=== PATIENT | female | born 1930 | race Caucasian/White ===

== ENCOUNTER 2018-05-04 09:32 | Outpatient (CLI) | payer MEDICARE, OTHER ==
[2018-05-04] MEDS ORDERED: ISOVUE-370 76%-LOCM 1 ML ONE (11:23)
== END 2018-05-04 09:33 | disposition home or self-care (01) ==
LOC: BICCT 09:32
PROVIDERS: ATTEND Family Medicine
DX: R14.0 Abdominal distension (gaseous) (principal); R63.4 Abnormal weight loss; K86.2 Cyst of pancreas
CPT/HCPCS: 74022; 74177

== ENCOUNTER 2018-06-09 16:07 | Emergency (ER) | payer MEDICARE, OTHER ==
--- NOTE | 2018-06-09 17:08 | CT ---
CT CERVICAL SPINE WITHOUT CONTRAST 06/09/18 INDICATION: History of fall with neck pain. COMPARISON: None. FINDINGS: No acute fracture or subluxation is evident. There is mild multilevel spondylosis of the cervical spi ne most pronounced at C5-6. Craniocervical junction appears within normal limits. There is mild mucos al thickening within the sphenoid sinus. Prevertebral soft tissues are within normal limits. The lung apices are clear. IMPRESSION: 1. No acute fracture or subluxation is evident. 2. Mild spondylosis cervical spine. POS: [facility]
--- NOTE | 2018-06-09 17:11 | CT ---
CT OF THE BRAIN WITHOUT CONTRAST 06/09/18 INDICATION: History of fall. FINDINGS: There is a large frontal scalp contusion. There is moderate chronic small white matter ischemic keene e which appears mildly progressed from a comparison in 2008. No definite acute infarct, hemorrhage or hydrocephalus is present. The skull appears intact. Mastoid air cells are clear. IMPRESSION: 1. No acute intracranial abnormality. 2. Progression in the moderate chronic small vessel white matter ischemic change seen when tyree red to the prior exam. 3. Left frontal scalp contusion. POS: [facility]
[2018-06-09] MEDS ORDERED: Bacitracin Zinc 1 Packet ONE (17:35)
[2018-06-09] MEDS ORDERED: Adacel (T-DAP) 0.5 ML VIAL ONE (17:38)
== END 2018-06-09 18:11 | disposition home or self-care (01) ==
LOC: ERS 16:07
DX: S00.03XA Contusion of scalp, initial encounter (principal); E78.5 Hyperlipidemia, unspecified; I10 Essential (primary) hypertension; Z23 Encounter for immunization; W01.0XXA Fall on same level from slipping, tripping and stumbling without subsequent striking against object, initial encounter
CPT/HCPCS: 12011; 70450; 72125; 90471; 90715

== ENCOUNTER 2018-10-13 09:04 | Inpatient (IN) | payer MEDICARE, OTHER ==
[2018-10-13 09:28] LABS: Bilirubin Negative (Negative); Blood, Urine Small (Negative); Glucose, Urine (Dipstick) Negative (Negative); Leukocyte Negative (Negative); Nitrite Negative (Negative); Protein, Urine (Dipstick) 30 mg/dL (Neg-Trace); Urobilinogen 0.2 mg/dL (0.2-1.0)
[2018-10-13 09:30] LABS: Clarity Hazy (Clear); Specific Gravity, Urine 1.026 (1.002-1.036)
[2018-10-13 09:33] LABS: Bacteria/HPF None Seen HPF (None Seen); Hyaline Casts/LPF 0-3 HYALINE CAST LPF (0-3 Hyaline); Other Microscopic Description Less than 2 mL rec'd; RBC/HPF 0-3 HPF (0-3); Squamous Epithelial 0-3 HPF (0-3); WBC/HPF 0-3 HPF (0-3)
[2018-10-13] MEDS ORDERED: Acetaminophen 325 MG TAB ONE (09:48)
[2018-10-13 10:13] LABS: #Lymphocytes 1.2 thou/uL (1.20-3.40); #Monocytes 0.3 thou/uL (0.11-0.59); #Neutrophils 4.3 thou/uL (1.40-6.50); %Basophils 0.2 % (0.0-1.0); %Eosinophils 0.4 % (0.0-10.0); %Lymphocytes 20.7 % (21.0-51.0); %Monocytes 4.5 % (0.0-10.0); %Neutrophils 74.3 % (42.0-75.0); Hemoglobin 14.1 g/dL (12.0-16.0); Mean Corpuscular HGB CONC 34.6 g/dL (32.0-36.0); Mean Corpuscular Hemoglobin 32.3 pg (27.0-31.0); Mean Corpuscular Volume 93.3 fL (78.0-98.0); Mean Platelet Volume 7.5 fL (7.4-10.4); Platelet Count 206 thou/uL (130-400); Red Blood Cell (RBC) Count 4.38 mill/uL (4.20-5.40); White Blood Cell (WBC) Count 5.8 thou/uL (4.8-10.8)
[2018-10-13] MEDS ORDERED: ISOVUE-370 76%-LOCM 1 ML ONE (10:15)
[2018-10-13 10:37] LABS: ALT (SGPT) 46 U/L (8-55); AST (SGOT) 35 U/L (5-34); Albumin 4.3 g/dL (3.4-4.8); Alkaline Phosphatase 47 U/L (40-150); Anion Gap 17 mmol/L (10-20); BUN (Urea Nitrogen) 20 mg/dL (9.8-20.1); Bilirubin, Total 0.6 mg/dL (0.2-1.2); Calc. Creatinine Clearance 0 mL/min (70-130); Calcium 10.1 mg/dL (7.8-10.44); Carbon Dioxide 26 mmol/L (23-31); Chloride 101 mmol/L (98-107); Estimated GFR-MDRD 38; Globulin 2.6 g/dL (2.4-3.5); Glucose 145 mg/dL (83-110); Potassium 3.8 mmol/L (3.5-5.1); Protein, Total 6.9 g/dL (6.0-8.3); Sodium 140 mmol/L (136-145)
[2018-10-13 10:41] LABS: CKMB 4.7 ng/mL (0-6.6); Troponin I 0.037 ng/mL (< 0.028)
--- NOTE | 2018-10-13 10:58 | RAD ---
RIGHT KNEE 4 VIEWS: HISTORY: Fall with knee pain. FINDINGS: No signs of fracture, dislocation, or joint effusion. Fairly minimal arthritic changes of the knee a re present. The bones appear slightly demineralized. IMPRESSION: No acute findings. POS: [facility]
--- NOTE | 2018-10-13 10:59 | RAD ---
PORTABLE CHEST: HISTORY: Multiple falls. Slipped off bed today. FINDINGS: The heart size is enlarged. There are atherosclerotic changes of the aorta. The lungs are clear of any infiltrates. I do not appreciate ay rib fractures. No signs of pneumothorax or pleural effusion . IMPRESSION: Cardiomegaly. POS: [facility]
[2018-10-13] MEDS ORDERED: Aspirin 325 MG TAB ONE (11:10)
--- NOTE | 2018-10-13 12:37 | HP ---
PRIMARY CARE PHYSICIAN: Dr. Kiera Bacon. REASON FOR ADMISSION: Generalized weakness, elevated troponin, frequent falls. HISTORY OF PRESENT ILLNESS: An 88-year-old female who has underlying history of hypertension, diabet es type 2, dyslipidemia, and hypothyroidism who lives at home with family. For last several months, patient has increasing weakness. Patient had frequent falls as well. Per family member, patient had one fall in May. At that time, she had a contusion in scalp required emergency room visit. This m orning, the patient was trying to get out of bed and she fell down and subsequently she was not able to get up from the floor. Lately, patient is becoming more and more forgetful. The patient requires assistance with all daily activities of routine life. The patient is also forgetting to take medica tion. Patient never had any agitation or restlessness. Patient's family member also worried about her abdominal distention. Patient's primary care physicia n was trying to treat her with stool softener without any significant improvement. The patient's vinita etite is also reduced and she lost significant amount of weight. The patient's family member reports that for last few months, she is gradually going downhill in her overall health. REVIEW OF SYSTEMS: The following complete review of systems was negative, unless otherwise mentioned in the HPI or below: Constitutional: Weight loss or gain, ability to conduct usual activities. Skin: Rash, itching. Eyes: Double vision, pain. ENT/Mouth: Nose bleeding, neck stiffness, pain, tenderness. Cardiovascular: Palpitations, dyspnea on exertion, orthopnea. Respiratory: Shortness of breath, wheezing, cough, hemoptysis, fever or night sweats. Gastrointestinal: Poor appetite, abdominal pain, heartburn, nausea, vomiting, constipation, or diarr hea. Genitourinary: Urgency, frequency, dysuria, nocturia. Musculoskeletal: Pain, swelling. Neurologic/Psychiatric: Anxiety, depression. Allergy/Immunologic: Skin rash, bleeding tendency. Review of systems tried to review with the patient, but not reliable because of patient's cognitive i mpairment. PAST MEDICAL HISTORY: Hypertension, diabetes type 2, dyslipidemia, hypothyroidism, dementia, physica l deconditioning, chronic constipation. PAST SURGICAL HISTORY: Patient is not able to provide any detailed previous surgical history. PAST PSYCHIATRIC HISTORY: Reviewed and negative. ALLERGIES: No known drug allergy. CURRENT HOME MEDICATIONS: Aspirin 81 mg p.o. daily, hydrochlorothiazide 12.5 mg daily, Prinzide 20/1 2.5 one tablet daily, metformin 500 mg twice daily, Zocor 20 mg at bedtime, Synthroid 100 mcg p.o. da caren, vitamin D3 400 units daily, calcium with vitamin D 1 tablet p.o. daily. FAMILY HISTORY: No strong family history of premature coronary artery disease, stroke or cancer. SOCIAL HISTORY: Patient is . Her is accompanying him. Lives at home. No history of tobacco, alcohol or illicit drug abuse. She ambulates with a cane. She had unsteady gait. EMERGENCY ROOM COURSE: Patient was planned to discharge from ER to rehab, but as troponin came back positive and that is why patient decided to be admitted for observation, she is given aspirin 325 mg, IV fluid, and atenolol. PHYSICAL EXAMINATION: VITAL SIGNS: Currently, blood pressure 191/101, pulse 87, respiratory rate 18, temperature 97.4, sat uration 95% on room air and weight 65 kilograms. GENERAL: Patient is currently alert, awake. Follows simple commands, but cognitive function poor. HEAD: Normocephalic, atraumatic. EYES: Pupils round, reactive to light. Extraocular muscle intact. ENT: Oropharynx within normal limits. Moist mucous membranes, no oral lesion, no pharyngeal erythem a, no exudate. NECK: Supple, no JVD, no thyromegaly, no carotid bruit. LUNGS: Clear to auscultation without any rhonchi or rales. CARDIAC: S1 and S2 regular without any murmur. ABDOMEN: Protuberant, bowel sounds present. Hard mass noted on the right side, tender. No suprapub ic tenderness, no peritoneal sign, no guarding, no rigidity. GENITOURINARY: Within normal limit. BACK: Stage II decubitus ulcer at coccyx present on admission. Upper extremity passive movements of all joints are normal. Lower extremity passive movements of all joints are normal. Good distal pul sation. SKIN: No skin rash. HEMATOLOGIC: No lymphadenopathy. PSYCHIATRIC: Normal affect. NEUROLOGIC: She is moving all 4 limbs. Her speech is normal. Grossly nonfocal neurological examina tion. IMAGING DATA AND SIGNIFICANT LABORATORY DATA: EKG showing nonspecific ST-T changes, left axis deviat ion. CBC: WBC 5.8, hemoglobin 14.1, platelet 206. BMP: Sodium 140, potassium 3.8, chloride 101, c arbon dioxide 26, anion gap 17, BUN 20, creatinine 1.31, glucose 145, calcium 10.1. LFT: AST 35, AL T 46, alkaline phosphatase 47, albumin 4.3, CK-MB 4.7, troponin I 0.037, TSH 86.97. Urinalysis unrem arkable. Chest x-ray based on my review, cardiomegaly. Knee x-ray which was done for patient's knee pain negative for any fracture or dislocation. ASSESSMENT AND PLAN/IMPRESSION: 1. Generalized weakness, multifactorial. Patient has decreasing muscle mass from poor p.o. intake. She has chronic constipation and abdominal distention and that is preventing her to eat more. James cadet also has uncontrolled hypothyroidism. At this point, we will need to rule out cardiac etiology. We will treat underlying hypothyroidism. The patient will need PT, OT, and family member requesting rehabilitation evaluation if she qualifies. 2. Elevated troponin. Patient does not have any chest pain. Her EKG is nonspecific. We will do se rial cardiac enzymes. We will see trend of troponin and we will monitor on telemetry floor. I spoke with the family member as patient does not have any angina. We altogether agreed not to do any stre ss test on her because they are not interested in getting any further in treatment with a cardiac cat heterization or stent or any kind of surgery in case of abnormal stress test and that is why we will not perform any stress test at this point, but will do only echocardiography to assess ejection fract ion and other structural abnormality. 3. Hypothyroidism, uncontrolled due to her noncompliance with the treatment. The patient will be gi erik Synthroid 150 mcg p.o. daily and at that dose will be continued and repeat TSH will be checked af ter 3 months with a followup with primary care physician. 4. Mild acute kidney injury. The patient will be given gentle IV fluid at NS 50 mL per hour. 5. Hypertension. The patient's blood pressure is not well controlled. We will continue with lisino pril 20 mg p.o. daily. We will discontinue hydrochlorothiazide. We will add Coreg 12.5 mg twice fabienne ly and we will use hydralazine on p.r.n. basis. 6. Diabetes type 2. We will continue insulin as per sliding scale protocol. We will continue metfo rmin 500 mg twice daily. 7. Dyslipidemia. Check lipid profile tomorrow and continue Zocor 20 mg p.o. at bedtime. 8. Chronic constipation. We will do x-ray abdomen to see sodium. We will do CT of the abdomen and pelvis given patient has abdominal distention and patient's family member is interested in if any spa ce occupying lesion contributing to her quad or Chronic constipation. We will do CT and based on janeth t finding, we will decide next step will try to give her a Fleet enema. 9. Alzheimer's dementia. Patient needs supportive care. The patient will not get any benefit with current Alzheimer's medication. 10. Deep venous thrombosis prophylaxis. Sequential compression device boots. 11. Gastrointestinal prophylaxis, Pepcid 20 mg p.o. b.i.d. 12. Code status. I spoke with the family member, but they wanted to take time to decide about her c ode status and they will let us know later on today or maybe tomorrow morning. At that time, we will change accordingly, but currently we are keeping full code status. DISPOSITION AND PLAN: Based on clinical course.
[2018-10-13] MEDS ORDERED: Eucerin (Mineral Oil/Petrolatum,White) 30 gm Jar TOP PRN (14:22)
[2018-10-13] MEDS ORDERED: Acetaminophen 325 MG TAB PO PRN (14:22)
[2018-10-13] MEDS ORDERED: Diabetic Tussin 200 MG/10 ML UDCUP PO PRN (14:22)
[2018-10-13] MEDS ORDERED: hydrALAZINE 20 MG/ML VIAL SLOW IVP PRN (14:22)
[2018-10-13] MEDS ORDERED: Sodium Chloride 0.65% Nasal 44 ML BOT EA NARE PRN (14:22)
[2018-10-13] MEDS ORDERED: HumaLOG 300 UNITS/3 ML VIAL SC PRN (14:22)
[2018-10-13] MEDS ORDERED: Bisacodyl 10 MG SUPP PR PRN (14:22)
[2018-10-13] MEDS ORDERED: Senokot S 8.6-50 MG TAB PO PRN (14:22)
[2018-10-13] MEDS ORDERED: Dextrose 5% in Water 1,000 ML IV PRN (14:22)
[2018-10-13] MEDS ORDERED: Bisacodyl 5 MG TAB PO PRN (14:22)
[2018-10-13] MEDS ORDERED: Artificial Tear Sol 15 ML BOT EA EYE PRN (14:22)
[2018-10-13] MEDS ORDERED: Dextrose 50% Abboject 50 ML SYRINGE SLOW IVP PRN (14:22)
[2018-10-13] MEDS ORDERED: Nitroglycerin 0.4 MG TAB (25 Tab Bottle) SL PRN (14:22)
[2018-10-13] MEDS ORDERED: Ondansetron PF 4 MG/2 ML Vial IVP PRN (14:22)
[2018-10-13 14:28] LABS: Troponin I 0.054 ng/mL (< 0.028)
[2018-10-13] MEDS ORDERED: Fleet Enema 133 ML BOT PR SCH (15:00)
[2018-10-13] MEDS: Nitroglycerin 2% Ointment 1 INCH/1 GM Packet TOP SCH ×2 (15:37→22:16)
[2018-10-13 17:21] VITALS: BMI 19.0
--- NOTE | 2018-10-13 17:37 | CT ---
CT ABDOMEN AND PELVIS WITH IV CONTRAST: HISTORY: An 88-year-old female with a history of abdominal distention. Unable to have bowel movement. COMPARISON: 05/04/2018 FINDINGS: There is evidence for a moderate sized pericardial effusion, measuring up to 2.4 cm, overlying the le ft ventricle. Small bilateral pleural effusions. There is bilateral vascular congestion with some m inimal subsegmental atelectasis in the lung bases. Small, stable left lobe of liver cyst, evidence f or minimal ascites. Some nonspecific edematous changes throughout the mesentery, as well as extensiv e subcutaneous edema, evidence for anasarca. Small, stable cyst in the pancreatic head, at 1 cm, whe n comparison is made to 05/04/2018. There is no renal calculus or ureteral calculus. There is some very mild fullness of the left upper renal collecting system and slightly more moderate fullness of the right upper renal collecting syste m. There is very extensive solid fecal material throughout the entire colon, with a dilated sigmoid colon, transverse colon, left colon, and right colon, and a very markedly and severely dilated rectum , up to 11.7 cm transversely, although this is not significantly changed from the prior study. No ev idence for abscess. IMPRESSION: 1. Developing pericardial effusion. 2. Subcutaneous tissue fat stranding with some minimal fat stranding within the mesentery and small amount of ascites and small bilateral pleural effusions, evidence for anasarca. 3. Stable, small liver cyst and pancreatic head cyst, and cholelithiasis. 4. Mild to moderate dilatation of both right and left upper renal collecting systems, without renal calculus or genitourinary calculus. 5. Very severe solid fecal material throughout the entire colon with a markedly dilated colon and a very markedly dilated rectum, but this shows little change from the prior study. 6. No other significant acute process. POS: [facility]
[2018-10-13] MEDS: Sodium Chloride 0.9% 1,000 ML IV SCH (18:20)
[2018-10-13] MEDS: Atorvastatin Calcium 10 MG TAB PO SCH (22:15)
[2018-10-13] MEDS: Famotidine 20 MG TAB PO SCH (22:15)
[2018-10-13] MEDS: Carvedilol 6.25 MG TAB PO SCH (22:15)
[2018-10-14] MEDS: Levothyroxine 175 MCG TAB PO SCH (06:08)
[2018-10-14] MEDS: Nitroglycerin 2% Ointment 1 INCH/1 GM Packet TOP SCH ×3 (06:08→22:04)
[2018-10-14 06:10] LABS: #Lymphocytes 0.8 thou/uL (1.20-3.40); #Monocytes 0.4 thou/uL (0.11-0.59); #Neutrophils 7.4 thou/uL (1.40-6.50); %Basophils 0.1 % (0.0-1.0); %Lymphocytes 8.8 % (21.0-51.0); %Monocytes 4.8 % (0.0-10.0); %Neutrophils 86.3 % (42.0-75.0); Hemoglobin 13.1 g/dL (12.0-16.0); Mean Corpuscular HGB CONC 35.1 g/dL (32.0-36.0); Mean Corpuscular Hemoglobin 32.5 pg (27.0-31.0); Mean Corpuscular Volume 92.8 fL (78.0-98.0); Mean Platelet Volume 7.4 fL (7.4-10.4); Platelet Count 216 thou/uL (130-400); RBC Distribution Width 13.1 % (11.5-14.5); Red Blood Cell (RBC) Count 4.02 mill/uL (4.20-5.40); White Blood Cell (WBC) Count 8.6 thou/uL (4.8-10.8)
[2018-10-14 06:27] LABS: Anion Gap 16 mmol/L (10-20); BUN (Urea Nitrogen) 17 mg/dL (9.8-20.1); Calc. Creatinine Clearance 30 mL/min (70-130); Calcium 8.2 mg/dL (7.8-10.44); Carbon Dioxide 23 mmol/L (23-31); Cardiac Risk 3.8 (Less than 4.5); Chloride 102 mmol/L (98-107); Cholesterol 235 mg/dl (< 200 Desired); Estimated GFR-MDRD 46; Glucose 194 mg/dL (83-110); HDL Cholesterol 62 mg/dL (>60 Neg Risk); LDL Cholesterol, Calculated 151 mg/dL; Potassium 3.7 mmol/L (3.5-5.1); Sodium 137 mmol/L (136-145); Triglycerides 111 mg/dL (Less than 150)
[2018-10-14] MEDS ORDERED: Prevnar 13-Val Conj/PF 0.5 ML SYRINGE IM ONE (09:00)
[2018-10-14] MEDS ORDERED: Polyethylene Glycol 3350 17 GM Packet PO SCH (09:00)
[2018-10-14] MEDS: Carvedilol 6.25 MG TAB PO SCH ×2 (09:03→22:04)
[2018-10-14] MEDS: Polyethylene Glycol 3350 17 GM Packet PO SCH ×3 (09:03→22:05)
[2018-10-14] MEDS: Lisinopril 20 MG TAB PO SCH (09:03)
[2018-10-14] MEDS: Famotidine 20 MG TAB PO SCH ×2 (09:04→22:05)
--- NOTE | 2018-10-14 10:16 | PDOC.PN ---
- Subjective Encounter Start Date: 10/14/18 Encounter Start Time: 07:30 -: old records requested/rev pt's daughter bedside, she was given enema last night after that she had lot of BM - Objective Resuscitation Status: Resuscitation Status FULL:Full Resuscitation MAR Reviewed: Yes Vital Signs & Weight: Vital Signs (12 hours) Temp Pulse Resp BP Pulse Ox 10/14/18 04:00 98.7 F 69 12 124/69 98 10/14/18 00:00 98 F 85 16 145/79 H 95 Weight Weight 118 lb Result Diagrams: 10/14/18 05:38 10/14/18 05:38 Additional Labs: Accuchecks 10/14/18 10/13/18 10/13/18 05:33 21:15 20:53 POC Glucose 216 H 199 H 142 H 10/13/18 17:53 POC Glucose 123 H Radiology Reviewed by me: Yes (CT abdomen reviewed) EKG Reviewed by me: Yes (NSR) Phys Exam - Physical Examination Constitutional: NAD HEENT: PERRLA, moist MMs, sclera anicteric Neck: no JVD, supple Respiratory: no wheezing, no rales, no rhonchi Cardiovascular: RRR, no significant murmur, no rub Gastrointestinal: soft, no distention, positive bowel sounds discomfort noted Musculoskeletal: no edema, pulses present Neurological: non-focal, normal sensation Lymphatic: no nodes Psychiatric: normal affect Skin: no rash, normal turgor Dx/Plan (1) Acute kidney injury Code(s): N17.9 - ACUTE KIDNEY FAILURE, UNSPECIFIED Status: Acute Comment: improved (2) Constipation Code(s): K59.00 - CONSTIPATION, UNSPECIFIED Status: Acute Comment: improving (3) Elevated troponin Code(s): R74.8 - ABNORMAL LEVELS OF OTHER SERUM ENZYMES Status: Acute Comment: demand ischemia (4) Recurrent falls Code(s): R29.6 - REPEATED FALLS Status: Acute (5) Weakness generalized Code(s): R53.1 - WEAKNESS Status: Acute (6) Diabetes type 2, controlled Code(s): E11.9 - TYPE 2 DIABETES MELLITUS WITHOUT COMPLICATIONS Status: Chronic (7) Dyslipidemia Code(s): E78.5 - HYPERLIPIDEMIA, UNSPECIFIED Status: Chronic (8) Hypertension Code(s): I10 - ESSENTIAL (PRIMARY) HYPERTENSION Status: Chronic (9) Hypothyroidism Code(s): E03.9 - HYPOTHYROIDISM, UNSPECIFIED Status: Chronic (10) Protein-calorie malnutrition, moderate Code(s): E44.0 - MODERATE PROTEIN-CALORIE MALNUTRITION Status: Chronic (11) Dementia Code(s): F03.90 - UNSPECIFIED DEMENTIA WITHOUT BEHAVIORAL DISTURBANCE Status: Chronic - Plan cont current plan of care, plan discussed w/ family, PT/OT, social services assistant * will give one more fleet enema * will consult GI for evaluation * medication reviewed as below * symptomatic treatment * discussed with daughter bedside * will monitor today. * may need placement Review of Systems - Review of Systems Other: not reliable due to her dementia - Medications/Allergies Allergies/Adverse Reactions: Allergies Allergy/AdvReac Type Severity Reaction Status Date / Time No Known Allergies Allergy Unverified 10/13/18 14:14 Medications: Current Medications Acetaminophen (Tylenol) 650 mg PO Q4H PRN PRN Reason: Headache/Fever/Mild Pain (1-3) Artificial Tears (Tears Renewed 15ml Bottle) 2 drop EA EYE PRN PRN PRN Reason: Dry Eyes Aspirin (Aspirin Chewable) 81 mg PO DAILY [facility] Last Admin: 10/14/18 09:03 Dose: 81 mg Atorvastatin Calcium (Lipitor) 10 mg PO HS [facility] Last Admin: 10/13/18 22:15 Dose: 10 mg Bisacodyl (Dulcolax) 10 mg PO DAILYPRN PRN PRN Reason: Constipation Bisacodyl (Dulcolax) 10 mg MT DAILYPRN PRN PRN Reason: Constipation Carvedilol (Coreg) 12.5 mg PO BID [facility] Last Admin: 10/14/18 09:03 Dose: 12.5 mg Dextrose/Water (Dextrose 50%) 25 gm SLOW IVP PRN PRN PRN Reason: Hypoglycemia Famotidine (Pepcid) 20 mg PO BID [facility] Last Admin: 10/14/18 09:04 Dose: 20 mg Glucagon (Glucagon) 1 mg IM PRN PRN PRN Reason: Hypoglycemia Guaifenesin (Robitussin Sf) 200 mg PO Q4H PRN PRN Reason: Cough Hydralazine HCl (Apresoline) 10 mg SLOW IVP Q4H PRN PRN Reason: SBP > 180 and HR < 70 Last Admin: 10/13/18 15:37 Dose: 10 mg Sodium Chloride (Normal Saline 0.9%) 1,000 mls @ 50 mls/hr IV .Q20H [facility] Last Admin: 10/13/18 18:20 Dose: 1,000 mls Dextrose/Water (D5w) 1,000 mls @ 0 mls/hr IV .Q0M PRN PRN Reason: Hypoglycemia Insulin Human Lispro (Humalog) 0 units SC .MODERATE SLIDING SC PRN PRN Reason: Moderate Correctional Scale Insulin Human Lispro (Humalog) 0 units SC .BEDTIME SLIDING SC PRN PRN Reason: Bedtime Correctional Scale Levothyroxine Sodium (Synthroid) 175 mcg PO 0600 [facility] Last Admin: 10/14/18 06:08 Dose: 175 mcg Lisinopril (Zestril) 20 mg PO DAILY [facility] Last Admin: 10/14/18 09:03 Dose: 20 mg Mineral Oil/White Petrolatum (Eucerin Cream) 0 gm TOP BIDPRN PRN PRN Reason: Dry Skin Nitroglycerin (Nitro-Bid 2% Ointment) 0.5 inch TOP Q8HR [facility] Last Admin: 10/14/18 06:08 Dose: 0.5 inch Nitroglycerin (Nitrostat) 0.4 mg SL Q5MIN PRN PRN Reason: Chest Pain Ondansetron HCl (Zofran) 4 mg IVP Q6H PRN PRN Reason: Nausea/Vomiting Polyethylene Glycol (Miralax) 17 gm PO TID [facility] Last Admin: 10/14/18 09:03 Dose: 17 gm Senna/Docusate Sodium (Senokot S) 2 tab PO BID PRN PRN Reason: Constipation Sodium Chloride ([place] Nasal [place] 0.65%) 0 ml EA NARE QIDPRN PRN PRN Reason: Nasal Congestion
[2018-10-14] MEDS: Sodium Chloride 0.9% 1,000 ML IV SCH (11:49)
[2018-10-14] MEDS: Fleet Enema 133 ML BOT PR SCH ×2 (14:16→14:50)
[2018-10-14] MEDS: Atorvastatin Calcium 10 MG TAB PO SCH (22:04)
[2018-10-15] MEDS: Levothyroxine 175 MCG TAB PO SCH (06:02)
[2018-10-15] MEDS: Nitroglycerin 2% Ointment 1 INCH/1 GM Packet TOP SCH ×3 (06:03→20:41)
[2018-10-15] MEDS: Sodium Chloride 0.9% 1,000 ML IV SCH ×2 (06:37→11:32)
[2018-10-15] MEDS: Lisinopril 20 MG TAB PO SCH (09:21)
[2018-10-15] MEDS: Famotidine 20 MG TAB PO SCH ×2 (09:21→20:40)
[2018-10-15] MEDS: Carvedilol 6.25 MG TAB PO SCH ×2 (09:21→20:40)
[2018-10-15] MEDS: Polyethylene Glycol 3350 17 GM Packet PO SCH ×3 (09:22→20:41)
--- NOTE | 2018-10-15 10:06 | PDOC.PN ---
- Subjective Encounter Start Date: 10/15/18 Encounter Start Time: 07:40 -: old records requested/rev Patient seen and examined. No new complaints. No overnight events - Objective Resuscitation Status: Resuscitation Status FULL:Full Resuscitation MAR Reviewed: Yes Vital Signs & Weight: Vital Signs (12 hours) Temp Pulse Resp BP Pulse Ox 10/15/18 04:00 98.0 F 58 L 14 122/61 96 10/15/18 03:00 95 Weight Weight 118 lb I&O: 10/14/18 10/15/18 10/16/18 06:59 06:59 06:59 Intake Total 860 Balance 860 Result Diagrams: 10/14/18 05:38 10/14/18 05:38 Additional Labs: Accuchecks 10/15/18 10/14/18 10/14/18 05:57 21:07 10:56 POC Glucose 133 H 129 H 173 H EKG Reviewed by me: Yes (nsr) Phys Exam - Physical Examination Constitutional: NAD HEENT: PERRLA, moist MMs, sclera anicteric Neck: no JVD, supple Respiratory: no wheezing, no rales, no rhonchi Cardiovascular: RRR, no significant murmur, no rub Gastrointestinal: soft, non-tender, no distention, positive bowel sounds Musculoskeletal: no edema, pulses present Neurological: non-focal, normal sensation, moves all 4 limbs Lymphatic: no nodes Psychiatric: normal affect Skin: no rash, normal turgor Dx/Plan (1) Acute kidney injury Code(s): N17.9 - ACUTE KIDNEY FAILURE, UNSPECIFIED Status: Acute Comment: improved (2) Constipation Code(s): K59.00 - CONSTIPATION, UNSPECIFIED Status: Acute Comment: improving (3) Elevated troponin Code(s): R74.8 - ABNORMAL LEVELS OF OTHER SERUM ENZYMES Status: Acute Comment: demand ischemia (4) Recurrent falls Code(s): R29.6 - REPEATED FALLS Status: Acute (5) Weakness generalized Code(s): R53.1 - WEAKNESS Status: Acute (6) Diabetes type 2, controlled Code(s): E11.9 - TYPE 2 DIABETES MELLITUS WITHOUT COMPLICATIONS Status: Chronic (7) Dyslipidemia Code(s): E78.5 - HYPERLIPIDEMIA, UNSPECIFIED Status: Chronic (8) Hypertension Code(s): I10 - ESSENTIAL (PRIMARY) HYPERTENSION Status: Chronic (9) Hypothyroidism Code(s): E03.9 - HYPOTHYROIDISM, UNSPECIFIED Status: Chronic (10) Protein-calorie malnutrition, moderate Code(s): E44.0 - MODERATE PROTEIN-CALORIE MALNUTRITION Status: Chronic (11) Dementia Code(s): F03.90 - UNSPECIFIED DEMENTIA WITHOUT BEHAVIORAL DISTURBANCE Status: Chronic - Plan cont current plan of care, plan discussed w/ family, PT/OT, psych social worker * family wants to consider rehab * dc tele * transfer to medical * Gi will see her today per family request * medication reviewed as below * symptomatic treatment * will get xray kub today. Review of Systems - Review of Systems Other: not reliable due to dementia - Medications/Allergies Allergies/Adverse Reactions: Allergies Allergy/AdvReac Type Severity Reaction Status Date / Time No Known Allergies Allergy Unverified 10/13/18 14:14 Medications: Current Medications Acetaminophen (Tylenol) 650 mg PO Q4H PRN PRN Reason: Headache/Fever/Mild Pain (1-3) Artificial Tears (Tears Renewed 15ml Bottle) 2 drop EA EYE PRN PRN PRN Reason: Dry Eyes Aspirin (Aspirin Chewable) 81 mg PO DAILY [facility] Last Admin: 10/15/18 09:21 Dose: 81 mg Atorvastatin Calcium (Lipitor) 10 mg PO HS [facility] Last Admin: 10/14/18 22:04 Dose: 10 mg Bisacodyl (Dulcolax) 10 mg PO DAILYPRN PRN PRN Reason: Constipation Bisacodyl (Dulcolax) 10 mg MT DAILYPRN PRN PRN Reason: Constipation Carvedilol (Coreg) 12.5 mg PO BID [facility] Last Admin: 10/15/18 09:21 Dose: 12.5 mg Dextrose/Water (Dextrose 50%) 25 gm SLOW IVP PRN PRN PRN Reason: Hypoglycemia Famotidine (Pepcid) 20 mg PO BID [facility] Last Admin: 10/15/18 09:21 Dose: 20 mg Glucagon (Glucagon) 1 mg IM PRN PRN PRN Reason: Hypoglycemia Guaifenesin (Robitussin Sf) 200 mg PO Q4H PRN PRN Reason: Cough Hydralazine HCl (Apresoline) 10 mg SLOW IVP Q4H PRN PRN Reason: SBP > 180 and HR < 70 Last Admin: 10/13/18 15:37 Dose: 10 mg Sodium Chloride (Normal Saline 0.9%) 1,000 mls @ 50 mls/hr IV .Q20H [facility] Last Admin: 10/15/18 06:37 Dose: Not Given Dextrose/Water (D5w) 1,000 mls @ 0 mls/hr IV .Q0M PRN PRN Reason: Hypoglycemia Insulin Human Lispro (Humalog) 0 units SC .MODERATE SLIDING SC PRN PRN Reason: Moderate Correctional Scale Insulin Human Lispro (Humalog) 0 units SC .BEDTIME SLIDING SC PRN PRN Reason: Bedtime Correctional Scale Levothyroxine Sodium (Synthroid) 175 mcg PO 0600 [facility] Last Admin: 10/15/18 06:02 Dose: 175 mcg Lisinopril (Zestril) 20 mg PO DAILY [facility] Last Admin: 10/15/18 09:21 Dose: 20 mg Mineral Oil/White Petrolatum (Eucerin Cream) 0 gm TOP BIDPRN PRN PRN Reason: Dry Skin Nitroglycerin (Nitro-Bid 2% Ointment) 0.5 inch TOP Q8HR [facility] Last Admin: 10/15/18 06:03 Dose: Not Given Nitroglycerin (Nitrostat) 0.4 mg SL Q5MIN PRN PRN Reason: Chest Pain Ondansetron HCl (Zofran) 4 mg IVP Q6H PRN PRN Reason: Nausea/Vomiting Polyethylene Glycol (Miralax) 17 gm PO TID [facility] Last Admin: 10/15/18 09:22 Dose: 17 gm Senna/Docusate Sodium (Senokot S) 2 tab PO BID PRN PRN Reason: Constipation Sodium Chloride ([place] Nasal [place] 0.65%) 0 ml EA NARE QIDPRN PRN PRN Reason: Nasal Congestion
--- NOTE | 2018-10-15 16:41 | RAD ---
ONE VIEW ABDOMEN: History: Constipation. Comparison: None. FINDINGS: There is evidence of previous vertebroplasty change. Fecal material is noted, predominately in the ri ght hemicolon and to a lesser extent the descending colon. No definite evidence of constipation. No s uspicious densities in the abdomen or pelvis. No pneumoperitoneum on the supine projection. IMPRESSION: No radiographic evidence of constipation. POS: [facility]
--- NOTE | 2018-10-15 17:50 | CON ---
DATE OF CONSULTATION: 10/15/2018 REASON FOR CONSULTATION: Chronic constipation. CONSULTING PHYSICIAN: Dr. Ellie Paul. HISTORY OF PRESENT ILLNESS: The patient is an 88-year-old female with past medical history of hypert ension, diabetes, hyperlipidemia, hypothyroidism, progressing dementia and chronic constipation who i nitially presented to the hospital for the evaluation of frequent falls. Per chart review and with kari jordan with family at bedside, the patient recently had sustained a fall where she was trying to g et out of bed and experienced acute weakness and was fell to the floor and was not able to return to either a sitting or standing position. She was subsequently taken to the [facility] ER for evaluat ion. While in the ER, she was noted to have increased abdominal distention that was also echoed by mickey jimenez's comments stating that she had been having increased abdominal distention over the last month, but also been having constipation issues that have been present for the last 6 months. Upon conferr ing with the patient and family, they were unable to recount her stool frequency, stool consistency o r measures up until this point that had been taken to correct these issues. They were also unclear a s to medications that were being administered at home or whether the medications were actually being taken at home. During this admission to the hospital, she was placed on a fairly aggressive bowel re gimen including as needed use of bisacodyl, enemas and MiraLax 3 times daily in addition to senna/doc usate as needed in order to facilitate having a bowel movement. With this aggressive regimen, she wa s able to have multiple bowel movements yesterday with more semisolid to liquid consistency. Current ly, she denies any nausea, vomiting, fevers, chills, abdominal pain or constipation. REVIEW OF SYSTEMS: A 10-category review of systems was obtained with all responses negative except f or the pertinent positives as was in the HPI. PAST MEDICAL HISTORY: As per HPI. PAST SURGICAL HISTORY: Unknown as the patient and family could not provide any detailed previous jesús gical history. FAMILY HISTORY: Denies any GI malignancies. OUTPATIENT AND INPATIENT MEDICATIONS: Reviewed. ALLERGIES: No known drug allergies. PHYSICAL EXAMINATION: VITAL SIGNS: Temperature 97.8, pulse 61, blood pressure 130/63, respiratory rate 14, satting 96% on room air. GENERAL: The patient was lying in bed in no acute distress, although somewhat somnolent throughout t he entire examination. NECK: Supple. No JVD noted. No scleral icterus noted either. CARDIOVASCULAR: Regular rate and rhythm with no discernible murmurs, gallops or rubs. RESPIRATORY: Clear to auscultation bilaterally with no wheezes or rales. ABDOMEN: Hypoactive bowel sounds, soft, nontender with moderate abdominal distention that was tympan ic to percussion. EXTREMITIES: No cyanosis, clubbing or edema. LABORATORY DATA: CBC with a white blood cell count of 8.6, hemoglobin 13.1, hematocrit 37.3, platele ts 216. Chemistry with sodium of 137, potassium 3.7, chloride 102, CO2 of 23, BUN 17, creatinine 1.1 1, glucose 194, TSH 86.9. 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 ASSESSMENT AND PLAN: The patient is an 88-year-old female with past medical history of hypertension, diabetes, hyperlipidemia, progressing dementia, hypothyroidism, and chronic constipation presenting with continuation of chronic constipation. 1. Constipation: Per the patient's family, they state that the patient had been having complaints o f constipation that had been progressively worsening over the last 6 months. The patient and family were unable to quantify this constipation by either stooling frequency or consistency. However, upon evaluation of her thyroid stimulating hormone, she is significantly hypothyroid at this time raising concern for adequate dosing of the levothyroxine, or if the patient is actually taking at home (I fa vor the latter given the family's account of her medication administration at home) however with aggr essive bowel regimen during this hospitalization, she is now having frequent semi-solid to liquid bow el movements now creating more of a diarrhea type picture than constipation. Her most recent colonos copy was performed on 03/20/2014 which showed a 4 mm tubular adenoma within the cecum, a 1 cm tubular adenoma within the ascending colon, an inflammatory hyperplastic polyp within the rectum, but with t he current clinical situation her constipation is less likely to be due to obstruction or significant polyp formation, but rather slow or delayed colonic transit. RECOMMENDATIONS: 1. With the patient having more frequent watery bowel movements, I would discontinue the senna and d ocusate, in addition to the bisacodyl. 2. I would decrease the MiraLax to twice daily dosing. 3. Add Citrucel 500 mg daily for fiber supplementation. 4. We would avoid any additional enemas at this point. 5. Avoid any narcotics and/or constipating medications. 6. Highly recommend restarting the patient on levothyroxine as severe hypothyroidism could be contri buting to all the above. Given her the resolution of her constipation, we will sign off. I would recommend followup in the GI clinic within 2-3 weeks for further evaluation at that time. Please call with any additional questi ons.
[2018-10-15] MEDS: Atorvastatin Calcium 10 MG TAB PO SCH (20:40)
[2018-10-16] MEDS: Levothyroxine 175 MCG TAB PO SCH (05:11)
[2018-10-16] MEDS: Sodium Chloride 0.9% 1,000 ML IV SCH ×3 (05:12→22:24)
[2018-10-16] MEDS: Nitroglycerin 2% Ointment 1 INCH/1 GM Packet TOP SCH (05:20)
[2018-10-16] MEDS: Famotidine 20 MG TAB PO SCH ×2 (07:57→22:24)
[2018-10-16] MEDS: Polyethylene Glycol 3350 17 GM Packet PO SCH ×2 (07:57→16:22)
[2018-10-16] MEDS: Carvedilol 6.25 MG TAB PO SCH (10:29)
[2018-10-16] MEDS: Lisinopril 20 MG TAB PO SCH (10:30)
[2018-10-16] MEDS ORDERED: ISOVUE-370 76%-LOCM 1 ML ONE (11:53)
--- NOTE | 2018-10-16 12:24 | DIS ---
DATE OF ADMISSION: 10/13/2018 DATE OF DISCHARGE: 10/16/2018 PRIMARY CARE PHYSICIAN: Kiera Bacon MD DISCHARGE DISPOSITION: Pending. PRIMARY DISCHARGE DIAGNOSES: Acute kidney injury, improved; severe constipation, resolved; elevated troponin due to demand ischemia; recurrent fall due to physical deconditioning; moderate protein arlette stanislaw malnutrition; uncontrolled hypothyroidism. SECONDARY DISCHARGE DIAGNOSES: Alzheimer's type of dementia, diabetes type 2, hypertension, dyslipid emia, hypothyroidism. PRIMARY PROCEDURE/OPERATION: None. RADIOLOGICAL INVESTIGATION: Knee x-ray was negative for any fracture. Chest x-ray was normal. Abdo men and pelvis CT scan showed severe constipation. Echocardiography showed normal EF. Abdomen x-ray showed resolution of constipation. SIGNIFICANT LABORATORY DATA: WBC 8.6, hemoglobin 13.1, platelet 216. Sodium 137, creatinine 1.11, c alcium 8.2, LDL 151. TSH of 86. Urinalysis unremarkable. DISCHARGE MEDICATIONS: Aspirin 81 mg daily, calcium with mineral 1 tablet daily, vitamin D3 of 400 u nits p.o. daily, levothyroxine 175 mcg p.o. daily, lisinopril 20 mg p.o. daily, metformin 500 mg p.o. b.i.d., Zocor 20 mg p.o. daily, Lipitor 10 mg p.o. at bedtime, Coreg 12.5 mg p.o. b.i.d., Pepcid 20 mg p.o. daily, MiraLax 17 grams p.o. b.i.d. CONTRAINDICATIONS: None. CODE STATUS: FULL CODE. INPATIENT CONSULTANTS: Dr. Rolly Reardon was consulted while in hospital. TEST RESULTS PENDING ON DISCHARGE: None. ALLERGIES: No known drug allergy. DISCHARGE PLAN: Post hospital, the patient will follow up with primary care physician. HOSPITAL COURSE: An 88-year-old female who was admitted by me. Please see my HPI for further detail s. The patient was brought to the ER because she was falling frequently at home and she was very wea k. In the emergency room, routine evaluation showed elevated troponin and that is why patient was ob served on the telemetry floor. We did serial cardiac enzyme and ruled out acute coronary syndrome, m ostly she has uncontrolled hypothyroidism with TSH 86. She was found with dyslipidemia. She was not taking any medication because of dementia. She was dehydrated when she arrived to emergency room. She was complaining of abdominal pain and that is why we did CT of the abdomen and pelvis and found w ith severe constipation that was treated with Fleet enema and constipation resolved. We did echocard iography which showed normal EF. This patient and family member need not want to go for any aggressi ve intervention and diagnostic tests process. This patient was stabilized and subsequently transferred to medical floor. Family member were intere sted in going to rehab versus correction home. At this point, case filler is working on rehab if she qualifies for rehab. If patient is not qualif gris for rehab, then she may be able to go to correction home under Medicare rules if possible. Otherwise, family will decide later on today to go home with [facility] This patient needs only supportive care. GI saw this patient and she will continue above-m entioned medication. I have seen and examined this patient at bedside. Review of systems not possible because of dementia, but I spoke with the family member at bedside and updated about discharge plan. Paper work for discharge done.
--- NOTE | 2018-10-16 16:14 | CT ---
CT BRAIN WITHOUT CONTRAST: Date: 10/16/18 HISTORY: Left-sided weakness. FINDINGS: Comparison made with exam of 06/09/18. Changes of chronic small vessel ischemic disease are again seen. The ventricular size is stable and t he basilar cisterns are patent. No evidence of acute infarct, hemorrhage, midline shift, or abnormal extra-axial fluid collections are noted. The bony calvarium is intact. The visualized paranasal sinus es and mastoid air cells are well aerated. IMPRESSION: No CT evidence of acute intracranial process. POS: OFF
--- NOTE | 2018-10-16 16:18 | PRG ---
DATE OF SERVICE: 10/16/2018 Ater diagnosis of acute left-sided upper and lower extremity weakness which is predominantly due to r ight MCA, CVA secondary to atherosclerosis, I met with the family at bedside in her room 4435. The p nata's daughter, son, her was present at bedside and I had lengthy discussion about goal of care. I discussed with them about code status, previously family member were not sure about her cod e status and after all family were together and I discussed with them about code status and given bas ic understanding. After that, the patient's decided that the patient's did not want to be resuscitated in her life and that is why based on their request, I have changed to DNR status. Subsequently, I spoke with the family member about feeding tube option in case if patient was not abl e to swallow. In that case, patient's family member at this point okay with the continued feeding op tion. Family member also wanted to continue medical treatment and they do not want any kind of heroic measu res even aggressive intervention in her. Total time spent on advanced care planning is 20 minutes.
--- NOTE | 2018-10-16 17:02 | CT ---
CT ANGIOGRAM OF HEAD WITH CONTRAST CT ANGIOGRAM OF NECK WITH CONTRAST: Date: 10/16/18 HISTORY: Left-sided weakness. COMPARISON: CT brain same date. TECHNIQUE: CT angiogram of head/neck performed after the intravenous administration of contrast. 3D rendering pr ovided. FINDINGS: There is intraluminal filling defect in the distal left main pulmonary artery which appears to extend to the posterior segment of the left upper lobe, as well as within a lingular branch, although incom pletely evaluated. Layering left pleural effusion. Surgical clips along the expected location of the thyroid. No acute cervical spine fracture. No listhesis. No malalignment. The vertebral arteries are codominant. Origins of both vertebral arteries are patent. Origins of both common carotid arteries are patent. Using NASCET criteria, no hemodynamically signifi cant stenosis of the internal carotid arteries. Small volume plaque of the left intradural vertebral artery. The cheesh-na of Baron patent without aneu rysm formation nor thrombosis. Globes are normal. IMPRESSION: 1. Likely a distal left main pulmonary artery embolism, incompletely evaluated. The patient would be nefit from treatment for embolism and a follow-up CT angiogram would be beneficial. 2. Layering left effusion, moderate in size. 3. Using NASCET criteria, no hemodynamically significant stenosis of internal carotid arteries. 4. Intact cheesh-na of Baron without thrombosis, stenosis, nor aneurysm formation. Regina nurse, notified of findings via telephone at 1543 hours. CODE CR. POS: LAN
[2018-10-16] MEDS ORDERED: Enoxaparin Sodium 60 MG/0.6 ML SYRINGE SC SCH (17:30)
--- NOTE | 2018-10-16 17:43 | PRG ---
DATE OF SERVICE: 10/16/2018 SUBJECTIVE: This patient was evaluated by me in the morning in presence of her family. At that time , patient was sleepy and arousable. At that time, we did not notice any weakness even family member did not notice any weakness on the left side. The patient was planned for discharge to home with our [facility] versus rehabilitation versus detention home, but this afternoon when physical therapy evaluating her, at that time they noticed left upper and lower extremity weakness. Patient's speech was clear. She did not have any weakness on the right upper or lower extremity. Onset of this left- sided weakness was not clear. Family member present at bedside. They did not notice as well. OBJECTIVE: VITAL SIGNS: The patient seen and examined at bedside today. Her most recent vital signs, temperatu re 98.2, pulse 56, respiratory rate 18, saturation 92%, blood pressure 113/66, weight 118. GENERAL: The patient is alert, awake, follows command. HEAD: Normocephalic, atraumatic. EYES: Pupils round, reactive to light. ENT: Oropharynx within normal limits. Moist mucous membranes. NECK: Supple. No JVD. LUNGS: Clear to auscultation without any rhonchi or rales. CARDIAC: S1 and S2 regular. No murmur, no gallop. ABDOMEN: Soft and benign, nontender, no peritoneal sign. EXTREMITIES: No edema. NEUROLOGIC: The patient does have dense weakness in left upper and lower extremity. Plantar extenso r on the left side. Right-sided within normal limits. Sensation intact on the left side. Cerebella r sign on the left side unable to test. Reflexes reduced on the left side. Speech intact. SIGNIFICANT LABORATORY DATA: Reviewed. We do not have any more labs today. IMPRESSION AND PLAN: 1. Acute left upper and lower extremity weakness, suspecting right MCA stroke. Onset of time is not certain. At this point, patient is not a candidate for TPA. We will do CT brain without contrast a s well as CT angiography. Neurology will be consulted. Stroke team will be consulted. We will martinez sfer her to stroke floor. We will cancel her discharge. Patient will need PT, OT, speech evaluation . Patient is already on aspirin 81 mg daily, which we will change to 325 mg p.o. daily. We will kenya nge Lipitor to 40 mg p.o. at bedtime. As patient's blood pressure is running low and that is why we will hold on lisinopril and Coreg therapy, we will start IV fluid. We will try to keep her blood pre ssure above around 140 systolic. 2. Elevated troponin. Echocardiography was done and patient does not have any abnormality. The pat ient is on medical therapy. Family member opted not to do any more aggressive intervention. 3. Severe constipation, resolved with Fleet enema. 4. Acute kidney failure improved with hydration. 5. Hypothyroidism. We will continue Synthroid 175 mcg p.o. daily. 6. Deep venous thrombosis prophylaxis, Lovenox 30 mg subcutaneously daily. 7. Gastrointestinal prophylaxis, Pepcid 20 mg p.o. b.i.d. 8. Code status: The patient still remains to be a FULL CODE. Disposition plan based on clinical course. Plan of care discussed with the patient and family member at bedside.
[2018-10-16] MEDS ORDERED: Clopidogrel Bisulfate 75 MG TAB PO SCH (18:00)
[2018-10-16] MEDS: Atorvastatin Calcium 40 MG TAB PO SCH (22:24)
--- NOTE | 2018-10-16 23:50 | ULT ---
BILATERAL LOWER EXTREMITY VENOUS DOPPLER ULTRASOUND: 10/16/2018 HISTORY: Pulmonary embolism. Assess for DVT. COMPARISON: None. TECHNIQUE: Multiplanar dudley-scale sonographic imaging of the venous structures of the bilateral lower extremitie s obtained with color-flow and spectral analysis. FINDINGS: The bilateral common femoral veins, the greater saphenous veins, the profunda femoral veins, the femo ral veins, the popliteal veins, and the posterior tibial veins are patent. There is normal blood josie w, augmentation, and compression within the deep venous system bilaterally. No evidence for DVT is s een on either side. IMPRESSION: No evidence for deep venous thrombosis of either lower extremity. POS: [facility]
[2018-10-17 05:24] LABS: ALT (SGPT) 20 U/L (8-55); AST (SGOT) 16 U/L (5-34); Albumin 2.9 g/dL (3.4-4.8); Alkaline Phosphatase 43 U/L (40-150); Anion Gap 12 mmol/L (10-20); BUN (Urea Nitrogen) 32 mg/dL (9.8-20.1); Bilirubin, Total 0.8 mg/dL (0.2-1.2); Calc. Creatinine Clearance 30 mL/min (70-130); Calcium 7.6 mg/dL (7.8-10.44); Carbon Dioxide 20 mmol/L (23-31); Chloride 109 mmol/L (98-107); Estimated GFR-MDRD 48; Globulin 2.1 g/dL (2.4-3.5); Glucose 147 mg/dL (83-110); Sodium 138 mmol/L (136-145)
[2018-10-17 05:53] LABS: Band 39 % (5-11); Hemoglobin 13.1 g/dL (12.0-16.0); Lymphocytes 14 % (21-51); MDiff Complete? YES; Mean Corpuscular HGB CONC 34.6 g/dL (32.0-36.0); Mean Corpuscular Hemoglobin 32.8 pg (27.0-31.0); Mean Corpuscular Volume 94.6 fL (78.0-98.0); Monocytes 7 % (0-10); Neutrophil 40 % (42-75); Platelet Count 195 thou/uL (130-400); RBC Distribution Width 13.1 % (11.5-14.5); Red Blood Cell (RBC) Count 3.99 mill/uL (4.20-5.40); White Blood Cell (WBC) Count 6.5 thou/uL (4.8-10.8)
[2018-10-17] MEDS: Levothyroxine 175 MCG TAB PO SCH (06:25)
[2018-10-17] MEDS: HumaLOG 300 UNITS/3 ML VIAL SC PRN ×2 (06:26→17:57)
[2018-10-17] MEDS ORDERED: Aspirin 300 MG Suppository PR SCH (09:00)
[2018-10-17] MEDS ORDERED: Aspirin 325 MG TAB PO SCH (09:00)
[2018-10-17] MEDS: Clopidogrel Bisulfate 75 MG TAB PO SCH (09:06)
[2018-10-17] MEDS: Polyethylene Glycol 3350 17 GM Packet PO SCH (09:07)
[2018-10-17] MEDS: Famotidine 20 MG TAB PO SCH ×2 (09:07→22:20)
[2018-10-17] MEDS: Sodium Chloride 0.9% 1,000 ML IV SCH ×2 (09:13→22:19)
--- NOTE | 2018-10-17 12:14 | PDOC.PN ---
- Subjective Encounter Start Date: 10/17/18 Encounter Start Time: 08:50 -: old records requested/rev - Objective Resuscitation Status: 10/17/18 11:39 Resuscitation Status Routine Resuscitation Status: DNAR: NO Resuscitation Discussed with: confirmed with Vital Signs & Weight: Vital Signs (12 hours) Temp Pulse Resp BP Pulse Ox 10/17/18 11:59 98.0 F 59 L 14 136/64 92 L 10/17/18 08:44 93 L 10/17/18 08:00 97.8 F 64 14 138/66 93 L 10/17/18 04:00 98.7 F 65 16 173/81 H 95 Weight Admit Weight 4.169 oz Weight 118 lb I&O: 10/16/18 10/17/18 10/18/18 06:59 06:59 06:59 Intake Total 860 1150 Balance 860 1150 Result Diagrams: 10/17/18 04:36 10/17/18 04:36 Additional Labs: Accuchecks 10/17/18 10/17/18 10/16/18 10:36 05:53 16:11 POC Glucose 144 H 137 H 152 H Dx/Plan (1) Acute CVA (cerebrovascular accident) Code(s): I63.9 - CEREBRAL INFARCTION, UNSPECIFIED Status: Acute (2) Acute kidney injury Code(s): N17.9 - ACUTE KIDNEY FAILURE, UNSPECIFIED Status: Acute Comment: improved (3) Constipation Code(s): K59.00 - CONSTIPATION, UNSPECIFIED Status: Acute Comment: improving (4) Elevated troponin Code(s): R74.8 - ABNORMAL LEVELS OF OTHER SERUM ENZYMES Status: Acute Comment: demand ischemia (5) Pericardial effusion Code(s): I31.3 - PERICARDIAL EFFUSION (NONINFLAMMATORY) Status: Acute (6) Pulmonary embolism Code(s): I26.99 - OTHER PULMONARY EMBOLISM WITHOUT ACUTE COR PULMONALE Status : Acute (7) Recurrent falls Code(s): R29.6 - REPEATED FALLS Status: Acute (8) Weakness generalized Code(s): R53.1 - WEAKNESS Status: Acute (9) Dementia Code(s): F03.90 - UNSPECIFIED DEMENTIA WITHOUT BEHAVIORAL DISTURBANCE Status: Chronic (10) Diabetes type 2, controlled Code(s): E11.9 - TYPE 2 DIABETES MELLITUS WITHOUT COMPLICATIONS Status: Chronic (11) Dyslipidemia Code(s): E78.5 - HYPERLIPIDEMIA, UNSPECIFIED Status: Chronic (12) Hypertension Code(s): I10 - ESSENTIAL (PRIMARY) HYPERTENSION Status: Chronic (13) Hypothyroidism Code(s): E03.9 - HYPOTHYROIDISM, UNSPECIFIED Status: Chronic (14) Protein-calorie malnutrition, moderate Code(s): E44.0 - MODERATE PROTEIN-CALORIE MALNUTRITION Status: Chronic - Plan * .
[2018-10-17] MEDS ORDERED: Prevnar 13-Val Conj/PF 0.5 ML SYRINGE IM ONE (12:30)
--- NOTE | 2018-10-17 12:57 | MRI ---
MRI BRAIN NONCONTRAST: INDICATIONS: Left side weakness, CVA. COMPARISON: Reference made to an 10/16/[address] FINDINGS: Persistent patient motion degrades image quality. There is a recent small infarction about the later al aspect of the right thalamus and involving the posterior limb, right internal capsule. There is n o intracranial hemorrhage, mass effect, or midline shift. There is moderate chronic microvascular is chemic disease. Age related parenchymal volume loss with compensatory dilatation of the ventricular system is present. The degree of patient motion does partially obscure the skull base flow voids, th us limiting evaluation. IMPRESSION: Focal acute infarction centered about the lateral aspect of the right thalamus and the posterior limb of the right internal capsules. POS: LAN
--- NOTE | 2018-10-17 18:14 | CON ---
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 She was brought to the hospital for increasing weakness. She also has had falls in the past, one time having a contusion to the scalp requiring emergency room visit. On the day of admission - October 13, she fell down and was unable to get up. She also had problems with increasing abdominal discomfort. She denied any chest pain or shortness of breath. Since being in the hospital, she has also developed left hemiparesis, which is new from before. Brain MRI revealed a focal acute infarct centered about the lateral aspect of the right thalamus and the posterior limb of the right internal capsule. Also, yesterday, a CT angiogram of the chest revealed a distal left main pulmonary artery embolism. She had left pleural effusion and no significant stenosis of the internal carotid arteries. There was an intact osage of Baron without thrombus or aneurysm. Echocardiogram 2 days ago revealed ejection fraction of 60% to 65% with left ventricular hypertrophy, moderate left atrial enlargement, mild right atrial enlargement, mild mitral regurgitation, aortic valve leaflets were thickened, mild tricuspid regurgitation, and a moderate pericardial effusion without evidence of tamponade. PAST MEDICAL HISTORY: Hypertension, diabetes, hypercholesterolemia, hypothyroidism, dementia, chronic constipation, and physical deconditioning. PAST SURGICAL HISTORY: None. MEDICATIONS: Medications at home include; 1. Aspirin 81 daily. 2. Atorvastatin 10 q.h.s. 3. Carvedilol 12.5 b.i.d. 4. Pepcid 20 mg b.i.d. 5. Levothyroxine 175 mcg daily. 6. Lisinopril 10 mg daily. 7. Metformin 500 mg b.i.d. 8. Simvastatin 20 q.p.m. 9. MiraLAX. Since being admitted, she has been placed on Plavix 75 mg daily. ALLERGIES: NONE. SOCIAL HISTORY: She does not smoke or drink. PHYSICAL EXAMINATION: VITAL SIGNS: Blood pressure 136/64 and pulse 59. HEENT: PERRL. NECK: Supple. CHEST: Clear. CARDIAC: S1 and S2 normal without any S3, S4, or murmurs. ABDOMEN: Normal bowel sounds without tenderness. The abdomen is somewhat distended. No organomegaly. EXTREMITIES: Reveal no edema. NEUROLOGIC: The patient has left hemiparesis with left arm somewhat more affected than the left leg. She does not have any facial asymmetry. SKIN: Warm and dry. LABORATORY DATA: EKG revealed normal sinus rhythm with left axis deviation, low-voltage QRS, possible septal infarction, nonspecific T-wave changes. Hemoglobin 31.1, hematocrit 37.7, white count 6500, and platelets 195,000. D- dimer 2.72. Sodium 138, potassium 3.0, chloride 109, carbon dioxide 20, BUN 32, creatinine 1.09, and homocysteine 19.24. Cholesterol 335, triglycerides 111, HDL 62, and LDL 151. IMPRESSION: 1. 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 She has been placed on Plavix in addition to aspirin. 2. Moderate pericardial effusion. By my measurement, blood pressure was 119/70 with a paradox of 6. I doubt that she has tamponade. 3. Pulmonary embolism. 4. Hypertension. 5. Hypercholesterolemia, poorly controlled. 6. Diabetes. 7. Severe hypothyroidism, apparently noncompliant with her medication. PLAN: At the present time, I do not feel that Ms. Alonzo has cardiac tamponade. Consideration could be given to pericardial window and pericardial biopsy in the future by cardiovascular surgeons. The main concern is in regard to pulmonary embolism and recent stroke. If it is felt to be acceptable for full anticoagulation by Neurology, then that would be the appropriate treatment. However, if Neurology is concerned about her cerebral infarction and possibility of developing a hemorrhagic infarct, then the anticoagulation could not be given and consideration should be given to an inferior vena cava filter. I will consult Cardiovascular Surgery in regard to possibility of an IVC filter as well as possibility of pericardial window and pericardial biopsy. Job ID: [id number] MTDD
[2018-10-17] MEDS: Atorvastatin Calcium 40 MG TAB PO SCH (22:20)
--- NOTE | 2018-10-18 01:30 | CON ---
DATE OF CONSULTATION: 10/17/2018 NEUROLOGIC CONSULTATION CONSULTING PHYSICIAN: Hospitalist Services. IMPRESSION: 1. Right deep white matter infarct likely secondary to hypoperfusion from hypotension. 2. Frequent fall secondary to extensive microvascular disease resulting in secondary imbalance. PLAN: 1. Aspirin 81 mg daily. 2. Plavix 75 mg daily for the next 6 months. 3. Determine whether Vascular Surgery would go with vena cava filter or anticoagulation for a long-term management of the asymptomatic pulmonary embolus. HISTORY OF PRESENT ILLNESS: Ms. Alonzo is an 88-year-old woman, who came in with complaints of frequent falls. She was subsequently discovered to be severely constipated. In the midst of treatment of constipation, she had a bout of hypotension with her systolic pressures dropping into the 90s. She overnight developed left-sided weakness. Initial CT scan of the brain did not show any evidence of hemorrhage. Followup MRI of the brain showed an area of acute infarction as described above. Her degree of weakness is a bit better today compared to yesterday. PAST MEDICAL HISTORY: Hypertension. ALLERGIES: NONE. SOCIAL HISTORY: She is . She is living at home with her . No tobacco or alcohol use. FAMILY HISTORY: Noncontributory. REVIEW OF SYSTEMS: No complaint of headache, nausea, vomiting, vertigo, chest pain, or shortness of breath. PHYSICAL EXAMINATION: GENERAL: She is somewhat frail appearing elderly lady with protuberant abdomen. VITAL SIGNS: Pulse 62, respirations 16. HEENT: Pupils are equal and reactive. Conjunctivae are clear. Oropharynx is clear. NECK: No lymphadenopathy. EXTREMITIES: No cyanosis, clubbing, or edema. NEUROLOGIC: She was alert and cooperative. Her speech was fluent and clear. No facial asymmetry was appreciated. No sensory deficits were noted. Motor exam showed trace movement both proximally and distally in the upper and lower extremities. Her cerebellar testing did not reveal any evidence of dysmetria on the right side. Gait is not testable. DIAGNOSTIC STUDIES: EKG showed sinus rhythm. Imaging was reviewed. SUMMARY: An elderly lady with fairly dense left hemiparesis, which appears to be improving. I agree with current antiplatelet therapy unless anticoagulation is necessary. Job ID: [id number]
[2018-10-18] MEDS: Levothyroxine 175 MCG TAB PO SCH (06:50)
[2018-10-18] MEDS: Polyethylene Glycol 3350 17 GM Packet PO SCH (09:53)
[2018-10-18] MEDS: Famotidine 20 MG TAB PO SCH (09:53)
[2018-10-18] MEDS: Clopidogrel Bisulfate 75 MG TAB PO SCH (09:53)
[2018-10-18] MEDS: Sodium Chloride 0.9% 1,000 ML IV SCH (10:18)
[2018-10-18 11:37] VITALS: BP 162/83; TEMP 97.9
[2018-10-18] MEDS: HumaLOG 300 UNITS/3 ML VIAL SC PRN (12:01)
--- NOTE | 2018-10-18 14:29 | DIS ---
DATE OF ADMISSION: 10/16/2018 DATE OF DISCHARGE: 10/18/2018 ADDENDUM: This is an addendum to initial discharge summary of 10/16/2018, by Dr. Paul. DISCHARGE DIAGNOSES: 1. Constipation. 2. Failure to thrive. 3. Moderate protein-calorie malnutrition, chronic. 4. Left main pulmonary artery pulmonary embolism. 5. Acute ischemic cerebrovascular accident. 6. Physical deconditioning. 7. Essential hypertension. 8. Hypothyroidism. 9. Hyperlipidemia. CONSULTATION: Dr. Everett with Neurology. PROCEDURES: None. HISTORY OF PRESENT ILLNESS: Ms. Alonzo is an 88-year-old female, admitted initially on 10/13, for constipation symptoms. She improved and was ready for discharge on 10/16. She was subsequently discharged, but that afternoon before discharge, developed left-sided weakness. Her discharge was held, and she was converted to inpatient. Imaging revealed acute right MCA distribution stroke. There was some question with pericardial effusion whether she needed a pericardial window, and Cardiology saw her on 10/17. She was subsequently seen by Dr. Dunne, who recommended anticoagulation and no filter nor pericardial window at this time, and the patient's left-sided weakness continued to improve. She was accepted to inpatient rehab and was stable for discharge on 10/18/2018. DISCHARGE MEDICATIONS: Per previous discharge summary. New medications to add: Eliquis 10 mg p.o. b.i.d. for 7 days and 5 mg p.o. b.i.d. after that. DISCHARGE CONDITION: Stable. DISPOSITION: She will be discharged to [facility] for PT, OT, and ST. DISCHARGE ACTIVITY: As tolerated. DISCHARGE DIET: Heart-healthy diet recommended. FOLLOWUP APPOINTMENTS: 1. Primary care physician within a week. 2. Dr. Pack in 2 to [address] Carter as needed. Job ID: [id number]
[2018-10-18] MEDS ORDERED: Apixaban 5 MG TAB PO SCH (21:00)
--- NOTE | 2018-10-21 18:00 | EKG ---
Test Reason : WEAKNESS Blood Pressure : / mmHG Vent. Rate : 073 BPM Atrial Rate : 073 BPM P-R Int : 188 ms QRS Dur : 078 ms QT Int : 434 ms P-R-T Axes : 055 -42 081 degrees QTc Int : 478 ms Normal sinus rhythm Left axis deviation RSR' or QR pattern in V1 suggests right ventricular conduction delay Nonspecific T wave abnormality Prolonged QT Abnormal ECG Confirmed by LISA PEREZ, MASTER ([id number]), newspaper or periodical editor MARISEL NIXON ([id number]) on 10/21/2018 6:00:11 PM Referred By: Confirmed By:MASTER GONZALEZ MD
--- NOTE | 2018-10-21 18:02 | EKG ---
Test Reason : Blood Pressure : / mmHG Vent. Rate : 073 BPM Atrial Rate : 073 BPM P-R Int : 174 ms QRS Dur : 072 ms QT Int : 394 ms P-R-T Axes : 092 -35 117 degrees QTc Int : 434 ms Normal sinus rhythm Left axis deviation RSR' or QR pattern in V1 suggests right ventricular conduction delay Septal infarct , age undetermined T wave abnormality, consider anterolateral ischemia Abnormal ECG No significant change was found Confirmed by LISA PEREZ, MASTER ([id number]), photographic editor MARISEL NIXON ([id number]) on 10/21/2018 6:02:47 PM Referred By: Confirmed By:MASTER GONZALEZ MD
== END 2018-10-18 15:19 | DRG 64 ==
LOC: ERS 09:04 → INTOOBSV 14:08 → 2NO 14:08 → T4-B 10-15 11:45 → OBSVTOIN 10-16 15:20 → 2SE 10-16 16:56
PROVIDERS: ADMIT Internal Medicine; ATTEND Internal Medicine
PROC: 3E0234Z Introduction of Serum, Toxoid and Vaccine into Muscle, Percutaneous Approach (ICD-10-PCS; principal; 2018-10-17)
DX: I63.511 Cerebral infarction due to unspecified occlusion or stenosis of right middle cerebral artery (principal); I26.99 Other pulmonary embolism without acute cor pulmonale; N17.9 Acute kidney failure, unspecified; G81.94 Hemiplegia, unspecified affecting left nondominant side; I31.3 Pericardial effusion (noninflammatory); E44.0 Moderate protein-calorie malnutrition; Z68.1 Body mass index [BMI] 19.9 or less, adult; K59.01 Slow transit constipation; I10 Essential (primary) hypertension; E11.9 Type 2 diabetes mellitus without complications; Z79.84 Long term (current) use of oral hypoglycemic drugs; E78.5 Hyperlipidemia, unspecified; E03.9 Hypothyroidism, unspecified; Z91.81 History of falling; Z79.82 Long term (current) use of aspirin; G30.9 Alzheimer's disease, unspecified; F02.80 Dementia in other diseases classified elsewhere, unspecified severity, without behavioral disturbance, psychotic disturbance, mood disturbance, and anxiety; Z79.02 Long term (current) use of antithrombotics/antiplatelets; I34.0 Nonrheumatic mitral (valve) insufficiency; I36.1 Nonrheumatic tricuspid (valve) insufficiency; E78.00 Pure hypercholesterolemia, unspecified; Z91.14 Patient's other noncompliance with medication regimen; E86.0 Dehydration; Z66 Do not resuscitate; Z23 Encounter for immunization
CPT/HCPCS: 36415; 36416; 51701; 70450; 70496; 70498; 70551; 71045; 74018; 74177; 80048; 80053; 80061; 81003; 81015; 82553; 83090; 83630; 84443; 84484; 85025; 85379; 87045; 87046; 87077; 87324; 87449; 87899; 90471; 90662; 90670; 93005; 93306; 93970; 94760; G0008; G0009; G8978-GP-CK; G8978-GP-CN; G8979-GP-CI; G8979-GP-CM; G8987-GO-CJ; G8987-GO-CM; G8988-GO-CI; G8988-GO-CK; G8996-GN-CI; G8997-GN-CI; J0360; J1650

== ENCOUNTER 2018-10-23 14:41 | Outpatient (CLI) | payer MEDICARE, OTHER ==
--- NOTE | 2018-10-23 16:59 | CT ---
CT BRAIN NONCONTRAST: HISTORY: An 88-year-old female with generalized weakness and frequent falls. FINDINGS: There is no midline shift or any other mass effect. There is no evidence of acute intracranial hemor rhage, large cortical infarct, obstructive hydrocephalus, or extraaxial fluid collection. The calvar ium is intact. There is diffuse parenchymal volume loss. There are low attenuation areas in the whi te matter. These are nonspecific, but in a patient of this age, they are probably chronic ischemic w collin matter changes due to microvascular atherosclerosis. There is an approximately 1 cm lacunar inf arction at the junction between the right thalamus and the posterior limb of the right internal capsu le. IMPRESSION: 1) No acute intracranial findings. 2) Involutional changes and severe chronic ischemic white matter changes. 3) Late subacute lacunar infarction at the junction between the posterior limb of the right internal capsule and the right thalamus. nina [] POS: [facility]
--- NOTE | 2018-10-23 17:09 | RAD ---
TWO VIEW CHEST: INDICATIONS: Weakness. Frequent falls. FINDINGS: There is enlargement of the cardiac silhouette with adjacent left basilar density. Mild right effusi on is seen. There is thoracic kyphosis. Degenerative changes of the osseous structures and osseous demineralization noted. IMPRESSION: 1. Bibasilar densities, left greater than right, indicating pleural fluid with adjacent atelectasis and/or pneumonia. 2. Congestive heart failure. Recommended continued imaging followup. POS: [facility]
== END 2018-10-23 14:42 | disposition home or self-care (01) ==
LOC: CT 14:41
PROVIDERS: ATTEND Physical Medicine & Rehabilitation
DX: R53.1 Weakness (principal); I63.81 Other cerebral infarction due to occlusion or stenosis of small artery; I50.9 Heart failure, unspecified; J98.4 Other disorders of lung
CPT/HCPCS: 70450; 71046

== ENCOUNTER 2018-11-14 12:54 | Inpatient (IN) | payer MEDICARE, OTHER ==
[2018-11-14 13:34] LABS: #Lymphocytes 2.7 thou/uL (1.20-3.40); #Monocytes 0.4 thou/uL (0.11-0.59); #Neutrophils 2.6 thou/uL (1.40-6.50); %Basophils 0.2 % (0.0-1.0); %Eosinophils 0.6 % (0.0-10.0); %Lymphocytes 46.9 % (21.0-51.0); %Monocytes 7.4 % (0.0-10.0); %Neutrophils 44.9 % (42.0-75.0); Hemoglobin 6.4 g/dL (12.0-16.0); Mean Corpuscular Hemoglobin 31.8 pg (27.0-31.0); Mean Corpuscular Volume 96.4 fL (78.0-98.0); Mean Platelet Volume 6.4 fL (7.4-10.4); Platelet Count 242 thou/uL (130-400); RBC Distribution Width 14.6 % (11.5-14.5); Red Blood Cell (RBC) Count 2.02 mill/uL (4.20-5.40); White Blood Cell (WBC) Count 5.7 thou/uL (4.8-10.8)
[2018-11-14 13:58] LABS: ALT (SGPT) 11 U/L (8-55); AST (SGOT) 12 U/L (5-34); Albumin 2.2 g/dL (3.4-4.8); Alkaline Phosphatase 53 U/L (40-150); Anion Gap 9 mmol/L (10-20); BUN (Urea Nitrogen) 19 mg/dL (9.8-20.1); Bilirubin, Total 0.5 mg/dL (0.2-1.2); Calc. Creatinine Clearance 0 mL/min (70-130); Calcium 7.1 mg/dL (7.8-10.44); Carbon Dioxide 25 mmol/L (23-31); Chloride 109 mmol/L (98-107); Estimated GFR-MDRD 80; Globulin 2.1 g/dL (2.4-3.5); Glucose 180 mg/dL (83-110); Potassium 3.3 mmol/L (3.5-5.1); Protein, Total 4.3 g/dL (6.0-8.3); Sodium 140 mmol/L (136-145)
--- NOTE | 2018-11-14 14:27 | RAD ---
PORTABLE CHEST 1 VIEW: Date: 11/14/18 Time: 1337 hours HISTORY: Lethargy, anemia, low hematocrit. FINDINGS/IMPRESSION: Comparison made with exam of 10/23/18. The heart is enlarged. There are bilateral pleural effusions with adjacent opacities. There is mild p ulmonary vascular congestion. No pneumothoraces seen. POS: [facility]
[2018-11-14 16:03] LABS: Bilirubin Negative (Negative); Blood, Urine Negative (Negative); Glucose, Urine (Dipstick) Negative (Negative); Leukocyte Moderate (Negative); Nitrite Positive (Negative); Protein, Urine (Dipstick) Negative (Neg-Trace)
[2018-11-14 16:05] LABS: Clarity CLEAR (Clear)
[2018-11-14 16:09] LABS: Bacteria/HPF 3+ HPF (None Seen); Hyaline Casts/LPF NONE SEEN LPF (0-3 Hyaline); RBC/HPF None Seen HPF (0-3); Squamous Epithelial 0-3 HPF (0-3)
[2018-11-14] MEDS ORDERED: cefTRIAXone\\ROCEPHIN 1 GM VIAL ONE (17:27)
[2018-11-14] MEDS ORDERED: Zolpidem Tartrate 5 MG TAB PO PRN (19:59)
[2018-11-14] MEDS ORDERED: Guaifenesin DM 100-10/5 ML UDCUP PO PRN (19:59)
[2018-11-14] MEDS ORDERED: Dextrose 5% in Water 1,000 ML IV PRN (19:59)
[2018-11-14] MEDS ORDERED: Acetaminophen 650 MG Suppository PR PRN (19:59)
[2018-11-14] MEDS ORDERED: HumaLOG 300 UNITS/3 ML VIAL SC PRN (19:59)
[2018-11-14] MEDS ORDERED: Senokot S 8.6-50 MG TAB PO PRN (19:59)
[2018-11-14] MEDS ORDERED: Ondansetron ODT 4 MG TAB PO PRN (19:59)
[2018-11-14] MEDS ORDERED: Dextrose 50% Abboject 50 ML SYRINGE SLOW IVP PRN (19:59)
[2018-11-14] MEDS ORDERED: Ondansetron PF 4 MG/2 ML Vial IVP PRN (19:59)
[2018-11-14] MEDS ORDERED: Acetaminophen 325 MG TAB PO PRN (19:59)
[2018-11-14] MEDS ORDERED: Bisacodyl 5 MG TAB PO PRN (19:59)
[2018-11-14] MEDS ORDERED: Pantoprazole 40 MG VIAL ONE (20:30)
[2018-11-14 21:00] VITALS: BMI 21.6
[2018-11-14] MEDS ORDERED: Polyethylene Glycol 3350 17 GM Packet PO SCH (21:00)
[2018-11-14] MEDS: Carvedilol 25 MG TAB PO SCH (21:22)
[2018-11-14] MEDS: Famotidine 20 MG TAB PO SCH (21:22)
[2018-11-14] MEDS: Atorvastatin Calcium 10 MG TAB PO SCH (21:22)
[2018-11-14 21:39] LABS: #Eosinphils 0.1 thou/uL (0.0-0.7); #Lymphocytes 2.6 thou/uL (1.20-3.40); #Monocytes 0.4 thou/uL (0.11-0.59); #Neutrophils 2.6 thou/uL (1.40-6.50); %Basophils 0.1 % (0.0-1.0); %Lymphocytes 45.4 % (21.0-51.0); %Monocytes 6.9 % (0.0-10.0); %Neutrophils 46.6 % (42.0-75.0); Hemoglobin 8.5 g/dL (12.0-16.0); Mean Corpuscular HGB CONC 33.8 g/dL (32.0-36.0); Mean Corpuscular Hemoglobin 31.9 pg (27.0-31.0); Mean Corpuscular Volume 94.6 fL (78.0-98.0); Mean Platelet Volume 6.6 fL (7.4-10.4); Platelet Count 250 thou/uL (130-400); RBC Distribution Width 14.3 % (11.5-14.5); Red Blood Cell (RBC) Count 2.66 mill/uL (4.20-5.40); White Blood Cell (WBC) Count 5.6 thou/uL (4.8-10.8)
[2018-11-14 21:57] LABS: Iron Binding Capacity, Total 124 mcg/dL (265-497)
[2018-11-14 21:58] LABS: Iron 32 ug/dL (50-170)
[2018-11-15 04:54] LABS: Folate (Folic Acid) 5.1 ng/mL (7.0-31.4)
--- NOTE | 2018-11-15 05:25 | HP ---
CHIEF COMPLAINT: Lethargy. HISTORY OF PRESENT ILLNESS: This is an 88-year-old female with past medical history of hypertension, diabetes mellitus type 2, dyslipidemia, and hypothyroidism, presenting with lethargy. Per report, the [facility] because the patient was very lethargic and lab work was done and lab work showed the patient was anemic with hemoglobin of 7.2. Per records, the patient was recently in the hospital and was admitted for generalized weakness, elevated troponins, and frequent falls. During the hospital stay, PT/OT was ordered for the patient and the patient was treated supportively. At this time, the patient did endorses some weakness but denies any fever, chills, chest pain, abdominal pain, palpitations, dysuria, hematuria, constipation, or diarrhea. REVIEW OF SYSTEMS: Endorses generalized weakness, otherwise, all systems were reviewed and are negative. PAST MEDICAL HISTORY: Hypertension, diabetes mellitus type 2, hyperlipidemia, hypothyroidism, dementia, physical deconditioning, and chronic constipation. FAMILY HISTORY: Reviewed and noncontributory to this visit. PAST SURGICAL HISTORY: The patient is not able to provide past surgical history. PAST PSYCHIATRIC HISTORY: Reviewed and negative. ALLERGIES: NO KNOWN DRUG ALLERGIES. CURRENT MEDICATIONS: The patient takes; 1. Aspirin 81 mg. 2. Hydrochlorothiazide 12.5 mg. 3. Prinzide 20/12.5. 4. Metformin 500 mg b.i.d. 5. Zocor 20 mg. 6. Synthroid 100 mcg. 7. Vitamin D3 of 400 units daily. 8. Calcium with vitamin D one tablet p.o. daily. SOCIAL HISTORY: The patient is . [facility] from [facility]. Denies tobacco use. Denies alcohol or illicit drug use. PHYSICAL EXAMINATION: VITAL SIGNS: Temperature is 97.5, pulse of 80, blood pressure of 169/74, respiratory rate of 16, and oxygen saturation of 99. GENERAL: The patient is alert, awake, and oriented x2. The patient follows simple commands, have poor cognitive function. The patient have temporal wasting. The patient is cachectic and frail. HEENT: Normocephalic, atraumatic. Pupils are equally round and reactive to light. Extraocular movements are intact. No scleral icterus. Mouth, mucous membranes are dry. NECK: Supple. No JVD. Trachea is midline. Full range of motion. LUNGS: Clear to auscultation bilaterally. No wheezing, no rales, no rhonchi appreciated. CARDIAC: Positive S1 and S2. Regular rate and rhythm. No murmurs, no gallops, no rubs appreciated. ABDOMEN: Positive bowel sounds. No tenderness. No peritoneal signs. No guarding. No rigidity. BACK: The patient to have a stage II decubitus ulcer at the coccyx. EXTREMITIES: The patient has good strength at the right upper extremity. Left upper extremity, the patient is not able to move all rays. The upper extremities, the patient has good pulses bilaterally. At the lower extremities, the patient has bilateral weakness and there is trace edema at the lower extremities. SKIN: Dry and warm. No skin rash. NEURO: The patient is alert and oriented x2. The patient has flat affect. Cranial nerves II through XII grossly intact. No focal neurologic deficits noted. LABORATORY DATA: WBC 5.7, hemoglobin is 6.4, hematocrit is 19.4, RDW is 14.6, and platelet count is 242. Sodium is 140, potassium is 3.3, chloride is 109, anion gap of 9, creatinine is 0.69, glucose is 180, calcium is 7.1. UA positive for nitrite and moderate leukocyte esterases. DIAGNOSTIC STUDIES: Chest x-ray showed enlarged heart. There is bilateral pleural effusion with adjacent opacities. There is mild pulmonary vascular congestion. No pneumothorax is seen. ASSESSMENT AND PLAN: This is an 88-year-old female is being admitted for; 1. Symptomatic anemia likely due to anemia of chronic inflammation versus iron-deficiency anemia versus anemia of acute blood loss. At this point, the root cause of patient's anemia is unknown, however, we have ordered anemia panel, we will follow up on the results. We have ordered for stool occult blood. We will follow up on the results. We will transfuse the patient with 2 PRBCs. 2. Encephalopathy, acute, most likely due to urinary tract infection. The patient has been started on antibiotics. We will continue the patient on this antibiotics. 3. Bilateral pleural effusions with some opacities. The patient is on IV antibiotics. The patient does not have any signs of overt pneumonia at this time. 4. Generalized weakness, multifactorial. The patient has decreased muscle medications, decreased appetite, and decreased p.o. intake. At this point, we will encourage the patient to eat and the patient will benefit from physical therapy after the patient is stable and the patient has been medically optimized. 5. Hypothyroidism. We will continue the patient on her home medications. 6. Essential hypertension. We will monitor the patient's blood pressure closely and we will treat the patient's hypertension accordingly. 7. Hyperlipidemia. We will continue the patient on current management. 8. Diabetes mellitus type 2. We will continue the patient on insulin sliding scale per protocol. 9. Deep venous thrombosis and gastrointestinal prophylaxis. Job ID: [id number]
[2018-11-15] MEDS ORDERED: Levothyroxine 175 MCG TAB PO SCH (06:00)
[2018-11-15] MEDS ORDERED: Milk Of Magnesia 30 ML UDCUP PO PRN (07:28)
[2018-11-15] MEDS ORDERED: Senokot 8.6 MG TAB PO PRN ×2 (07:28→07:53)
[2018-11-15] MEDS ORDERED: Non-Formulary Item 1 EACH (Diphenhydramine Hcl [Diphenhydramine Hcl] 25 MG) PO PRN (07:28)
[2018-11-15] MEDS ORDERED: guaiFENesin 100 MG/5 ML UDCUP PO PRN (07:28)
[2018-11-15] MEDS ORDERED: Ondansetron ODT 4 MG TAB PO PRN (07:28)
[2018-11-15] MEDS ORDERED: Bisacodyl 10 MG SUPP PR PRN (07:28)
[2018-11-15] MEDS ORDERED: cloNIDine 0.1 MG TAB PO PRN (07:28)
[2018-11-15] MEDS ORDERED: diphenhydrAMINE 25 MG CAP PO PRN (07:54)
[2018-11-15] MEDS: Apixaban 5 MG TAB PO SCH ×2 (08:25→19:58)
[2018-11-15] MEDS: Multivitamin W/ Minerals 1 TAB PO SCH (08:25)
[2018-11-15] MEDS: Ferrous Sulfate 325 MG TAB PO SCH (08:25)
[2018-11-15] MEDS: Calcium Carbonate 500 MG ChewTAB PO SCH ×2 (08:25→16:51)
[2018-11-15] MEDS: metFORMIN 500 MG TAB PO SCH ×2 (08:25→16:51)
[2018-11-15] MEDS: Carvedilol 25 MG TAB PO SCH ×2 (08:26→19:58)
[2018-11-15] MEDS: Calcium Carbonate + Vit D 1 TAB PO SCH (08:26)
[2018-11-15] MEDS: Cholecalciferol (Vitamin D3) 400 UNITS TAB PO SCH (08:26)
[2018-11-15] MEDS: Famotidine 20 MG TAB PO SCH ×2 (08:27→19:58)
[2018-11-15] MEDS: Lisinopril 20 MG TAB PO SCH (08:27)
[2018-11-15] MEDS ORDERED: Folic Acid 1 MG TAB PO SCH (09:00)
[2018-11-15] MEDS ORDERED: Non-Formulary Item 1 EACH (Levothyroxine Sodium [Levothyroxine Sodium] 200 MCG) PO SCH (09:00)
[2018-11-15] MEDS ORDERED: Non-Formulary Item 1 EACH (Multivitamin With Minerals [Multiple Vitamin] 1 TABLET) PO SCH (09:00)
[2018-11-15 09:09] LABS: #Lymphocytes 2.4 thou/uL (1.20-3.40); #Monocytes 0.3 thou/uL (0.11-0.59); #Neutrophils 2.5 thou/uL (1.40-6.50); %Basophils 0.3 % (0.0-1.0); %Eosinophils 0.9 % (0.0-10.0); %Lymphocytes 44.9 % (21.0-51.0); %Monocytes 6.1 % (0.0-10.0); %Neutrophils 47.8 % (42.0-75.0); Hemoglobin 9.8 g/dL (12.0-16.0); Mean Corpuscular HGB CONC 32.5 g/dL (32.0-36.0); Mean Corpuscular Hemoglobin 29.4 pg (27.0-31.0); Mean Corpuscular Volume 90.5 fL (78.0-98.0); Mean Platelet Volume 6.6 fL (7.4-10.4); Platelet Count 271 thou/uL (130-400); RBC Distribution Width 16.1 % (11.5-14.5); Red Blood Cell (RBC) Count 3.31 mill/uL (4.20-5.40); White Blood Cell (WBC) Count 5.2 thou/uL (4.8-10.8)
[2018-11-15 09:29] LABS: Anion Gap 9 mmol/L (10-20); BUN (Urea Nitrogen) 17 mg/dL (9.8-20.1); Calc. Creatinine Clearance 66 mL/min (70-130); Calcium 7.3 mg/dL (7.8-10.44); Carbon Dioxide 27 mmol/L (23-31); Chloride 109 mmol/L (98-107); Estimated GFR-MDRD Greater than 90; Glucose 125 mg/dL (83-110); Potassium 3.1 mmol/L (3.5-5.1); Sodium 142 mmol/L (136-145)
--- NOTE | 2018-11-15 10:01 | PDOC.PN ---
- Subjective Encounter Start Date: 11/15/18 Encounter Start Time: 08:20 -: old records requested/rev Patient seen and examined. No overnight events pt is not talking, awake, very cachectic - Objective Resuscitation Status - Order Detail: 11/14/18 20:41 Resuscitation Status Routine Resuscitation Status: FULL: Full Resuscitation MAR Reviewed: Yes Vital Signs & Weight: Vital Signs (12 hours) Temp Pulse Pulse Resp BP BP BP 11/15/18 08:22 98.2 F 64 16 150/70 H 11/15/18 08:00 11/15/18 03:49 98.1 F 68 16 151/76 H 11/15/18 00:44 97.5 F L 70 26 H 153/77 H 11/14/18 23:40 98.1 F 72 16 151/75 H 11/14/18 22:10 97.6 F 72 16 158/75 H Pulse Ox 11/15/18 08:22 99 11/15/18 08:00 99 11/15/18 03:49 98 11/15/18 00:44 98 11/14/18 23:40 98 11/14/18 22:10 94 L Weight Weight 142 lb 1 oz I&O: 11/14/18 11/15/18 11/16/18 06:59 06:59 06:59 Intake Total 350 Balance 350 Result Diagrams: 11/15/18 08:23 11/15/18 08:23 Additional Labs: Accuchecks 11/15/18 11/14/18 05:07 21:13 POC Glucose 140 H 151 H Phys Exam - Physical Examination Constitutional: NAD HEENT: PERRLA, sclera anicteric dry MM Neck: no JVD, supple Respiratory: no wheezing, no rales, no rhonchi Cardiovascular: RRR, no significant murmur, no rub Gastrointestinal: soft, non-tender, no distention, positive bowel sounds Musculoskeletal: no edema, pulses present Neurological: moves all 4 limbs Lymphatic: no nodes Psychiatric: normal affect Skin: no rash, normal turgor Dx/Plan (1) Symptomatic anemia Code(s): D64.9 - ANEMIA, UNSPECIFIED Status: Acute (2) Folate deficiency Code(s): E53.8 - DEFICIENCY OF OTHER SPECIFIED B GROUP VITAMINS Status: Acute (3) Hypokalemia Code(s): E87.6 - HYPOKALEMIA Status: Acute (4) UTI (urinary tract infection) Status: Acute (5) Weakness generalized Code(s): R53.1 - WEAKNESS Status: Acute (6) Chronic anticoagulation Code(s): Z79.01 - [facility] (CURRENT) USE OF ANTICOAGULANTS Status: Chronic (7) Dementia Code(s): F03.90 - UNSPECIFIED DEMENTIA WITHOUT BEHAVIORAL DISTURBANCE Status: Chronic (8) Diabetes type 2, controlled Code(s): E11.9 - TYPE 2 DIABETES MELLITUS WITHOUT COMPLICATIONS Status: Chronic (9) Dyslipidemia Code(s): E78.5 - HYPERLIPIDEMIA, UNSPECIFIED Status: Chronic (10) History of pulmonary embolism Code(s): Z86.711 - PERSONAL HISTORY OF PULMONARY EMBOLISM Status: Chronic (11) Hypertension Code(s): I10 - ESSENTIAL (PRIMARY) HYPERTENSION Status: Chronic (12) Hypothyroidism Code(s): E03.9 - HYPOTHYROIDISM, UNSPECIFIED Status: Chronic (13) Protein-calorie malnutrition, moderate Code(s): E44.0 - MODERATE PROTEIN-CALORIE MALNUTRITION Status: Chronic (14) Recurrent falls Code(s): R29.6 - REPEATED FALLS Status: Chronic - Plan cont current plan of care, continue antibiotics * replace potassium * check mag and phos level * continue rocephin * follow culture * nutritional support * add folic acid and vitamin B12, ferrous sulfate, MVI * medication reviewed as below * symptomatic treatment. * home medication reconciled * prognosis is poor * speech evaluation * palliative care consult Review of Systems - Review of Systems Other: unable to review due to baseline cognitive deficit - Medications/Allergies Allergies/Adverse Reactions: Allergies Allergy/AdvReac Type Severity Reaction Status Date / Time No Known Allergies Allergy Verified 11/14/18 21:01 Medications: Current Medications Acetaminophen (Tylenol) 650 mg PO Q4H PRN PRN Reason: Headache/Fever/Mild Pain (1-3) Apixaban (Eliquis) 5 mg PO BID [facility] Last Admin: 11/15/18 08:25 Dose: 5 mg Atorvastatin Calcium (Lipitor) 10 mg PO HS [facility] Last Admin: 11/14/18 21:22 Dose: Not Given Bisacodyl (Dulcolax) 10 mg PO DAILYPRN PRN PRN Reason: Constipation Bisacodyl (Dulcolax) 10 mg [place] DAILY PRN PRN Reason: Constipation Calcium Carbonate (Tums) 1,000 mg PO BID[facility] Last Admin: 11/15/18 08:25 Dose: 1,000 mg Calcium/Vitamin D (Caltrate 600 + Vit D) 1 tab PO DAILY [facility] Last Admin: 11/15/18 08:26 Dose: 1 tab Carvedilol (Coreg) 12.5 mg PO BID [facility] Last Admin: 11/15/18 08:26 Dose: 12.5 mg Cholecalciferol (Vitamin D) 400 units PO DAILY [facility] Last Admin: 11/15/18 08:26 Dose: 400 units Clonidine (Catapres) 0.1 mg PO Q6H PRN PRN Reason: Hypertension Dextrose/Water (Dextrose 50%) 25 gm SLOW IVP PRN PRN PRN Reason: Hypoglycemia Diphenhydramine HCl (Benadryl) 25 mg PO Q6H PRN PRN Reason: Itching & Insomnia Famotidine (Pepcid) 20 mg PO BID [facility] Last Admin: 11/15/18 08:27 Dose: 20 mg Ferrous Sulfate (Feosol) 325 mg PO QAM-[facility] Last Admin: 11/15/18 08:25 Dose: 325 mg Folic Acid (Folvite) 1 mg PO DAILY [facility] Last Admin: 11/15/18 08:25 Dose: 1 mg Glucagon (Glucagon) 1 mg IM PRN PRN PRN Reason: Hypoglycemia Guaifenesin (Robitussin) 2,000 mg PO Q4H PRN PRN Reason: Cough Guaifenesin/Dextromethorphan (Robitussin Dm) 15 ml PO Q4H PRN PRN Reason: Cough Dextrose/Water (D5w) 1,000 mls @ 0 mls/hr IV .Q0M PRN PRN Reason: Hypoglycemia Ceftriaxone Sodium 1 gm/ (Sodium Chloride) 100 mls @ 200 mls/hr IVPB Q24HR [facility] Insulin Human Lispro (Humalog) 0 units SC .MILD SLIDING SCALE PRN PRN Reason: Mild Correctional Scale Insulin Human Lispro (Humalog) 0 units SC .BEDTIME SLIDING SC PRN PRN Reason: Bedtime Correctional Scale Iron/Minerals/Multivitamins (Theragran M) 1 tab PO DAILY [facility] Last Admin: 11/15/18 08:25 Dose: 1 tab Lactulose (Lactulose) 30 gm PO TID PRN PRN Reason: Constipation Levothyroxine Sodium (Synthroid) 200 mcg PO 0600 [facility] Lisinopril (Zestril) 20 mg PO DAILY [facility] Last Admin: 11/15/18 08:27 Dose: 20 mg Magnesium Hydroxide (Milk Of Magnesium) 30 ml PO DAILY PRN PRN Reason: Constipation Metformin HCl (Glucophage) 500 mg PO BID-[facility] Last Admin: 11/15/18 08:25 Dose: 500 mg Miscellaneous Medication (Pharmacy To Dose) 1 each IVPB PRN PRN PRN Reason: Pharmacy to dose Ondansetron HCl (Zofran) 4 mg IVP Q6H PRN PRN Reason: Nausea/Vomiting Ondansetron HCl (Zofran Odt) 4 mg PO Q6H PRN PRN Reason: Nausea/Vomiting Polyethylene Glycol (Miralax) 17 gm PO HS [facility] Potassium Chloride (Klor-Con) 20 meq PO DAILY [facility] Last Admin: 11/15/18 08:25 Dose: 20 meq Senna (Senokot) 1 tab PO QAM PRN PRN Reason: Constipation Senna/Docusate Sodium (Senokot S) 2 tab PO BIDPRN PRN PRN Reason: Constipation Sodium Chloride (Flush - Normal Saline) 10 ml IVF Q12HR PRN PRN Reason: Saline Flush Sodium Chloride (Flush - Normal Saline) 10 ml IVF PRN PRN PRN Reason: Saline Flush Zolpidem Tartrate (Ambien) 5 mg PO HSPRN PRN PRN Reason: Insomnia
[2018-11-15 10:22] LABS: Magnesium 1.7 mg/dL (1.6-2.6); Phosphorus 2.3 mg/dL (2.3-4.7)
[2018-11-15] MEDS: cefTRIAXone\\ROCEPHIN 1 GM in Sodium Chloride 0.9% 100 ML IVPB SCH (17:37)
[2018-11-15] MEDS: Folic Acid 1 MG TAB PO SCH (19:58)
[2018-11-15] MEDS: Atorvastatin Calcium 10 MG TAB PO SCH (19:58)
[2018-11-15] MEDS: Polyethylene Glycol 3350 17 GM Packet PO SCH (19:59)
[2018-11-15] MEDS ORDERED: Polyethylene Glycol 3350 17 GM Packet PO SCH (21:00)
--- NOTE | 2018-11-15 23:12 | CON ---
DATE OF CONSULTATION: 11/15/2018 REASON FOR CONSULTATION: Anemia. CONSULTING PHYSICIAN: Ellie Paul MD HISTORY OF PRESENT ILLNESS: The patient is an 88-year-old female with past medical history of hypertension, diabetes, hyperlipidemia, hypothyroidism, progressive dementia, chronic constipation, and more recently cerebrovascular accident, and sacral decubitus ulceration, presenting with anemia. Upon review of the patient's chart, she was admitted to the hospital in September 2018 due to increased weakness and fall sustained at home which prompted further workup while she was here in the hospital. When she was discharged, she was ultimately discharged to rehab facility for physical rehabilitation and strengthening given her debilitated status. Per family, they state that while in the rehab facility, she did not make the expected recovery given her debilitated status and recent stroke, and while her appetite seemed to improve, her weakness, somnolence, and lethargy seem to worsen or were stable when compared to discharge. While she was staying in the rehab facility, she also complained of increased back pain centered around the sacral decubitus ulceration that had formed as well as bilateral lower extremity pain. However, the patient's family also noticed that she had been having increased abdominal distention over the last 2 to 3 weeks without any associated abdominal pain with this. While in the rehab facility, she was having frequent bowel movements that were semi-solid to liquid in consistency, despite her history of chronic constipation and hospitalization in September for that as one of the problems during that hospitalization. However, with this increased weakness, somnolence, and lethargy, she was noted to have a decreased H and H when compared to discharge albeit minimally so and had a downtrending H and H during the wider course of the last hospitalization. At the current time, per patient's family and per chart review, the patient has not been exhibiting any episodes of GI bleeding including hematemesis, melena, or hematochezia. She also does not endorse any abdominal pain throughout this time as well. Per family and chart review, they deny any episodes of nausea, vomiting, fevers, chills, abdominal pain, GI bleeding, dysphagia, or constipation. REVIEW OF SYSTEMS: A 10-category review of systems was obtained with all responses negative except for the pertinent positives as listed in the HPI. PAST MEDICAL HISTORY: As per HPI. PAST SURGICAL HISTORY: Unknown. FAMILY HISTORY: The family denies any GI malignancies. SOCIAL HISTORY: Denies any tobacco, alcohol, or illicit drug use. OUTPATIENT MEDICATIONS: Reviewed. ALLERGIES: NO KNOWN DRUG ALLERGIES. PHYSICAL EXAMINATION: VITAL SIGNS: Temperature 98.2, pulse 64, blood pressure 150/70, respiratory rate 16, saturating 99% on 2 L nasal cannula. GENERAL: The patient was lying in bed, in no acute distress. Alert, but not oriented. She was able to respond with very simple one-word answers, but could not contribute any meaningful data to the interview. HEENT: Normocephalic, atraumatic. NECK: Supple. No JVD or scleral icterus noted. CARDIOVASCULAR: Regular rate and rhythm with no discernible murmurs, gallops, or rubs. RESPIRATORY: Clear to auscultation bilaterally with no discernible wheezes or rales. ABDOMEN: Normoactive bowel sounds. Soft. Mild abdominal distention that was tympanic to percussion, but possible dullness to percussion along the abdominal flanks concerning for shifting dullness (could not maneuver the patient adequately to further evaluate this), mild tenderness to palpation in the midepigastric region. EXTREMITIES: No cyanosis, clubbing, or edema. LABORATORY DATA: CBC with a white blood cell count of 5.2, hemoglobin 9.8, hematocrit 30, platelets 271. Chemistry with a sodium of 142, potassium 3.1, chloride 109, CO2 of 27, BUN 17, creatinine 0.6, glucose 125, AST 12, ALT 11, alkaline phosphatase 53, total bilirubin 0.5, albumin 2.2. Serum iron 32, TIBC 124, MCV 94.6, RDW 14.3, B12 of 309, folate 5.1. Urinalysis was consistent with urinary tract infection. IMAGING DATA: Chest x-ray obtained on November 14, 2018, showed mild cardiomegaly with bilateral pleural effusions with adjacent opacities consistent with mild pulmonary vascular congestion. No pneumothoraces seen. ASSESSMENT AND PLAN: The patient is an 88-year-old female with past medical history of hypertension, diabetes, hyperlipidemia, hypothyroidism, progressive dementia, recent stroke with mild left-sided hemiparesis, chronic constipation, now presenting with continued lethargy, somnolence, and decreased H and H consistent with symptomatic anemia. Symptomatic anemia. 1. The patient is presenting with multiple hospitalizations within the last 1 to 2 months. The first one initially being because of increased weakness and sustained falls. She did also sustain a stroke during the last hospitalization and was ultimately discharged to rehab facility for physical rehabilitation for left hemiparesis. However, while in the rehab facility, it seems that while her appetite may have improved, her lethargy and somnolence did not as well as decreased physical activity despite physical therapy. Upon readmission to [facility] for this hospitalization, she was noted to have a decreased H and H when compared to previous. She responded well to the infusion of 2 units of PRBCs, but upon further characterization of her anemia, it appears more consistent with anemia of chronic disease given her normal MCV, normal RDW, mildly low iron, and significantly low TIBC. She does also have a low folate, which could contribute to her anemia at the current point in time; however, a nutritional origin of her anemia could also be present as well, especially with increased abdominal distention concerning for ascites with hypoalbuminemia. Recommendations: 1. We will continue to trend H and H and transfuse as necessary to maintain H and H of 7/. 2. We will continue to monitor for signs of GI bleeding. 3. We will hold off on endoscopic evaluation for now given lack of evidence for iron deficiency anemia/GI blood loss. 4. The family is to confer with each other about any additional invasive therapies/diagnostic procedures. Moderate severe protein calorie malnutrition. 1. The patient was recently discharged to rehab facility, and while the patient's family endorses that her appetite did improve while at the facility, she does exhibit increased abdominal distention and possible shifting dullness on physical examination today. Upon looking at her labs, she does have a significant hypoalbuminemia of 2.2, which when coupled with her abdominal distention is concerning for ascites formation due to malnutrition. At this point, she does not exhibit any symptoms of dysphagia per family, but with decreased p.o. intake, it would definitely affect her nutritional status. However, if the patient does indeed have ascites, then placing a PEG tube through this ascites would only place her at increased risk of infection and the patient's family is conferring about the necessity of any further invasive procedures at this time. Recommendations: 1. Would consult Nutrition Services and try to optimize her nutritional status as much as humanly possible. 2. I will order an abdominal ultrasound to evaluate for possible ascites formation in light of hypoalbuminemia. We will continue to follow. Please call with any questions. Job ID: [id number]
[2018-11-16] MEDS: Levothyroxine Sodium 100 MCG TAB PO SCH (04:17)
[2018-11-16] MEDS: Calcium Carbonate 500 MG ChewTAB PO SCH ×2 (07:34→16:24)
[2018-11-16] MEDS: Apixaban 5 MG TAB PO SCH ×2 (07:34→19:33)
[2018-11-16] MEDS: Lisinopril 20 MG TAB PO SCH (07:35)
[2018-11-16] MEDS: Folic Acid 1 MG TAB PO SCH ×2 (07:35→19:32)
[2018-11-16] MEDS: metFORMIN 500 MG TAB PO SCH ×2 (07:35→16:24)
[2018-11-16] MEDS: Carvedilol 25 MG TAB PO SCH ×2 (07:35→19:33)
[2018-11-16] MEDS: Multivitamin W/ Minerals 1 TAB PO SCH (07:36)
[2018-11-16] MEDS: Cyanocobalamin (Vitamin B-12) 1,000 MCG TAB PO SCH (07:36)
[2018-11-16] MEDS: Ferrous Sulfate 325 MG TAB PO SCH (07:36)
[2018-11-16] MEDS: Calcium Carbonate + Vit D 1 TAB PO SCH (07:36)
[2018-11-16] MEDS: Famotidine 20 MG TAB PO SCH ×2 (07:36→19:32)
--- NOTE | 2018-11-16 08:30 | ULT ---
SONOGRAM ABDOMEN COMPLETE: HISTORY: Abdominal pain. Abnormal liver function tests. Hypoalbuminemia. FINDINGS: Shadowing echogenic stone is present within the gallbladder lumen. No gallbladder wall thickening or pericholecystic fluid. Common duct is 0.6 cm. Liver heterogeneous without focal mass or intrahepat ic biliary dilatation. A small amount of free fluid throughout the abdomen. A small amount of right pleural fluid. The spleen, kidneys, and visualized portions of the abdominal aorta, IVC, and pancre as have a normal sonographic appearance. IMPRESSION: 1. Cholelithiasis. No evidence of acute biliary obstruction. 2. A small amount of ascites and right pleural fluid. POS: [facility]
[2018-11-16 10:40] LABS: #Lymphocytes 2.7 thou/uL (1.20-3.40); #Monocytes 0.3 thou/uL (0.11-0.59); #Neutrophils 2.4 thou/uL (1.40-6.50); %Basophils 0.3 % (0.0-1.0); %Eosinophils 0.7 % (0.0-10.0); %Lymphocytes 49.3 % (21.0-51.0); %Monocytes 5.9 % (0.0-10.0); %Neutrophils 43.7 % (42.0-75.0); Hemoglobin 9.9 g/dL (12.0-16.0); Mean Corpuscular HGB CONC 33.4 g/dL (32.0-36.0); Mean Corpuscular Hemoglobin 30.2 pg (27.0-31.0); Mean Corpuscular Volume 90.4 fL (78.0-98.0); Mean Platelet Volume 6.5 fL (7.4-10.4); Platelet Count 296 thou/uL (130-400); RBC Distribution Width 16.1 % (11.5-14.5); Red Blood Cell (RBC) Count 3.27 mill/uL (4.20-5.40); White Blood Cell (WBC) Count 5.5 thou/uL (4.8-10.8)
[2018-11-16 10:59] LABS: Anion Gap 10 mmol/L (10-20); BUN (Urea Nitrogen) 19 mg/dL (9.8-20.1); Calc. Creatinine Clearance 62 mL/min (70-130); Calcium 7.4 mg/dL (7.8-10.44); Carbon Dioxide 25 mmol/L (23-31); Chloride 109 mmol/L (98-107); Estimated GFR-MDRD 88; Glucose 224 mg/dL (83-110); Potassium 3.3 mmol/L (3.5-5.1); Sodium 141 mmol/L (136-145)
--- NOTE | 2018-11-16 12:58 | PQF ---
FRAN BULLOCK DR. [id number]- [id number] CLINICAL DOCUMENTATION IMPROVEMENT CLARIFICATION FORM: ICD-10 Updated PLEASE DO AN ADDENDUM TO THE PROGRESS NOTE WITH ANY DOCUMENTATION UPDATES OR ADDITIONS AND CARRY THROUGH TO DC SUMMARY. THANK YOU. DATE: 11-16-18 ATTN: DR. CASTELLANO Please exercise your independent, professional judgment in responding to the clarification form. Clinical indicators are provided on the bottom of this form for your review Please check appropriate box(s): [ x ] Acute Metabolic Encephalopathy: [ ] Acute Toxic Encephalopathy [ ] Other diagnosis [ ] Unable to determine In addition, please specify: Present on Admission (POA): [x ] Yes [ ] No [ ] Unable to determine For continuity of documentation, please document condition throughout progress notes and discharge summary. Thank You. CLINICAL INDICATORS - SIGNS / SYMPTOMS / LABS H&P(CONOR): ENCEPHALOPATHY, ACUTE, MOST LIKE DUE TO URINARY TRACT INFECTION. LABS: Hgb Hct 11-14 @ 1326 6.4 19.4 11-14 @ 2128 8.5 25.2 11-14 UA - POSITIVE URINE NITRITE; MODERATE LEUKOCYTES; 11-20 WBC; 3+ BACTERIA RISK FACTORS H&P(CONOR): SYMPTOMATIC ANEMIA ; UTI; 11-15 (NONA) CACHECTIC; MODERATE PROTEIN CALORIE MALNUTRITION; HX CVA W/ LEFT HEMIPARESIS TREATMENTS: MAR: ROCEPHIN IV 11-14 / 11-15 2 UNITS PRBC 11-14 DIETARY CONSULT THANK YOU, JENIFER (This form is maintained as a part of the permanent medical record) 2014 [employer]. All Rights Reserved Jenifer Marinelli, RN, BS [email or web address]
--- NOTE | 2018-11-16 12:59 | PDOC.PN ---
- Subjective Encounter Start Date: 11/16/18 Encounter Start Time: 09:15 Patient seen and examined. No new complaints. No overnight events - Objective Resuscitation Status - Order Detail: 11/14/18 20:41 Resuscitation Status Routine Resuscitation Status: FULL: Full Resuscitation MAR Reviewed: Yes Vital Signs & Weight: Vital Signs (12 hours) Temp Pulse Resp BP BP Pulse Ox 11/16/18 08:00 95 11/16/18 07:56 98.0 F 73 16 153/90 H 95 11/16/18 06:54 91 L 11/16/18 04:00 98.2 F 69 20 163/84 H 95 Weight Admit Weight 142 lb 1 oz Weight 142 lb 1 oz I&O: 11/15/18 11/16/18 11/17/18 06:59 06:59 06:59 Intake Total 350 360 240 Balance 350 360 240 Result Diagrams: 11/16/18 10:21 11/16/18 10:21 Additional Labs: Accuchecks 11/16/18 11/16/18 11/15/18 11:21 06:10 20:28 POC Glucose 252 H 175 H 163 H Phys Exam - Physical Examination Constitutional: NAD HEENT: PERRLA, moist MMs, sclera anicteric Neck: no JVD, supple Respiratory: no wheezing, no rales, no rhonchi Cardiovascular: RRR, no significant murmur, no rub Gastrointestinal: soft, non-tender, no distention, positive bowel sounds Musculoskeletal: no edema, pulses present Neurological: non-focal Lymphatic: no nodes Psychiatric: normal affect Skin: no rash, normal turgor Dx/Plan (1) Symptomatic anemia Code(s): D64.9 - ANEMIA, UNSPECIFIED Status: Acute (2) Folate deficiency Code(s): E53.8 - DEFICIENCY OF OTHER SPECIFIED B GROUP VITAMINS Status: Acute (3) Hypokalemia Code(s): E87.6 - HYPOKALEMIA Status: Acute (4) UTI (urinary tract infection) Status: Acute (5) Weakness generalized Code(s): R53.1 - WEAKNESS Status: Acute (6) Chronic anticoagulation Code(s): Z79.01 - THERAPY TECHNICIAN (CURRENT) USE OF ANTICOAGULANTS Status: Chronic (7) Dementia Code(s): F03.90 - UNSPECIFIED DEMENTIA WITHOUT BEHAVIORAL DISTURBANCE Status: Chronic (8) Diabetes type 2, controlled Code(s): E11.9 - TYPE 2 DIABETES MELLITUS WITHOUT COMPLICATIONS Status: Chronic (9) Dyslipidemia Code(s): E78.5 - HYPERLIPIDEMIA, UNSPECIFIED Status: Chronic (10) History of pulmonary embolism Code(s): Z86.711 - PERSONAL HISTORY OF PULMONARY EMBOLISM Status: Chronic (11) Hypertension Code(s): I10 - ESSENTIAL (PRIMARY) HYPERTENSION Status: Chronic (12) Hypothyroidism Code(s): E03.9 - HYPOTHYROIDISM, UNSPECIFIED Status: Chronic (13) Protein-calorie malnutrition, moderate Code(s): E44.0 - MODERATE PROTEIN-CALORIE MALNUTRITION Status: Chronic (14) Recurrent falls Code(s): R29.6 - REPEATED FALLS Status: Chronic - Plan cont current plan of care, continue antibiotics * continue rocephin * on discharge cipro * H & H stable * as per GI, no need of procedure * medication reviewed as below * symptomatic treatment * expecting discharge tomorrow. * I have update plan of care to family yesterday Review of Systems - Review of Systems Other: not reliable due to her baseline cognitive deficit - Medications/Allergies Allergies/Adverse Reactions: Allergies Allergy/AdvReac Type Severity Reaction Status Date / Time No Known Allergies Allergy Verified 11/14/18 21:01 Medications: Current Medications Acetaminophen (Tylenol) 650 mg PO Q4H PRN PRN Reason: Headache/Fever/Mild Pain (1-3) Apixaban (Eliquis) 5 mg PO BID [facility] Last Admin: 11/16/18 07:34 Dose: 5 mg Atorvastatin Calcium (Lipitor) 10 mg PO HS [facility] Last Admin: 11/15/18 19:58 Dose: 10 mg Bisacodyl (Dulcolax) 10 mg PO DAILYPRN PRN PRN Reason: Constipation Bisacodyl (Dulcolax) 10 mg MA DAILY PRN PRN Reason: Constipation Calcium Carbonate (Tums) 1,000 mg PO BID-[facility] Last Admin: 11/16/18 07:34 Dose: 1,000 mg Calcium/Vitamin D (Caltrate 600 + Vit D) 1 tab PO DAILY [facility] Last Admin: 11/16/18 07:36 Dose: 1 tab Carvedilol (Coreg) 12.5 mg PO BID [facility] Last Admin: 11/16/18 07:35 Dose: 12.5 mg Cholecalciferol (Vitamin D) 400 units PO DAILY [facility] Last Admin: 11/15/18 08:26 Dose: 400 units Clonidine (Catapres) 0.1 mg PO Q6H PRN PRN Reason: Hypertension Cyanocobalamin (Vitamin B-12) 1,000 mcg PO DAILY [facility] Last Admin: 11/16/18 07:36 Dose: 1,000 mcg Dextrose/Water (Dextrose 50%) 25 gm SLOW IVP PRN PRN PRN Reason: Hypoglycemia Diphenhydramine HCl (Benadryl) 25 mg PO Q6H PRN PRN Reason: Itching & Insomnia Famotidine (Pepcid) 20 mg PO BID [facility] Last Admin: 11/16/18 07:36 Dose: 20 mg Ferrous Sulfate (Feosol) 325 mg PO QA-[facility] Last Admin: 11/16/18 07:36 Dose: 325 mg Folic Acid (Folvite) 1 mg PO BID [facility] Last Admin: 11/16/18 07:35 Dose: 1 mg Glucagon (Glucagon) 1 mg IM PRN PRN PRN Reason: Hypoglycemia Guaifenesin/Dextromethorphan (Robitussin Dm) 15 ml PO Q4H PRN PRN Reason: Cough Dextrose/Water (D5w) 1,000 mls @ 0 mls/hr IV .Q0M PRN PRN Reason: Hypoglycemia Ceftriaxone Sodium 1 gm/ (Sodium Chloride) 100 mls @ 200 mls/hr IVPB Q24HR [facility] Last Admin: 11/15/18 17:37 Dose: 100 mls Insulin Human Lispro (Humalog) 0 units SC .MILD SLIDING SCALE PRN PRN Reason: Mild Correctional Scale Insulin Human Lispro (Humalog) 0 units SC .BEDTIME SLIDING SC PRN PRN Reason: Bedtime Correctional Scale Iron/Minerals/Multivitamins (Theragran M) 1 tab PO DAILY [facility] Last Admin: 11/16/18 07:36 Dose: 1 tab Lactulose (Lactulose) 30 gm PO TID PRN PRN Reason: Constipation Levothyroxine Sodium (Synthroid) 200 mcg PO 0600 [facility] Last Admin: 11/16/18 04:17 Dose: Not Given Lisinopril (Zestril) 20 mg PO DAILY [facility] Last Admin: 11/16/18 07:35 Dose: 20 mg Magnesium Hydroxide (Milk Of Magnesium) 30 ml PO DAILY PRN PRN Reason: Constipation Metformin HCl (Glucophage) 500 mg PO BID-[facility] Last Admin: 11/16/18 07:35 Dose: 500 mg Miscellaneous Medication (Pharmacy To Dose) 1 each IVPB PRN PRN PRN Reason: Pharmacy to dose Ondansetron HCl (Zofran) 4 mg IVP Q6H PRN PRN Reason: Nausea/Vomiting Ondansetron HCl (Zofran Odt) 4 mg PO Q6H PRN PRN Reason: Nausea/Vomiting Polyethylene Glycol (Miralax) 8.5 gm PO [facility] Last Admin: 11/15/18 19:59 Dose: 8.5 gm Potassium Chloride (Klor-Con) 20 meq PO DAILY [facility] Last Admin: 11/16/18 07:37 Dose: 20 meq Senna (Senokot) 1 tab PO QAM PRN PRN Reason: Constipation Senna/Docusate Sodium (Senokot S) 2 tab PO BIDPRN PRN PRN Reason: Constipation Sodium Chloride (Flush - Normal Saline) 10 ml IVF Q12HR PRN PRN Reason: Saline Flush Last Admin: 11/16/18 07:37 Dose: 10 ml Sodium Chloride (Flush - Normal Saline) 10 ml IVF PRN PRN PRN Reason: Saline Flush Zolpidem Tartrate (Ambien) 5 mg PO HSPRN PRN PRN Reason: Insomnia
--- NOTE | 2018-11-16 13:12 | PQF ---
FRAN BULLOCK DR. [id number] T4-A- [id number] CLINICAL DOCUMENTATION IMPROVEMENT CLARIFICATION FORM: ICD-10 Updated PLEASE DO AN ADDENDUM TO THE PROGRESS NOTE WITH ANY DOCUMENTATION UPDATES OR ADDITIONS AND CARRY THROUGH TO DC SUMMARY. THANK YOU. DATE: 11-16-18 ATTN: DR. CASTELLANO Please exercise your independent, professional judgment in responding to the clarification form. Clinical indicators are provided on the bottom of this form for your review Please check appropriate box(s): [x ] Pressure Ulcer Sacrum Stage 3 [ ] Decubitus Coccyx Stage 2 [ ] Other diagnosis [ ] Unable to determine In addition, please specify: Present on Admission (POA): [ x] Yes [ ] No [ ] Unable to determine For continuity of documentation, please document condition throughout progress notes and discharge summary. Thank You. CLINICAL INDICATORS - SIGNS / SYMPTOMS / LABS ED: PU SACRUM STAGE 3 H&P ( CONOR): STAGE 2 DECUBITUS COCCYX 11-15 WOUND CARE: PU STAGE 3 SACRUM RISK FACTORS: H&P: DM TYPE 2; ALF RESIDENT; GENERALIZED WEAKNESS AND LETHARGY; FREQUENT FALLS; DEMENTIA; PHYSICAL DECONDITIONING 11-15 (SID) RECENT CVA AND SACRAL DECUBITUS ULCERATION - W/ LEFT HEMIPARESIS TREATMENTS: 11-15 (NONA) MODERATE PROTEIN CALORIE MALNUTRITION 11-15 WOUND CARE CONSULT: PU STAGE 3 SACRUM / IMMOBILITY COVER W/ TEGADERM + PAD / REINFORCE W/ ABSORBENT PAD AND GAUZE ROLL AND PERORATED TAPE FOLLOWING NURSING WOUND CARE PROTOCOL REYES HOLDER THANK YOU, JENIFER (This form is maintained as a part of the permanent medical record) 2014 [employer]. All Rights Reserved Jenifer Marinelli RN, BS [email or web address]
[2018-11-16] MEDS: Cholecalciferol (Vitamin D3) 400 UNITS TAB PO SCH (15:31)
[2018-11-16] MEDS: HumaLOG 300 UNITS/3 ML VIAL SC PRN (16:30)
[2018-11-16] MEDS: cefTRIAXone\\ROCEPHIN 1 GM in Sodium Chloride 0.9% 100 ML IVPB SCH (17:23)
[2018-11-16] MEDS: Polyethylene Glycol 3350 17 GM Packet PO SCH (19:31)
[2018-11-16] MEDS: Atorvastatin Calcium 10 MG TAB PO SCH (19:33)
[2018-11-17] MEDS: Levothyroxine Sodium 100 MCG TAB PO SCH (05:33)
[2018-11-17 07:44] VITALS: BP 175/73; TEMP 98.1
[2018-11-17] MEDS: Apixaban 5 MG TAB PO SCH (07:46)
[2018-11-17] MEDS: Calcium Carbonate 500 MG ChewTAB PO SCH ×2 (07:46→16:53)
[2018-11-17] MEDS: Lisinopril 20 MG TAB PO SCH (07:46)
[2018-11-17] MEDS: Cholecalciferol (Vitamin D3) 400 UNITS TAB PO SCH (07:46)
[2018-11-17] MEDS: Multivitamin W/ Minerals 1 TAB PO SCH (07:46)
[2018-11-17] MEDS: Ferrous Sulfate 325 MG TAB PO SCH (07:47)
[2018-11-17] MEDS: Famotidine 20 MG TAB PO SCH (07:47)
[2018-11-17] MEDS: Calcium Carbonate + Vit D 1 TAB PO SCH (07:47)
[2018-11-17] MEDS: Carvedilol 25 MG TAB PO SCH (07:47)
[2018-11-17] MEDS: metFORMIN 500 MG TAB PO SCH ×2 (07:47→16:53)
[2018-11-17] MEDS: Folic Acid 1 MG TAB PO SCH (07:47)
[2018-11-17] MEDS: Cyanocobalamin (Vitamin B-12) 1,000 MCG TAB PO SCH (07:48)
--- NOTE | 2018-11-17 09:05 | PDOC.PN ---
- Subjective Encounter Start Date: 11/17/18 Encounter Start Time: 07:40 Patient seen and examined. No new complaints. No overnight events - Objective Resuscitation Status - Order Detail: 11/17/18 08:27 Resuscitation Status Routine Resuscitation Status: DNAR: NO Resuscitation Discussed with: discussed with MPOA and confirmed MAR Reviewed: Yes Vital Signs & Weight: Vital Signs (12 hours) Temp Pulse Resp BP BP Pulse Ox 11/17/18 07:43 98.1 F 68 18 175/73 H 95 11/17/18 04:27 97.7 F 73 16 168/78 H 97 11/17/18 00:35 98.4 F 66 16 156/77 H 97 Weight Admit Weight 142 lb 1 oz Weight 142 lb 1 oz I&O: 11/16/18 11/17/18 11/18/18 06:59 06:59 06:59 Intake Total 360 720 Balance 360 720 Result Diagrams: 11/16/18 10:21 11/16/18 10:21 Additional Labs: Accuchecks 11/17/18 11/16/18 11/16/18 04:33 22:44 16:25 POC Glucose 179 H 202 H 209 H 11/16/18 11/16/18 11:21 06:10 POC Glucose 252 H 175 H Phys Exam - Physical Examination Constitutional: NAD HEENT: PERRLA, moist MMs, sclera anicteric Neck: no JVD, supple Respiratory: no wheezing, no rales, no rhonchi, clear to auscultation bilateral Cardiovascular: RRR, no significant murmur, no rub Gastrointestinal: soft, non-tender, no distention Musculoskeletal: no edema, pulses present Neurological: moves all 4 limbs Lymphatic: no nodes Psychiatric: normal affect Skin: no rash, normal turgor Dx/Plan (1) Symptomatic anemia Code(s): D64.9 - ANEMIA, UNSPECIFIED Status: Acute (2) Folate deficiency Code(s): E53.8 - DEFICIENCY OF OTHER SPECIFIED B GROUP VITAMINS Status: Acute (3) Hypokalemia Code(s): E87.6 - HYPOKALEMIA Status: Acute (4) UTI (urinary tract infection) Status: Acute (5) Weakness generalized Code(s): R53.1 - WEAKNESS Status: Acute (6) Chronic anticoagulation Code(s): Z79.01 - BANKRUPTCY ATTORNEY (CURRENT) USE OF ANTICOAGULANTS Status: Chronic (7) Dementia Code(s): F03.90 - UNSPECIFIED DEMENTIA WITHOUT BEHAVIORAL DISTURBANCE Status: Chronic (8) Diabetes type 2, controlled Code(s): E11.9 - TYPE 2 DIABETES MELLITUS WITHOUT COMPLICATIONS Status: Chronic (9) Dyslipidemia Code(s): E78.5 - HYPERLIPIDEMIA, UNSPECIFIED Status: Chronic (10) History of pulmonary embolism Code(s): Z86.711 - PERSONAL HISTORY OF PULMONARY EMBOLISM Status: Chronic (11) Hypertension Code(s): I10 - ESSENTIAL (PRIMARY) HYPERTENSION Status: Chronic (12) Hypothyroidism Code(s): E03.9 - HYPOTHYROIDISM, UNSPECIFIED Status: Chronic (13) Protein-calorie malnutrition, moderate Code(s): E44.0 - MODERATE PROTEIN-CALORIE MALNUTRITION Status: Chronic (14) Recurrent falls Code(s): R29.6 - REPEATED FALLS Status: Chronic - Plan cont current plan of care, continue antibiotics, PT/OT, family welfare social work professor * medication reviewed as below * symptomatic treatment * see my discharge amaris. Review of Systems - Review of Systems ENT: negative: Ear Pain, Ear Discharge, Nose Pain, Nose Discharge, Nose Congestion, Mouth Pain, Mouth Swelling, Throat Pain, Throat Swelling, Other Respiratory: negative: Cough, Dry, Shortness of Breath, Hemoptysis, SOB with Excertion, Pleuritic Pain, Sputum, Wheezing Cardiovascular: negative: chest pain, palpitations, orthopnea, paroxysmal nocturnal dyspnea, edema, light headedness, other Gastrointestinal: negative: Nausea, Vomiting, Abdominal Pain, Diarrhea, Constipation, Melena, Hematochezia, Other Genitourinary: negative: Dysuria, Frequency, Incontinence, Hematuria, Retention , Other - Medications/Allergies Allergies/Adverse Reactions: Allergies Allergy/AdvReac Type Severity Reaction Status Date / Time No Known Allergies Allergy Verified 11/14/18 21:01 Medications: Current Medications Acetaminophen (Tylenol) 650 mg PO Q4H PRN PRN Reason: Headache/Fever/Mild Pain (1-3) Apixaban (Eliquis) 5 mg PO BID [facility] Last Admin: 11/17/18 07:46 Dose: 5 mg Atorvastatin Calcium (Lipitor) 10 mg PO HS [facility] Last Admin: 11/16/18 19:33 Dose: 10 mg Bisacodyl (Dulcolax) 10 mg PO DAILYPRN PRN PRN Reason: Constipation Bisacodyl (Dulcolax) 10 mg ME DAILY PRN PRN Reason: Constipation Calcium Carbonate (Tums) 1,000 mg PO BID[facility] Last Admin: 11/17/18 07:46 Dose: 1,000 mg Calcium/Vitamin D (Caltrate 600 + Vit D) 1 tab PO DAILY [facility] Last Admin: 11/17/18 07:47 Dose: 1 tab Carvedilol (Coreg) 12.5 mg PO BID [facility] Last Admin: 11/17/18 07:47 Dose: 12.5 mg Cholecalciferol (Vitamin D) 400 units PO DAILY [facility] Last Admin: 11/17/18 07:46 Dose: 400 units Clonidine (Catapres) 0.1 mg PO Q6H PRN PRN Reason: Hypertension Cyanocobalamin (Vitamin B-12) 1,000 mcg PO DAILY [facility] Last Admin: 11/17/18 07:48 Dose: 1,000 mcg Dextrose/Water (Dextrose 50%) 25 gm SLOW IVP PRN PRN PRN Reason: Hypoglycemia Diphenhydramine HCl (Benadryl) 25 mg PO Q6H PRN PRN Reason: Itching & Insomnia Famotidine (Pepcid) 20 mg PO BID [facility] Last Admin: 11/17/18 07:47 Dose: 20 mg Ferrous Sulfate (Feosol) 325 mg PO QAM[facility] Last Admin: 11/17/18 07:47 Dose: 325 mg Folic Acid (Folvite) 1 mg PO BID [facility] Last Admin: 11/17/18 07:47 Dose: 1 mg Glucagon (Glucagon) 1 mg IM PRN PRN PRN Reason: Hypoglycemia Guaifenesin/Dextromethorphan (Robitussin Dm) 15 ml PO Q4H PRN PRN Reason: Cough Dextrose/Water (D5w) 1,000 mls @ 0 mls/hr IV .Q0M PRN PRN Reason: Hypoglycemia Ceftriaxone Sodium 1 gm/ (Sodium Chloride) 100 mls @ 200 mls/hr IVPB Q24HR [facility] Last Admin: 11/16/18 17:23 Dose: 100 mls Insulin Human Lispro (Humalog) 0 units SC .MILD SLIDING SCALE PRN PRN Reason: Mild Correctional Scale Last Admin: 11/16/18 16:30 Dose: 3 unit Insulin Human Lispro (Humalog) 0 units SC .BEDTIME SLIDING SC PRN PRN Reason: Bedtime Correctional Scale Iron/Minerals/Multivitamins (Theragran M) 1 tab PO DAILY [facility] Last Admin: 11/17/18 07:46 Dose: 1 tab Lactulose (Lactulose) 30 gm PO TID PRN PRN Reason: Constipation Levothyroxine Sodium (Synthroid) 200 mcg PO 0600 [facility] Last Admin: 11/17/18 05:33 Dose: 200 mcg Lisinopril (Zestril) 20 mg PO DAILY [facility] Last Admin: 11/17/18 07:46 Dose: 20 mg Magnesium Hydroxide (Milk Of Magnesium) 30 ml PO DAILY PRN PRN Reason: Constipation Metformin HCl (Glucophage) 500 mg PO BID-[facility] Last Admin: 11/17/18 07:47 Dose: 500 mg Miscellaneous Medication (Pharmacy To Dose) 1 each IVPB PRN PRN PRN Reason: Pharmacy to dose Ondansetron HCl (Zofran) 4 mg IVP Q6H PRN PRN Reason: Nausea/Vomiting Ondansetron HCl (Zofran Odt) 4 mg PO Q6H PRN PRN Reason: Nausea/Vomiting Polyethylene Glycol (Miralax) 8.5 gm PO HS [facility] Last Admin: 11/16/18 19:31 Dose: 8.5 gm Potassium Chloride (Klor-Con) 20 meq PO DAILY [facility] Last Admin: 11/17/18 07:46 Dose: 20 meq Senna (Senokot) 1 tab PO QAM PRN PRN Reason: Constipation Senna/Docusate Sodium (Senokot S) 2 tab PO BIDPRN PRN PRN Reason: Constipation Sodium Chloride (Flush - Normal Saline) 10 ml IVF Q12HR PRN PRN Reason: Saline Flush Last Admin: 11/16/18 07:37 Dose: 10 ml Sodium Chloride (Flush - Normal Saline) 10 ml IVF PRN PRN PRN Reason: Saline Flush Zolpidem Tartrate (Ambien) 5 mg PO HSPRN PRN PRN Reason: Insomnia
--- NOTE | 2018-11-17 10:18 | DIS ---
DATE OF ADMISSION: 11/14/2018 DATE OF DISCHARGE: 11/17/2018 PRIMARY CARE PHYSICIAN: DISCHARGE DISPOSITION: [facility] home. PRIMARY DISCHARGE DIAGNOSES: 1. Symptomatic anemia, status post 2 units transfusion. 2. Folate deficiency. 3. Hypokalemia. 4. Urinary tract infection. 5. Acute metabolic encephalopathy on admission, resolved. 6. Stage III sacral decubitus ulcer present on admission. SECONDARY DISCHARGE DIAGNOSES: 1. Moderate protein-calorie malnutrition. 2. Recurrent fall. 3. Hypothyroidism. 4. Hypertension. 5. History of pulmonary embolism. 6. Dyslipidemia. 7. Diabetes, type 2. 8. Dementia. 9. Chronic anticoagulation. 10. Chronic physical deconditioning. PRIMARY PROCEDURES/OPERATION: None. RADIOLOGICAL INVESTIGATION: Chest x-ray was unremarkable. Abdominal ultrasound showed cholelithiasis. LABORATORY DATA: Significant labs; WBC 5.5, hemoglobin 9.9, and platelets 296. Sodium 141, potassium 3.3, BUN 19, creatinine 0.64, calcium 7.4, folate 5.10, and B12 of 309. LFT normal. BNP 359. Urinalysis suggestive of UTI. Urine culture grew E coli. Stool for guaiac negative. DISCHARGE MEDICATIONS: Following are scheduled medications: 1. Vitamin D3 400 units p.o. daily. 2. Synthroid 200 mcg p.o. daily. 3. Lisinopril 20 mg daily. 4. Metformin 500 mg p.o. b.i.d. 5. Multivitamin one tablet p.o. daily. 6. MiraLAX 17 g p.o. at bedtime. 7. Potassium chloride 20 mEq p.o. daily. 8. Cipro 250 mg p.o. b.i.d. for 5 more days. 9. Eliquis 5 mg p.o. b.i.d. 10. Lipitor 10 mg p.o. at bedtime. 11. Coreg 12.5 mg p.o. b.i.d. 12. Vitamin B12 of 1000 mcg p.o. daily. 13. Pepcid 20 mg p.o. b.i.d. 14. Ferrous sulfate 325 mg p.o. daily. 15. Folic acid 1 mg p.o. b.i.d. CONTRAINDICATION: None. CODE STATUS: DNR, this was discussed during this admission. INPATIENT EXPANDING MACHINE OPERATOR: Dr. Alexys Lofton was consulted for symptomatic anemia. TEST RESULT PENDING ON DISCHARGE: None. ALLERGIES: NO KNOWN DRUG ALLERGIES. DISCHARGE PLAN: Posthospital, the patient is planned for discharge back to senior living. HOSPITAL COURSE: An 88-year-old female with above-mentioned medical problem, who was admitted by Dr. Ontiveros on November 15, 2018. Please see his H and P for further details. On admission, the patient was lethargic, somnolent, and very weak. She was having encephalopathy, which was related with metabolic etiologies. She had significant low hemoglobin without any acute blood loss. During this admission, she was given 2 units of blood transfusion. Subsequently, her H and H remained stable without any further drop. Gastroenterology was consulted for further evaluation and they decided not to do any more procedure on her. Her stool for guaiac was also negative, and her H and H also remained stable. We are suspecting her anemia, which is nutritional. She has folate deficiency and that is why we started folic acid, vitamin B12, and ferrous sulfate therapy. While in the hospital, we provided nutrition. This patient did have pressure ulcer on admission and that is why Wound Care Team was following. This patient had UTI and that is why we treated her with Rocephin. On discharge, we changed to Cipro. The patient's code status was changed to DNR during this admission after discussion with the family member. Palliative Care was consulted while in the hospital. The patient was seen and examined at bedside today. Please see my progress note from today for further details. Paperwork for discharge done. Discharge medication reconciliation done. Total time spent on discharge day, 31 minutes. Job ID: [id number]
[2018-11-17] MEDS: HumaLOG 300 UNITS/3 ML VIAL SC PRN (11:39)
[2018-11-17] MEDS: cefTRIAXone\\ROCEPHIN 1 GM in Sodium Chloride 0.9% 100 ML IVPB SCH (16:54)
--- NOTE | 2018-11-18 18:29 | EKG ---
Test Reason : WEAKNESS Blood Pressure : / mmHG Vent. Rate : 075 BPM Atrial Rate : 075 BPM P-R Int : 146 ms QRS Dur : 094 ms QT Int : 404 ms P-R-T Axes : 020 -06 017 degrees QTc Int : 451 ms Normal sinus rhythm Incomplete right bundle branch block T wave abnormality, consider anterior ischemia Abnormal ECG Confirmed by KAYLA EDEN DO ([id number]), editorial director MARISEL NIXON ([id number]) on 11/18/2018 6:29:16 PM Referred By: Confirmed By:KAYLA EDEN DO
== END 2018-11-17 17:13 | DRG 811 ==
LOC: ERS 12:54 → T4-A 17:30
PROVIDERS: ADMIT Internal Medicine Infectious Disease; ATTEND Internal Medicine Infectious Disease
PROC: 30233N1 Transfusion of Nonautologous Red Blood Cells into Peripheral Vein, Percutaneous Approach (ICD-10-PCS; principal; 2018-11-14)
DX: D64.9 Anemia, unspecified (principal); L89.153 Pressure ulcer of sacral region, stage 3; G93.41 Metabolic encephalopathy; N39.0 Urinary tract infection, site not specified; E44.0 Moderate protein-calorie malnutrition; E53.8 Deficiency of other specified B group vitamins; E87.6 Hypokalemia; Z79.01 Long term (current) use of anticoagulants; F03.90 Unspecified dementia, unspecified severity, without behavioral disturbance, psychotic disturbance, mood disturbance, and anxiety; E78.5 Hyperlipidemia, unspecified; Z86.711 Personal history of pulmonary embolism; I10 Essential (primary) hypertension; E03.9 Hypothyroidism, unspecified; R29.6 Repeated falls; D52.9 Folate deficiency anemia, unspecified
CPT/HCPCS: 36415; 36416; 36430; 51701; 71045; 76700; 80048; 80053; 81003; 81015; 82274; 82607; 82746; 83540; 83550; 83735; 83880; 84100; 84484; 85025; 86850; 86900; 86901; 87077; 87086; 87186; 93005; 96365; 96375; A4353; C9113; G8996-GN-CK; G8997-GN-CJ; J0696; J7050; P9016

== ENCOUNTER 2019-02-27 11:18 | Inpatient (IN) | payer MEDICARE, OTHER ==
--- NOTE | 2019-02-27 11:58 | RAD ---
Exam: Chest one view: HISTORY: Altered mental status, desaturation, difficulty breathing COMPARISON: 11/14/2018 FINDINGS: Abnormal opacity in the left lower lobe with some patchy perihilar alveolar and interstitial parenchy mal changes evidence for bilateral pneumonia. Previous noted pleural effusions have improved. IMPRESSION: Abnormal opacity in the left lower lobe worrisome for pneumonia with possible associated left pleural effusion. Patchy bilateral perihilar parenchymal changes somewhat more prominent than on prior study . Improving bilateral pleural effusions.
--- NOTE | 2019-02-27 12:07 | CT ---
CT Brain WO Con: 02/27/2019 11:30 AM CLINICAL HISTORY: Altered mental status. COMPARISON: 10/23/2018 FINDINGS: Hemorrhage: None. Ventricular system: Mild compensatory dilatation. Cerebral parenchyma: Moderate chronic ischemic disease. 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 Mass: No mass effect. Calvarium: Normal. Visualized Paranasal sinuses: Clear. IMPRESSION: No acute intracranial abnormalities. Chronic ischemic disease.
[2019-02-27 12:44] LABS: #Basophils 0.1 thou/uL (0.0-0.2); #Monocytes 0.2 thou/uL (0.11-0.59); #Neutrophils 3.7 thou/uL (1.40-6.50); %Basophils 1.1 % (0.0-1.0); %Eosinophils 0.2 % (0.0-10.0); %Lymphocytes 19.4 % (21.0-51.0); %Monocytes 4.6 % (0.0-10.0); %Neutrophils 74.7 % (42.0-75.0); Hemoglobin 11.8 g/dL (12.0-16.0); Mean Corpuscular HGB CONC 31.3 g/dL (32.0-36.0); Mean Corpuscular Hemoglobin 28.5 pg (27.0-31.0); Mean Platelet Volume 6.9 fL (7.4-10.4); Platelet Count 318 thou/uL (130-400); RBC Distribution Width 13.9 % (11.5-14.5); Red Blood Cell (RBC) Count 4.14 mill/uL (4.20-5.40); White Blood Cell (WBC) Count 4.9 thou/uL (4.8-10.8)
[2019-02-27 12:53] LABS: Bilirubin Negative (Negative); Blood, Urine Negative (Negative); Clarity CLEAR (Clear); Glucose, Urine (Dipstick) Negative (Negative); Leukocyte Small (Negative); Nitrite Negative (Negative); Protein, Urine (Dipstick) Trace mg/dL (Neg-Trace); Specific Gravity, Urine 1.027 (1.002-1.036); pH, Urine 5.5 (5.0-9.0)
[2019-02-27 12:55] LABS: Bacteria/HPF Rare-Few HPF (None Seen); Hyaline Casts/LPF 4-6 HYALINE CAST LPF (0-3 Hyaline); Pathc Cast-AUWi Flag 0.68 (0-2.49); RBC/HPF 0-3 HPF (0-3); Squamous Epithelial 0-3 HPF (0-3)
[2019-02-27 13:05] LABS: ALT (SGPT) 13 U/L (8-55); AST (SGOT) 10 U/L (5-34); Albumin 2.7 g/dL (3.4-4.8); Alkaline Phosphatase 52 U/L (40-150); Anion Gap 11 mmol/L (10-20); BUN (Urea Nitrogen) 30 mg/dL (9.8-20.1); Bilirubin, Total 0.7 mg/dL (0.2-1.2); Calc. Creatinine Clearance 0 mL/min (70-130); Calcium 8.5 mg/dL (7.8-10.44); Carbon Dioxide 28 mmol/L (23-31); Chloride 106 mmol/L (98-107); Estimated GFR-MDRD 79; Globulin 2.5 g/dL (2.4-3.5); Glucose 233 mg/dL (83-110); Potassium 3.9 mmol/L (3.5-5.1); Protein, Total 5.2 g/dL (6.0-8.3); Sodium 141 mmol/L (136-145)
[2019-02-27] MEDS ORDERED: Piperacillin/Tazobactam 4.5 GM VIAL ONE (13:48)
[2019-02-27] MEDS ORDERED: Sodium Chloride 0.9% 100 ML ONE (13:48)
--- NOTE | 2019-02-27 15:36 | CT ---
CT ABDOMEN AND PELVIS WITH CONTRAST: Date: 02/27/19 Multiple axial tomograms obtained through abdomen and pelvis with IV enhancement. INDICATION: Abdominal distention and pain. Altered mental status. Comparison made to CT abdomen and pelvis dated 10/13/18. FINDINGS: Images through the lung bases reveal dense consolidation or atelectasis of the left lower lobe. There is again evidence of pericardial effusion, which was noted previously. There is intra and extrahepatic biliary duct dilatation. There is a calculus in the region of the nec k of the gallbladder measuring approximately 8-10 mm, which was present previously. There is a cyst i n the left lobe of the liver, which is stable. Spleen unremarkable. Images of the pancreas now show a cystic lesion in the body of the pancreas measuring 1.2 cm, which i s new when compared to the prior study. Adrenal glands and kidneys are unremarkable. Urinary bladder is compressed with Nelson catheter. Large amount of stool throughout the colon is again noted. There is a stool-filled dilated rectum fernando suring up to 15.0 cm. Bowel wall thickening is seen indicating stercoral colitis associated with this fecal impaction. This displaces the bladder. Aorta is normal caliber. IMPRESSION: 1. Severe fecal impaction involving the rectosigmoid region with diameter measuring up to 15.0 cm. W all thickening indicates associated stercoral colitis. Similar findings were noted previously. 2. Gallstone in neck of gallbladder. Intra and extrahepatic biliary ductal dilatation is again noted , slightly more prominent today. 3. Dense consolidation or atelectasis or left lower lobe. 4. Evidence of small pericardial effusion. POS: [facility]
[2019-02-27] MEDS ORDERED: Ondansetron PF 4 MG/2 ML Vial IVP PRN (15:42)
[2019-02-27] MEDS ORDERED: Ondansetron ODT 4 MG TAB SL PRN (15:42)
[2019-02-27] MEDS ORDERED: Dextrose 50% Abboject 50 ML SYRINGE SLOW IVP PRN (15:48)
[2019-02-27] MEDS ORDERED: Dextrose 5% in Water 1,000 ML IV PRN (15:48)
[2019-02-27] MEDS ORDERED: Morphine 2 MG/ML SYRINGE SLOW IVP PRN (15:48)
[2019-02-27 15:59] VITALS: BMI 16.0
[2019-02-27] MEDS: Vancomycin HCl 750 MG in Sodium Chloride 0.9% 250 ML 250 ML IVPB SCH ×4 (16:20→16:22)
[2019-02-27 16:45] LABS: Lactic Acid 3.9 mmol/L (0.5-2.2)
[2019-02-27] MEDS ORDERED: ISOVUE-370 76%-LOCM 1 ML ONE (16:53)
--- NOTE | 2019-02-27 18:02 | HP ---
PRIMARY CARE PHYSICIAN: Praful Francis MD CHIEF COMPLAINT: Poor appetite and coughing. HISTORY OF PRESENT ILLNESS: Ms. Alonzo is an 88-year-old female who has advanced dementia, and she currently resides at the [facility] in [place]. Her daughter is the historian as the patient is unable to give me any history due to the dementia and lethargy. She has had an extensive recent hospital course and where she was recently admitted to the hospital back in September where she had generalized weakness and was found to have acute on chronic kidney failure and severe constipation secondary to hypothyroidism. Apparently while she was in the hospital, she developed an acute stroke and then was sent to the inpatient rehab. From there, she went to [facility] and stayed there for a week. Apparently during this time, she had a decubitus ulcer, and this was being treated at the [facility]. She then got transitioned to the [facility], and her daughter says that she had been doing fairly well, and the decubitus ulcer had almost completely healed. When she noticed that her mother seemed to be sleeping a lot on Tuesday and then noticed a decrease in her appetite and on Tuesday, she came around lunch time and noticed that her mother had not been eating much again either. She also noted that her mom had what she described as a raspy cough, but was not really coughing up anything. She asked the nursing education consultant to check on her mom, and then she left for the evening. The following day, she came to visit her mom and noticed that the nursing staff there had already summoned the ambulance and was in the process of taking her mom to the hospital. She noticed that her mom was a bit lethargic and seemed a little bit confused. When she did come to the emergency room, she was evaluated. A CT scan of the brain was done, which was negative, and a chest x-ray done, showed findings consistent with a left lower lobe pneumonia, and she is being admitted for this. Her daughter says that she also noted a very hard area in her mother's abdomen, which she says the nursing facility said it was "mass." She says that something similar to this happened to her mom before, but it was diagnosed as constipation, and she says that it actually got better. When I asked the patient if she is having any abdominal pain, she denies this; however, I am unable to say whether or not this is reliable as she basically says no to every question that you ask her and she is completely disoriented. She believes that it is 1920, and she does not know where she is currently. REVIEW OF SYSTEMS: Again, this is unreliable due to the patient's dementia. PAST MEDICAL HISTORY: Significant for hypertension, dementia, diabetes mellitus type 2, hyperlipidemia, hypothyroidism, cerebrovascular accident, and decubitus ulcer. PAST SURGICAL HISTORY: She has had some type of thyroid procedure sounds like radioactive iodine. ALLERGIES: NO KNOWN DRUG ALLERGIES. SOCIAL HISTORY: She is a nonsmoker and nondrinker. She is a DNAR. FAMILY HISTORY: Significant for Parkinson disease as well as cancer. MEDICATIONS: Taken from the ER records and include: 1. Metformin 500 mg twice a day. 2. Lisinopril 20 mg daily. 3. Levothyroxine 200 mcg daily. 4. Lactulose 10 g q.8. 5. Folic acid 1 mg daily. 6. Feosol 325 mg daily. 7. Dulcolax 10 mg rectally. 8. Vitamin B12, 1000 mcg daily. 9. Catapres 0.1 q.6 as needed. 10. Carvedilol 12.5 mg twice a day. 11. Calcium plus vitamin D 1 tablet daily. 12. Atorvastatin 10 mg daily. 13. Tums one tablet twice a day. 14. Senna one tablet daily. 15. Potassium chloride 20 mEq daily. 16. Pepcid AC 20 mg daily. 17. Zofran 4 mg q.6 as needed. 18. MiraLAX 17 g daily. 19. Milk of magnesia p.r.n. PHYSICAL EXAMINATION: GENERAL: She is awake, but very lethargic. She opens her eyes to command. She is very ill appearing. She is cachectic with severe muscle wasting. VITAL SIGNS: Her blood pressure was 130/62, heart rate 81, respiratory rate of 26, and temperature is 98.4. HEENT: Her pupils are equal, round, and reactive. Extraocular muscles are intact. Her sclerae anicteric. Throat, there is no erythema no exudates. NECK: No adenopathy. No bruits. LUNGS: She did have some bilateral wheezing as well as some rhonchi. CARDIOVASCULAR: She had a normal S1, S2. I did not appreciate an S3 or S4. No murmurs, clicks, or rubs ABDOMEN: Her abdomen is distended. It is very tense and tympanic to percussion, and she did have an area of hard either induration or a subcutaneous mass along the right abdominal wall. There is no bruising or erythema however, and her bowel sounds were hypoactive to absent. EXTREMITIES: There is no edema. She did have some mottling on the knees, but no joint effusions. NEUROLOGIC: Her cranial nerves are essentially intact. Muscle strength was intact. SKIN AND INTEGUMENT: There is again some mottling around the knees, and she did have a stage III decubitus on the sacrum about 1 x 1 cm. LABORATORY RESULTS: Her white blood cell count 4.9, hemoglobin 11.8, hematocrit is 37.6, and platelet count was 318. Sodium 141, potassium 3.9, chloride is 106, CO2 is 28, BUN of 30, creatinine 0.7, and glucose is 233. ProBNP was 231. Troponin is less than 0.010. Urinalysis was essentially negative. As stated before, she had chest x-ray evidence for a left lower lobe pneumonia. ASSESSMENT: This is an 88-year-old female who presents to the emergency room with lethargy and generalized weakness, and she has been found to have a left lower lobe pneumonia. She has recently been hospitalized and lives in a nursing facility at this time and therefore, is at risk for healthcare-associated pneumonia and will be admitted and treated for this. So therefore, 1. Healthcare-associated pneumonia. We will place her on broad-spectrum IV antibiotics including vancomycin and Zosyn. Cultures have been drawn from the ER. We will follow these up. 2. Abdominal distention. This is unclear from the physical exam, although it is quite concerning, we will get a CT scan of the abdomen and pelvis to help get further elucidation on this. 3. Diabetes mellitus. We will place her on a sliding scale insulin until she is able to tolerate anything by mouth. 4. Hypothyroidism. She appears to be either over-replaced as her TSH is suppressed. We will get a free T4 to get further information on this. Otherwise, further treatment will be based on the patient's clinical course. Due to her advanced age, generalized poor medical condition and what appears to be at least a moderate protein-calorie malnutrition, her overall prognosis is guarded. Job ID: [id number]
[2019-02-27] MEDS ORDERED: Fleet Enema 133 ML BOT PR SCH (19:00)
[2019-02-27] MEDS ORDERED: Piperacillin/Tazobactam 4.5 GM in Sodium Chloride 0.9% 100 ML IVPB SCH (20:00)
[2019-02-27] MEDS: Sodium Chloride 0.9% 1,000 ML IV SCH (20:37)
[2019-02-27] MEDS: Piperacillin/Tazobactam 3.375 GM in Sodium Chloride 0.9% 100 ML IVPB SCH (20:38)
[2019-02-27] MEDS ORDERED: Vancomycin HCl 1 GM in Premix Bag 1 BAG IVPB SCH (21:00)
[2019-02-28] MEDS: Piperacillin/Tazobactam 3.375 GM in Sodium Chloride 0.9% 100 ML IVPB SCH ×4 (01:46→20:42)
[2019-02-28 04:50] LABS: #Lymphocytes 1.1 thou/uL (1.20-3.40); #Monocytes 0.4 thou/uL (0.11-0.59); #Neutrophils 8.2 thou/uL (1.40-6.50); %Basophils 0.2 % (0.0-1.0); %Eosinophils 0.1 % (0.0-10.0); %Lymphocytes 11.1 % (21.0-51.0); %Monocytes 4.2 % (0.0-10.0); %Neutrophils 84.4 % (42.0-75.0); Hemoglobin 10.4 g/dL (12.0-16.0); Mean Corpuscular HGB CONC 32.2 g/dL (32.0-36.0); Mean Corpuscular Hemoglobin 29.7 pg (27.0-31.0); Mean Corpuscular Volume 92.3 fL (78.0-98.0); Mean Platelet Volume 6.9 fL (7.4-10.4); Platelet Count 238 thou/uL (130-400); RBC Distribution Width 13.9 % (11.5-14.5); White Blood Cell (WBC) Count 9.7 thou/uL (4.8-10.8)
[2019-02-28 05:02] LABS: Anion Gap 11 mmol/L (10-20); BUN (Urea Nitrogen) 31 mg/dL (9.8-20.1); Calc. Creatinine Clearance 43 mL/min (70-130); Calcium 8.2 mg/dL (7.8-10.44); Carbon Dioxide 25 mmol/L (23-31); Chloride 110 mmol/L (98-107); Estimated GFR-MDRD 85; Glucose 183 mg/dL (83-110); Potassium 3.2 mmol/L (3.5-5.1); Sodium 143 mmol/L (136-145)
[2019-02-28] MEDS: Sodium Chloride 0.9% 1,000 ML IV SCH (05:08)
[2019-02-28] MEDS: Famotidine 20 MG TAB PO SCH (08:54)
[2019-02-28] MEDS: HumaLOG 300 UNITS/3 ML VIAL SC PRN (14:29)
[2019-02-28] MEDS ORDERED: Magnesium 2 GM/50 ML 2 GM in Premix Bag 1 BAG IVPB SCH (14:30)
[2019-02-28] MEDS ORDERED: Senokot S 8.6-50 MG TAB PO SCH (14:30)
[2019-02-28] MEDS ORDERED: Polyethylene Glycol 3350 17 GM Packet PO SCH (14:30)
--- NOTE | 2019-02-28 14:44 | CON ---
DATE OF CONSULTATION: 02/28/2019 SERVICE: Pulmonary Medicine. REASON FOR CONSULT: CU patient. HISTORY OF PRESENT ILLNESS: The patient is an 88-year-old white female with past medical history significant for advanced dementia. It is my understanding that at baseline, she is only oriented x1. She is occasionally alert. She presented to the hospital because of decreased p.o. intake. She had increasing mentation issues and there was reports of some degree of desaturation. Either way, she was subsequently brought to the emergency department. Workup at this moment is essentially unremarkable. She cannot provide any additional elements of the historical presentation. As such, everything is based on chart review. Imaging is only noteworthy for the horrendous constipation that she is suffering through. PAST MEDICAL HISTORY: 1. Dementia, advanced. 2. Hypertension. 3. Dyslipidemia. 4. Type 2 diabetes mellitus. 5. Hypothyroidism. 6. Cerebrovascular accident. 7. Decubitus ulcer, present on admission. PAST SURGICAL HISTORY: Thyroid procedure, possible radioactive iodine ablation. SOCIAL HISTORY: Negative for alcohol, tobacco, or illicit drug use. She has no exposure to chemicals, dust, asbestos, or tuberculosis currently. I do not know about her work history. FAMILY HISTORY: Noncontributory. ALLERGIES: NO KNOWN DRUG ALLERGIES. MEDICATIONS: List of her inpatient medications were reviewed. A couple small updates were made. REVIEW OF SYSTEMS: Cannot be obtained as the patient has extremely advanced dementia and is essentially nonverbal at this moment. PHYSICAL EXAMINATION: VITAL SIGNS: Afebrile. Pulse 99, blood pressure 158/90, respirations 20, and saturation 96% on 4 L nasal cannula. GENERAL: The patient is somnolent. She is in no apparent distress. She is breathing very slowly. There is no accessory muscle use. HEENT: Normocephalic and atraumatic. Sclerae white. Conjunctivae pink. Oral mucosa is quite dry. LUNGS: Excellent air entry. I do not hear a prolonged expiratory phase or wheezing. No rhonchi appreciated. HEART: Normal rate, regular. ABDOMEN: Soft. There is diffuse tenderness to palpation. There is a right- sided mass in her scaphoid abdomen. Bowel sounds are present. GENITOURINARY: Nelson catheter in place. NEUROLOGIC: Grossly nonfocal. She has diffusely depressed mental status. LABORATORY DATA: WBC 9.7, hemoglobin 10.4, platelets 238,000. Creatinine 0.66, basic metabolic profile is otherwise unremarkable except for potassium of 3.2. T4 is within the normal limits, TSH 0.19, troponin is negative x1. Lactate was originally 2.2 and is gently trended upward to 3.9, though the anion gap is normal. Bicarb 31. Liver function studies were unremarkable. BNP 231, which is below the only other BNP in our system. Urinalysis is unremarkable. Blood culture is growing gram-positive cocci in 1/2. C. diff antigen and toxin are negative. Urine Nelson is growing presumptive Pseudomonas. IMAGING: CT of the abdomen and pelvis demonstrates pronounced retained stool/ fecal impaction in the rectosigmoid region. She has a gallstone in the neck of the gallbladder without evidence of cholecystitis. There is a dense collection in the left lower lobe. I do not appreciate any significant air bronchograms. Underlying pneumonia cannot be excluded. CT brain demonstrates no acute intracranial abnormality. Chest x-ray demonstrates opacity in left lower lobe consistent with possible pneumonia versus severe atelectasis. As previously detailed in the CT of the belly, there was no effusion over there. ASSESSMENT: 1. Acute hypoxic respiratory failure. 2. Healthcare-associated pneumonia in the left lower lobe. 3. Fecal impaction, pronounced. 4. Severe sepsis. DISCUSSION AND PLAN: I will replace the potassium and magnesium today. I will recheck all those levels as well as a phosphorus tomorrow morning. We will give her frequent enemas. If this does not clear her stool content, GI consultation will need to be considered. I will place a Palliative Care consultation in. This patient has extremely advanced dementia, severe protein-calorie malnutrition, horrendous deconditioning and debility. She has underlying cognitive impairment that prevents her from rehabilitating to any meaningful effect. As such, she is at the end of her life, even under best of circumstances. Hospice would be an appropriate disposition for Ms. Alonzo. From my perspective; however, I do not see anything that keeps her in the ICU and she can be considered for transition to the medical unit. 70 minutes have been devoted to this patient in various activities. I personally reviewed all imaging studies and laboratory data noted within this document. For fifty percent of this time, I was interacting with the patient at the bedside or coordinating care with the care team. For the remainder of the time I was immediately available to the patient in the hospital unit. Job ID: [id number] MTDD
[2019-02-28] MEDS: Senokot S 8.6-50 MG TAB PO SCH (14:50)
--- NOTE | 2019-02-28 16:14 | PDOC.PN ---
- Subjective Encounter Start Date: 02/28/19 Encounter Start Time: 16:12 Subjective: pt remians somnolent and snoring.easy to wake up but yadav snot answer Q -: daughter at bedside and care discussed.she reports that Pt much better -: 2 BM since Fleet given today.no vomiting. - Objective Resuscitation Status - Order Detail: 02/27/19 14:36 Resuscitation Status Routine Resuscitation Status: DNAR: NO Resuscitation Discussed with: Discussed with patient's daughter NATALIO Reviewed: Yes Vital Signs & Weight: Vital Signs (12 hours) Temp Pulse Resp Pulse Ox 02/28/19 15:00 97.7 F 02/28/19 12:17 92 23 H 02/28/19 11:00 97.9 F 02/28/19 07:19 95 02/28/19 07:09 91 17 02/28/19 07:00 99.1 F Weight Admit Weight 102 lb 9.6 oz Weight 102 lb 9.6 oz Most Recent Monitor Data Heart Rate from ECG 86 NIBP 118/58 NIBP BP-Mean 78 Respiration from ECG 23 SpO2 89 I&O: 02/27/19 02/28/19 03/01/19 06:59 06:59 06:59 Intake Total 775 Output Total 500 Balance 275 Result Diagrams: 02/28/19 04:21 02/28/19 04:20 Additional Labs: Accuchecks 02/28/19 02/28/19 02/28/19 14:06 06:00 00:47 POC Glucose 199 H 200 H 195 H Microbiology 02/27/19 15:35 Stool C. difficile GDH Antigen & Toxins - Final 02/27/19 11:35 Stool - Pending Stool Occult Blood (KEV) - Final 02/27/19 13:51 Venous blood - Right Hand Blood Culture - Preliminary Specimen has been received and culture in progress. No Growth to date. 02/27/19 12:22 Venous blood - Right Arm Blood Culture - Preliminary Gram Positive Cocci 02/27/19 11:53 Urine vasquez catheter Urine Culture - Preliminary Presumptive Pseudomonas Phys Exam - Physical Examination Constitutional: NAD dry mucosa Neck: no nodes, no JVD, supple, full ROM Respiratory: no wheezing, no rales, no rhonchi, clear to auscultation bilateral Cardiovascular: RRR, no significant murmur Gastrointestinal: soft, non-tender, no distention, positive bowel sounds Musculoskeletal: no edema, pulses present Neurological: non-focal, normal sensation, moves all 4 limbs Psychiatric: normal affect, A&O x 3 Skin: no rash Dx/Plan (1) HCAP (healthcare-associated pneumonia) Code(s): J18.9 - PNEUMONIA, UNSPECIFIED ORGANISM Status: Acute (2) Fecal impaction in rectum Code(s): K56.41 - FECAL IMPACTION Status: Acute (3) Stercoral colitis Status: Acute (4) Dementia Code(s): F03.90 - UNSPECIFIED DEMENTIA WITHOUT BEHAVIORAL DISTURBANCE Status: Chronic (5) Diabetes type 2, controlled Code(s): E11.9 - TYPE 2 DIABETES MELLITUS WITHOUT COMPLICATIONS Status: Chronic (6) Dyslipidemia Code(s): E78.5 - HYPERLIPIDEMIA, UNSPECIFIED Status: Chronic (7) Hypertension Code(s): I10 - ESSENTIAL (PRIMARY) HYPERTENSION Status: Chronic (8) Hypothyroidism Code(s): E03.9 - HYPOTHYROIDISM, UNSPECIFIED Status: Chronic (9) Protein-calorie malnutrition, moderate Code(s): E44.0 - MODERATE PROTEIN-CALORIE MALNUTRITION Status: Chronic - Plan continue antibiotics, PT/OT, respiratory therapy, incentive spirometry, out of bed/ambulate, DVT proph w/SCDs Cont IV ABx. urine Cx shows Pseudomonas.<100,00.may be a contaminant -: C Diff negative. -: cont strict bowel regimen. -: discussed w SOUND RECORDIST. Pt will continue diet w aspiration risk-discussed w family -: restart home meds. * .Multiple admits in last months.pt w advanced demetia .Quality of life very poor.Prognosis guarded.family aware * am labs * Ok to move to medical * DNR Review of Systems - Review of Systems Other: can not be obtained due to advanced dementia - Medications/Allergies Allergies/Adverse Reactions: Allergies Allergy/AdvReac Type Severity Reaction Status Date / Time No Known Allergies Allergy Verified 02/27/19 15:57 Medications: Current Medications Acetaminophen (Tylenol) 650 mg PO Q4H PRN PRN Reason: Headache/Fever/Mild Pain (1-3) Albuterol/Ipratropium (Duoneb) 3 ml NEB [id number] PRN PRN Reason: SOB &/or Wheezing Albuterol/Ipratropium (Duoneb) 3 ml NEB [id number] [facility] Last Admin: 02/28/19 12:17 Dose: 3 ml Dextrose/Water (Dextrose 50%) 25 gm SLOW IVP PRN PRN PRN Reason: Hypoglycemia Famotidine (Pepcid) 20 mg PO DAILY [facility] Last Admin: 02/28/19 08:54 Dose: 20 mg Glucagon (Glucagon) 1 mg IM PRN PRN PRN Reason: Hypoglycemia Dextrose/Water (D5w) 1,000 mls @ 0 mls/hr IV .Q0M PRN PRN Reason: Hypoglycemia Piperacillin Sod/Tazobactam (Sod 3.375 gm/ Sodium Chloride) 100 mls @ 200 mls/ hr IVPB 0200,0800,1400,2000 [facility] Last Admin: 02/28/19 14:29 Dose: 100 mls Vancomycin HCl 750 mg/ Sodium (Chloride) 250 mls @ 250 mls/hr IVPB 1700 [facility] Last Admin: 02/27/19 16:22 Dose: Not Given Potassium Chloride/Sodium Chloride (1/2 Ns W/Kcl 20 Meq) 1,000 mls @ 100 mls/ hr IV .Q10H [facility] Magnesium Sulfate 2 gm/ Device 50 mls @ 50 mls/hr IVPB NOW [facility] Stop: 02/28/19 16:30 Last Admin: 02/28/19 14:49 Dose: 50 mls Insulin Human Lispro (Humalog) 0 units SC .MILD SLIDING SCALE PRN PRN Reason: Mild Correctional Scale Last Admin: 02/28/19 14:29 Dose: 2 unit Insulin Human Lispro (Humalog) 0 units SC .BEDTIME SLIDING SC PRN PRN Reason: Bedtime Correctional Scale Miscellaneous Medication (Pharmacy To Dose) 1 each IVPB PRN PRN PRN Reason: Pharmacy to dose Polyethylene Glycol (Miralax) 17 gm PO BID [facility] Polyethylene Glycol (Miralax) 17 gm PO NOW [facility] Stop: 02/28/19 16:30 Last Admin: 02/28/19 14:50 Dose: 17 gm Senna/Docusate Sodium (Senokot S) 2 tab PO BID [facility] Stop: 03/01/19 09:01 Last Admin: 02/28/19 14:50 Dose: 2 tab Senna/Docusate Sodium (Senokot S) 2 tab PO NOW [facility] Stop: 02/28/19 16:30 Last Admin: 02/28/19 14:53 Dose: 2 tab
[2019-02-28] MEDS ORDERED: cloNIDine 0.1 MG TAB PO PRN (16:16)
[2019-02-28] MEDS: Vancomycin HCl 750 MG in Sodium Chloride 0.9% 250 ML 250 ML IVPB SCH (18:36)
[2019-02-28] MEDS: Carvedilol 6.25 MG TAB PO SCH (20:41)
[2019-02-28] MEDS: 1/2 NS w/KCL 20 mEq 1,000 ML IV SCH (20:42)
[2019-02-28] MEDS: Atorvastatin Calcium 10 MG TAB PO SCH (20:42)
[2019-02-28] MEDS: Polyethylene Glycol 3350 17 GM Packet PO SCH (20:42)
[2019-03-01] MEDS: Piperacillin/Tazobactam 3.375 GM in Sodium Chloride 0.9% 100 ML IVPB SCH ×4 (02:33→21:13)
[2019-03-01] MEDS: 1/2 NS w/KCL 20 mEq 1,000 ML IV SCH (02:41)
[2019-03-01 05:10] LABS: #Monocytes 0.4 thou/uL (0.11-0.59); #Neutrophils 6.1 thou/uL (1.40-6.50); %Basophils 0.1 % (0.0-1.0); %Eosinophils 0.1 % (0.0-10.0); %Lymphocytes 12.9 % (21.0-51.0); %Monocytes 5.1 % (0.0-10.0); %Neutrophils 81.8 % (42.0-75.0); Hemoglobin 10.1 g/dL (12.0-16.0); Mean Corpuscular HGB CONC 32.6 g/dL (32.0-36.0); Mean Corpuscular Hemoglobin 29.9 pg (27.0-31.0); Mean Corpuscular Volume 91.7 fL (78.0-98.0); Mean Platelet Volume 7.1 fL (7.4-10.4); Platelet Count 255 thou/uL (130-400); RBC Distribution Width 13.6 % (11.5-14.5); Red Blood Cell (RBC) Count 3.38 mill/uL (4.20-5.40); White Blood Cell (WBC) Count 7.4 thou/uL (4.8-10.8)
[2019-03-01] MEDS: Levothyroxine Sodium 100 MCG TAB PO SCH (05:27)
[2019-03-01 05:31] LABS: Anion Gap 12 mmol/L (10-20); BUN (Urea Nitrogen) 30 mg/dL (9.8-20.1); Calc. Creatinine Clearance 46 mL/min (70-130); Carbon Dioxide 24 mmol/L (23-31); Chloride 114 mmol/L (98-107); Estimated GFR-MDRD Greater than 90; Glucose 119 mg/dL (83-110); Magnesium 2.1 mg/dL (1.6-2.6); Sodium 147 mmol/L (136-145)
[2019-03-01 05:35] LABS: Phosphorus 3.4 mg/dL (2.3-4.7); Potassium 2.5 mmol/L (3.5-5.1)
[2019-03-01] MEDS ORDERED: Potassium Chloride 40 MEQ in Sodium Chloride 0.45% 1,000 ML IV SCH (06:00)
[2019-03-01] MEDS: Potassium Chloride 20 MEQ in Premix Bag 1 BAG IVPB SCH ×2 (06:25→10:27)
[2019-03-01] MEDS: Polyethylene Glycol 3350 17 GM Packet PO SCH ×2 (09:07→21:14)
[2019-03-01] MEDS: Carvedilol 6.25 MG TAB PO SCH ×2 (09:10→21:13)
[2019-03-01] MEDS: Senokot S 8.6-50 MG TAB PO SCH (09:10)
[2019-03-01] MEDS: Folic Acid 1 MG TAB PO SCH (09:10)
[2019-03-01] MEDS: Famotidine 20 MG TAB PO SCH (09:10)
[2019-03-01] MEDS: Lisinopril 20 MG TAB PO SCH (09:11)
--- NOTE | 2019-03-01 13:49 | PQF ---
DATE: 03-01-19 ATTN: DR. VASHTI RONQUILLO Please exercise your independent, professional judgment in responding to the clarification form. Clinical indicators are provided on the bottom of this form for your review Please check appropriate box(s): Conflicting documentation was noted in the Medical Record, please clarify if patient is being treated/monitored for: [ X ] SEVERE CALORIE MALNUTRITION [ ] MODERATE CALORIE MALNUTRITION [ ] Other diagnosis [ ] Unable to determine In addition, please specify: Present on Admission (POA): [ X] Yes [ ] No [ ] Unable to determine For continuity of documentation, please document condition throughout progress notes and discharge summary. Thank You. CLINICAL INDICATORS - SIGNS / SYMPTOMS/ LABS BMI: 16.0 ER: HX MUSCLE WASTING AND ATROPHY, MUSCLE WEAKNESS H&P: POOR APPETITE, VERY ILL APPEARING, CACHECTIC WITH SEVERE MUSCLE WASTING , AT LEAST MODERATE PROTEIN CALORIE MALNUTRITION CONSULT NOTE DR. LOGAN 02-28-19: SEVERE PROTEIN CALORIE MALNUTRITION, HORRENDOUS DECONDITIONING AND DEBILITY SUCTION DREDGE DUMPING SUPERVISOR CONSULT 02-28-19: unstageable pressure ulcer to sacrococcygeal; temporal and buccal wasting observed RISK FACTORS: ER: HX OF NH, CVA, ENCEPHALOPATHY, MUSCLE WEAKNESS, MUSCLE WASTING AND ATROPHY, LACK OF COORDINATION, COGNITIVE COMMUNICATION DEFICIT TREATMENT: SUCTION DREDGE DUMPING SUPERVISOR CONSULT 02-28-19: 1. Recommend a Heart Healthy/Consistent Carb (1800 sonny) diet type with safest textures per MEDICAL ADMINISTRATIVE 2. RD to order Sugar-Free Mighty Shakes TID to aid with intake 3. Provide bowel regimen PRN (This form is maintained as a part of the permanent medical record) 2014 [employer] All Rights Reserved [email or web address] Office: [phone] [facility]
--- NOTE | 2019-03-01 14:06 | PQF ---
DATE: 03-01-19 ATTN: DR. VASHTI RONQUILLO Please exercise your independent, professional judgment in responding to the clarification form. Clinical indicators are provided on the bottom of this form for your review Please check appropriate box(s) to clarify if the following diagnosis has been ruled in or ruled out: SEVERE SEPSIS [ X ] Ruled in diagnosis [X ] Continue to treat [ ] Resolved [ ] Ruled out diagnosis [ ] Other diagnosis [ ] Unable to determine In addition, please specify: Present on Admission (POA): [ X] Yes [ ] No [ ] Unable to determine For continuity of documentation, please document condition throughout progress notes and discharge summary. Thank You. CLINICAL INDICATORS - SIGNS / SYMPTOMS / LABS ER DX: PNEUMONIA W HYPOXIA, AMS, GI BLEED H&P: DEMENTIA AND LETHARGY, HEALTH ASSOCIATED PNEUMONIA CONSULT NOTE DR. LOGAN 02-28-19: ACUTE HYPOXIC RESPIRATORY FAILURE, PNA, FECAL IMPACTION, SEVERE SEPSIS LACTIC ACID 02-27-19: 3.9 ER: RR: 26, 35, 25, 27, 24 ER: TEMP: 98.4 RECTAL, 99.4 RECTAL RISK FACTORS: ER: FROM RETIREMENT, DEMENTIA, HX CVA, ENCEPHALOPATHY, PU SACR[place] REGION EXTREMES OF AGE TREATMENTS: ER: VANCOMYCIN IV, LEVAQUIN IV, ZOSYN IV, NS IVF (This form is maintained as a part of the permanent medical record) 2014 [employer] All Rights Reserved [email or web address] Office: [phone] [facility]ALTH[facility]
[2019-03-01] MEDS: D5 IV SCH (14:17)
[2019-03-01] MEDS: POTASSIUM CHLORIDE IV SCH (14:17)
[2019-03-01] MEDS: 1/4 NS IV SCH (14:17)
--- NOTE | 2019-03-01 15:15 | PDOC.PN ---
- Subjective Encounter Start Date: 03/01/19 Encounter Start Time: 15:14 Subjective: family at bedside & reports poor appetite -: she started to cough after few bites so they stopped feeding her -: and son at bedside also - Objective Resuscitation Status - Order Detail: 02/27/19 14:36 Resuscitation Status Routine Resuscitation Status: DNAR: NO Resuscitation Discussed with: Discussed with patient's daughter NATALIO Reviewed: Yes Vital Signs & Weight: Vital Signs (12 hours) Temp Pulse Resp BP Pulse Ox 03/01/19 14:15 80 22 H 03/01/19 09:11 150/84 H 03/01/19 09:10 150/84 H 03/01/19 07:00 97.5 F L 75 22 H 98 03/01/19 06:54 92 L 03/01/19 06:52 78 20 92 L Weight Admit Weight 102 lb 9.6 oz Weight 102 lb 9.6 oz Most Recent Monitor Data Heart Rate from ECG 81 NIBP 129/61 NIBP BP-Mean 83 Respiration from ECG 20 SpO2 96 I&O: 02/28/19 03/01/19 03/02/19 06:59 06:59 06:59 Intake Total 775 1320 Output Total 500 350 Balance 275 970 Result Diagrams: 03/01/19 04:29 03/01/19 04:29 Additional Labs: Accuchecks 03/01/19 03/01/19 02/28/19 11:52 05:31 20:10 POC Glucose 112 H 120 H 88 02/28/19 18:46 POC Glucose 110 Microbiology 02/27/19 15:35 Stool C. difficile GDH Antigen & Toxins - Final 02/27/19 11:35 Stool - Pending Stool Occult Blood (KEV) - Final 02/27/19 13:51 Venous blood - Right Hand Blood Culture - Preliminary Specimen has been received and culture in progress. No Growth to date. 02/27/19 12:22 Venous blood - Right Arm Blood Culture - Preliminary Coagulase Neg Staphylococcus 02/27/19 11:53 Urine vasquez catheter Urine Culture - Preliminary Pseudomonas aeruginosa Phys Exam - Physical Examination Constitutional: NAD wakes up easily. HEENT: PERRLA, moist MMs, sclera anicteric, oral pharynx no lesions dry mucosa.temoral wasting Neck: no nodes, no JVD, supple, full ROM Respiratory: no wheezing, no rales, no rhonchi, clear to auscultation bilateral Cardiovascular: RRR, no significant murmur Gastrointestinal: soft, non-tender, no distention, positive bowel sounds Musculoskeletal: no edema, pulses present Neurological: non-focal, normal sensation, moves all 4 limbs Psychiatric: normal affect Skin: no rash Dx/Plan (1) HCAP (healthcare-associated pneumonia) Code(s): J18.9 - PNEUMONIA, UNSPECIFIED ORGANISM Status: Acute (2) Hypernatremia Code(s): E87.0 - HYPEROSMOLALITY AND HYPERNATREMIA Status: Acute (3) Hypokalemia Code(s): E87.6 - HYPOKALEMIA Status: Acute (4) Fecal impaction in rectum Code(s): K56.41 - FECAL IMPACTION Status: Acute Comment: improved w Enema (5) Stercoral colitis Status: Acute (6) Sepsis Code(s): A41.9 - SEPSIS, UNSPECIFIED ORGANISM Status: Acute Comment: improving (7) Dementia Code(s): F03.90 - UNSPECIFIED DEMENTIA WITHOUT BEHAVIORAL DISTURBANCE Status: Chronic (8) Diabetes type 2, controlled Code(s): E11.9 - TYPE 2 DIABETES MELLITUS WITHOUT COMPLICATIONS Status: Chronic (9) Dyslipidemia Code(s): E78.5 - HYPERLIPIDEMIA, UNSPECIFIED Status: Chronic (10) Hypertension Code(s): I10 - ESSENTIAL (PRIMARY) HYPERTENSION Status: Chronic (11) Hypothyroidism Code(s): E03.9 - HYPOTHYROIDISM, UNSPECIFIED Status: Chronic (12) Severe protein-calorie malnutrition Code(s): E43 - UNSPECIFIED SEVERE PROTEIN-CALORIE MALNUTRITION Status: Chronic - Plan plan discussed w/ family, continue antibiotics, PT/OT, respiratory therapy, incentive spirometry, out of bed/ambulate, DVT proph w/SCDs clinically better.cont ABx -: high risk for aspiration .follow diet as per MECHANICAL ENGINEERING TECHNICIAN recs.family aware of risk -: palliative care team consulted to discuss goals of care -: pt w advanced dementia & multiple hospitalizations.guarded prognosis -: monitor lytes ec.encourage OT,PT and PO intake, * .change IVF to D5 1/4 NS w KCL for low Potassium and high sodium * am labs Review of Systems - Medications/Allergies Allergies/Adverse Reactions: Allergies Allergy/AdvReac Type Severity Reaction Status Date / Time No Known Allergies Allergy Verified 02/27/19 15:57 Medications: Current Medications Acetaminophen (Tylenol) 650 mg PO Q4H PRN PRN Reason: Headache/Fever/Mild Pain (1-3) Albuterol/Ipratropium (Duoneb) 3 ml NEB [id number] PRN PRN Reason: SOB &/or Wheezing Albuterol/Ipratropium (Duoneb) 3 ml NEB [id number] [facility] Last Admin: 03/01/19 14:15 Dose: 3 ml Atorvastatin Calcium (Lipitor) 10 mg PO HS [facility] Last Admin: 02/28/19 20:42 Dose: 10 mg Carvedilol (Coreg) 12.5 mg PO BID [facility] Last Admin: 03/01/19 09:10 Dose: 12.5 mg Clonidine (Catapres) 0.1 mg PO Q6HR PRN PRN Reason: Hypertension Dextrose/Water (Dextrose 50%) 25 gm SLOW IVP PRN PRN PRN Reason: Hypoglycemia Famotidine (Pepcid) 20 mg PO DAILY [facility] Last Admin: 03/01/19 09:10 Dose: 20 mg Folic Acid (Folvite) 1 mg PO DAILY [facility] Last Admin: 03/01/19 09:10 Dose: 1 mg Glucagon (Glucagon) 1 mg IM PRN PRN PRN Reason: Hypoglycemia Dextrose/Water (D5w) 1,000 mls @ 0 mls/hr IV .Q0M PRN PRN Reason: Hypoglycemia Piperacillin Sod/Tazobactam (Sod 3.375 gm/ Sodium Chloride) 100 mls @ 200 mls/ hr IVPB 0200,0800,1400,2000 [facility] Last Admin: 03/01/19 15:10 Dose: 100 mls Vancomycin HCl 750 mg/ Sodium (Chloride) 250 mls @ 250 mls/hr IVPB 1700 [facility] Last Admin: 02/28/19 18:36 Dose: 250 mls Potassium Chloride 30 meq/ (Dextrose/Sodium Chloride) 1,015 mls @ 75 mls/hr IV .[id number] [facility] Last Admin: 03/01/19 14:17 Dose: 1,015 mls Insulin Human Lispro (Humalog) 0 units SC .MILD SLIDING SCALE PRN PRN Reason: Mild Correctional Scale Last Admin: 02/28/19 14:29 Dose: 2 unit Insulin Human Lispro (Humalog) 0 units SC .BEDTIME SLIDING SC PRN PRN Reason: Bedtime Correctional Scale Lactulose (Lactulose) 30 gm PO TID PRN PRN Reason: Constipation Levothyroxine Sodium (Synthroid) 200 mcg PO 0600 [facility] Last Admin: 03/01/19 05:27 Dose: 200 mcg Lisinopril (Zestril) 20 mg PO DAILY [facility] Last Admin: 03/01/19 09:11 Dose: 20 mg Miscellaneous Medication (Pharmacy To Dose) 1 each IVPB PRN PRN PRN Reason: Pharmacy to dose Polyethylene Glycol (Miralax) 17 gm PO BID [facility] Last Admin: 03/01/19 09:07 Dose: 17 gm
[2019-03-01 17:00] LABS: Vancomycin, Trough 7.2 ug/mL
--- NOTE | 2019-03-01 17:08 | PRG ---
DATE OF SERVICE: 03/01/2019 SERVICE: Pulmonary Medicine. INTERVAL HISTORY: The patient is doing great from respiratory standpoint. She cannot provide any additional elements of the history given her advanced cognitive impairment. She indicates that she is not having any chest discomfort and denies having shortness of breath. PHYSICAL EXAMINATION: VITAL SIGNS: Afebrile, pulse 80, blood pressure 150/84, respirations 22, saturation 98% on 4 L nasal cannula. GENERAL: The patient is awake and alert, in no apparent distress. LUNGS: Decent air entry with no prolonged expiratory phase or wheezing. HEART: Normal rate and regular. ABDOMEN: Soft, nontender, nondistended. Bowel sounds are positive. MUSCULOSKELETAL: No cyanosis or clubbing. There is no pitting in the bilateral lower extremities. GENITOURINARY: Nelson catheter in place. NEUROLOGIC: Grossly nonfocal. LABORATORY DATA: WBC 7.4, hemoglobin 10.1, platelets 255,000. Potassium 2.5, sodium 147, chloride 114. Basic metabolic profile is otherwise unremarkable. Magnesium and phosphorous fall within normal limits. Urinalysis is unremarkable. Blood culture is growing coag-negative Staph in one out of two. C. diff antigen and toxin are negative. Urine cultures are growing Pseudomonas, and presumptive Enterococcus species, all of which are pansensitive. ASSESSMENT: 1. Acute hypoxic respiratory failure. 2. Healthcare-associated pneumonia in the left lower lobe. 3. Fecal impaction, pronounced. 4. Severe sepsis. DISCUSSION AND PLAN: We are aggressively replacing the patient's potassium. Magnesium and phosphorous fall within the normal limits, so this will not be replaced today. We will stop checking those values. We will continue with a basic metabolic profile in the morning. From a hemodynamic and respiratory perspective, she remains quite stable. At this point, she has no further requirements for inpatient Pulmonary/Critical Care opinion, and I will sign off. I do believe that outpatient hospice needs to be considered as even under the best circumstances, she likely has less than 6 months to live given her advanced dementia, horrendous debility, severe protein-calorie malnutrition, inability to tolerate significant p.o. intake. Job ID: [id number]
[2019-03-01] MEDS: Vancomycin HCl 750 MG in Sodium Chloride 0.9% 250 ML 250 ML IVPB SCH (17:32)
[2019-03-01] MEDS ORDERED: Vancomycin HCl 1 GM in Premix Bag 1 BAG IVPB SCH (19:00)
[2019-03-01] MEDS: Atorvastatin Calcium 10 MG TAB PO SCH (21:13)
[2019-03-02] MEDS: Piperacillin/Tazobactam 3.375 GM in Sodium Chloride 0.9% 100 ML IVPB SCH ×4 (02:52→20:01)
--- NOTE | 2019-03-02 02:59 | CON ---
DATE OF CONSULTATION: 03/01/2019 REASON FOR CONSULTATION: Abdominal bloating, swelling, and fecal impaction. HISTORY OF PRESENT ILLNESS: Ms. Ledy Alonzo is an 88-year-old fragile female, brought to the ER because of decreasing oral intake and altered mental status. On admission, she was found to have evidence of fecal impaction by CAT scan. On admission, the patient's abdomen was distended a little. However, since her admission, she has been given MiraLAX, Fleet Enemas, and also lactulose. I did speak to her nurse Herman Ewa and she tells me that the patient had 6 to 7 stools yesterday. When I tried to examine her and do the rectal exam, after diaper was removed, she had large amount of stool in the diaper. The patient has a history of dementia and most of the history could not be obtained. Most of the history is obtained by going through admitting history and physical and on records by Dr. Willie Belle. The patient also has a daughter who is in the room. She tells me she also has had a fecal impaction in the past before. She is in a group home facility and she is supposed to take the laxative. Because of her decreasing oral intake, she was not taking laxative recently. No history of abdominal pain. No nausea. No vomiting. A pulmonary consult was done by Dr. Belle because of possibility of pneumonia as there was some opacity seen in the left lower lobe. However, it is not very clear as she has atelectasis and had pneumonia. The patient is actually trying to have little bit of food by mouth with any coughing and choking. No relevant history. ALLERGIES: NO DRUG ALLERGIES. MEDICAL ILLNESS: 1. Advanced dementia. 2. Hypertension. 3. Dyslipidemia. 4. Type 2 diabetes mellitus. 5. Hypothyroidism. 6. Past history of CVA. 7. Decubitus ulcer over the back. PAST SURGICAL HISTORY: She has had some thyroid procedure and what was done is unclear. SOCIAL HISTORY: The patient is a group home resident. No prior smoking or alcohol intake. MEDICATION LIST: Reviewed. REVIEW OF SYSTEMS: Not able to obtain. PHYSICAL EXAMINATION: GENERAL: Revealed a fragile looking elderly female. Does try to verbalize, but not able to give any history. VITAL SIGNS: Afebrile. Pulse is 80. Blood pressure is 150/84. HEENT: Conjunctivae clear. NECK: Supple. No adenitis or thyromegaly noted. CARDIOVASCULAR SYSTEM: First and second heart sounds heard. LUNGS: Clear to auscultation. ABDOMEN: Abdomen is soft. Abdomen is nondistended. Abdomen is nontender. No organomegaly or masses. RECTAL: A rectal exam is done at bedside shows hard stools in the rectal vault, which were easily broken up using my finger. EXTREMITIES: Reveal no edema. CLINICAL IMPRESSION: An 88-year-old female with, 1. Dementia, presented with altered mental status and decreased oral intake. The patient had a CAT scan shows fecal impaction. However, her impaction has been improving with her laxatives. 2. Dementia. 3. Hypothyroidism. 4. Diabetes. 5. Hypertension. 6. Hyperlipidemia. LABORATORY DATA: Shows WBC 7400, hemoglobin 10.1, hematocrit 31, MCV 91.7, platelet count 255,000, polymorphs 81, lymphocytes 12. Chemistries; sodium 147, potassium 2.5, chloride 114, bicarb 24, BUN is 30, creatinine 0.62, glucose 119, calcium 8, phosphorus is 3.4, magnesium 2.1. CLINICAL IMPRESSION: Fecal impaction appears to be improving. She has received Fleet Enema, MiraLAX, and lactulose. The patient had multiple stools yesterday and she had a very large stool in the diaper today. A rectal exam done showed large amount of solid stool, not impaction. The stools were broken up with using the finger. RECOMMENDATIONS: I will continue the bowel regimen consisting of MiraLAX and lactulose. Also may need p.r.n. Fleet Enemas. Job ID: [id number]
[2019-03-02] MEDS: Vancomycin HCl 1 GM in Premix Bag 1 BAG IVPB SCH ×2 (03:35→14:48)
[2019-03-02] MEDS: Levothyroxine Sodium 100 MCG TAB PO SCH (04:49)
[2019-03-02 06:09] LABS: #Lymphocytes 1.2 thou/uL (1.20-3.40); #Monocytes 0.5 thou/uL (0.11-0.59); #Neutrophils 4.2 thou/uL (1.40-6.50); %Basophils 0.2 % (0.0-1.0); %Eosinophils 0.4 % (0.0-10.0); %Lymphocytes 20.1 % (21.0-51.0); %Monocytes 7.8 % (0.0-10.0); %Neutrophils 71.5 % (42.0-75.0); Hemoglobin 10.5 g/dL (12.0-16.0); Mean Corpuscular HGB CONC 31.7 g/dL (32.0-36.0); Mean Corpuscular Hemoglobin 29.4 pg (27.0-31.0); Mean Corpuscular Volume 92.8 fL (78.0-98.0); Mean Platelet Volume 6.9 fL (7.4-10.4); Platelet Count 248 thou/uL (130-400); RBC Distribution Width 13.5 % (11.5-14.5); Red Blood Cell (RBC) Count 3.57 mill/uL (4.20-5.40); White Blood Cell (WBC) Count 5.9 thou/uL (4.8-10.8)
[2019-03-02] MEDS: HumaLOG 300 UNITS/3 ML VIAL SC PRN ×3 (06:13→20:00)
[2019-03-02 06:39] LABS: Anion Gap 13 mmol/L (10-20); BUN (Urea Nitrogen) 29 mg/dL (9.8-20.1); Calc. Creatinine Clearance 44 mL/min (70-130); Carbon Dioxide 21 mmol/L (23-31); Chloride 116 mmol/L (98-107); Estimated GFR-MDRD 86; Glucose 225 mg/dL (83-110); Sodium 147 mmol/L (136-145)
[2019-03-02] MEDS: 1/4 NS IV SCH ×2 (06:55→08:38)
[2019-03-02] MEDS: D5 IV SCH ×2 (06:55→08:38)
[2019-03-02] MEDS: POTASSIUM CHLORIDE IV SCH ×2 (06:55→08:38)
[2019-03-02] MEDS: Famotidine 20 MG TAB PO SCH (08:35)
[2019-03-02] MEDS: Carvedilol 6.25 MG TAB PO SCH ×2 (08:35→19:59)
[2019-03-02] MEDS: Lisinopril 20 MG TAB PO SCH (08:36)
[2019-03-02] MEDS: Folic Acid 1 MG TAB PO SCH (08:36)
[2019-03-02] MEDS: Polyethylene Glycol 3350 17 GM Packet PO SCH ×2 (08:37→20:00)
[2019-03-02] MEDS ORDERED: Potassium Chloride 20 MEQ in Premix Bag 1 BAG IVPB SCH (09:15)
--- NOTE | 2019-03-02 13:27 | PDOC.PN ---
- Subjective Encounter Start Date: 03/02/19 Encounter Start Time: 13:25 Subjective: pt more awake today and reports she feels "OK "in weak voice -: family at bedside & report coughing w feeds -: having soft stools now. - Objective Resuscitation Status - Order Detail: 02/27/19 14:36 Resuscitation Status Routine Resuscitation Status: DNAR: NO Resuscitation Discussed with: Discussed with patient's daughter NATALIO Reviewed: Yes Vital Signs & Weight: Vital Signs (12 hours) Temp Pulse Resp BP BP Pulse Ox 03/02/19 12:24 67 18 149/91 H 94 L 03/02/19 08:35 150/84 H 03/02/19 07:24 97.4 F L 67 14 146/68 H 93 L 03/02/19 07:22 94 L 03/02/19 07:04 71 16 Weight Admit Weight 102 lb 9.6 oz Weight 102 lb 9.6 oz Most Recent Monitor Data Heart Rate from ECG 81 NIBP 129/61 NIBP BP-Mean 83 Respiration from ECG 20 SpO2 96 I&O: 03/01/19 03/02/19 03/03/19 06:59 06:59 06:59 Intake Total 1320 850 Output Total 350 200 Balance 970 650 Result Diagrams: 03/02/19 05:24 03/02/19 05:24 Additional Labs: Accuchecks 03/02/19 03/02/19 03/01/19 12:13 06:07 20:34 POC Glucose 303 H 243 H 244 H 03/01/19 16:48 POC Glucose 178 H Microbiology 02/27/19 15:35 Stool C. difficile GDH Antigen & Toxins - Final 02/27/19 12:22 Venous blood - Right Arm Blood Culture - Final Coagulase Neg Staphylococcus 02/27/19 11:35 Stool - Pending Stool Occult Blood (KEV) - Final 02/27/19 13:51 Venous blood - Right Hand Blood Culture - Preliminary NO GROWTH AT 48 HOURS 02/27/19 11:53 Urine vasquez catheter Urine Culture - Preliminary Pseudomonas aeruginosa Presumptive Enterococcus sp. Laboratory Tests 02/27/19 02/28/19 03/01/19 12:23 04:20 04:29 Sodium 143 147 H Potassium 3.9 3.2 L 2.5 L* 03/02/19 05:24 Sodium 147 H Potassium 3.0 L Phys Exam - Physical Examination pale,weak,frail HEENT: PERRLA, sclera anicteric, oral pharynx no lesions Mucosa dry Neck: no nodes, no JVD, supple, full ROM Respiratory: no wheezing, no rales, no rhonchi, clear to auscultation bilateral Cardiovascular: RRR, no significant murmur Gastrointestinal: soft, non-tender, no distention, positive bowel sounds mild distention Musculoskeletal: no edema, pulses present, edema present Neurological: non-focal, normal sensation, moves all 4 limbs Psychiatric: normal affect, A&O x 3 Deviation from normal: falls asleep easily Skin: no rash Dx/Plan (1) HCAP (healthcare-associated pneumonia) Code(s): J18.9 - PNEUMONIA, UNSPECIFIED ORGANISM Status: Acute Comment: on broad spectrum IV ABx (2) Hypernatremia Code(s): E87.0 - HYPEROSMOLALITY AND HYPERNATREMIA Status: Acute (3) Hypokalemia Code(s): E87.6 - HYPOKALEMIA Status: Acute (4) Fecal impaction in rectum Code(s): K56.41 - FECAL IMPACTION Status: Acute Comment: improved w Enema (5) Stercoral colitis Status: Acute (6) Sepsis Code(s): A41.9 - SEPSIS, UNSPECIFIED ORGANISM Status: Acute Comment: improving (7) Dementia Code(s): F03.90 - UNSPECIFIED DEMENTIA WITHOUT BEHAVIORAL DISTURBANCE Status: Chronic (8) Diabetes type 2, controlled Code(s): E11.9 - TYPE 2 DIABETES MELLITUS WITHOUT COMPLICATIONS Status: Chronic (9) Dyslipidemia Code(s): E78.5 - HYPERLIPIDEMIA, UNSPECIFIED Status: Chronic (10) Hypertension Code(s): I10 - ESSENTIAL (PRIMARY) HYPERTENSION Status: Chronic (11) Hypothyroidism Code(s): E03.9 - HYPOTHYROIDISM, UNSPECIFIED Status: Chronic (12) Severe protein-calorie malnutrition Code(s): E43 - UNSPECIFIED SEVERE PROTEIN-CALORIE MALNUTRITION Status: Chronic - Plan plan discussed w/ family, vasquez catheter, continue antibiotics, PT/OT, respiratory therapy, incentive spirometry, out of bed/ambulate, DVT proph w/SCDs family aware of risk of aspiration w current modified diet.PRINTING ENGINEER following -: cont ABx. slow clinical improvement -: appreciate GI recs.cont bowel regimen as below w lactulose,miralax -: add OT,PT -: will get wound care recs regarding progress /improvemnt of decubitus. * .change IVF to D5W for persistant hypernatremia. * add low dose Lantus to cover for resultant hyperglycemia * replace and recheck potassium * am labs * guarded prognosis. * PCT following as well Review of Systems - Review of Systems Other: can not be reliably obtained due to Weakness and somnolence - Medications/Allergies Allergies/Adverse Reactions: Allergies Allergy/AdvReac Type Severity Reaction Status Date / Time No Known Allergies Allergy Verified 02/27/19 15:57 Medications: Current Medications Acetaminophen (Tylenol) 650 mg PO Q4H PRN PRN Reason: Headache/Fever/Mild Pain (1-3) Albuterol/Ipratropium (Duoneb) 3 ml NEB [id number] PRN PRN Reason: SOB &/or Wheezing Albuterol/Ipratropium (Duoneb) 3 ml NEB [id number] [facility] Last Admin: 03/02/19 07:04 Dose: 3 ml Atorvastatin Calcium (Lipitor) 10 mg PO HS [facility] Last Admin: 03/01/19 21:13 Dose: 10 mg Carvedilol (Coreg) 12.5 mg PO BID [facility] Last Admin: 03/02/19 08:35 Dose: 12.5 mg Clonidine (Catapres) 0.1 mg PO Q6HR PRN PRN Reason: Hypertension Dextrose/Water (Dextrose 50%) 25 gm SLOW IVP PRN PRN PRN Reason: Hypoglycemia Famotidine (Pepcid) 20 mg PO DAILY [facility] Last Admin: 03/02/19 08:35 Dose: 20 mg Folic Acid (Folvite) 1 mg PO DAILY [facility] Last Admin: 03/02/19 08:36 Dose: 1 mg Glucagon (Glucagon) 1 mg IM PRN PRN PRN Reason: Hypoglycemia Dextrose/Water (D5w) 1,000 mls @ 0 mls/hr IV .Q0M PRN PRN Reason: Hypoglycemia Piperacillin Sod/Tazobactam (Sod 3.375 gm/ Sodium Chloride) 100 mls @ 200 mls/ hr IVPB 0200,0800,1400,2000 [facility] Last Admin: 03/02/19 08:34 Dose: 100 mls Vancomycin HCl 1 gm/ Device 200 mls @ 200 mls/hr IVPB 0300,1500 [facility] Last Admin: 03/02/19 03:35 Dose: 200 mls Potassium Chloride 30 meq/ (Dextrose/Water) 1,015 mls @ 75 mls/hr IV .[id number] [facility] Last Admin: 03/02/19 11:06 Dose: 1,015 mls Insulin Glargine 5 units/ (Miscellaneous Medication) 0.05 mls @ 0 mls/hr SC HS [facility] Insulin Glargine 5 units/ (Miscellaneous Medication) 0.05 mls @ 0 mls/hr SC QAM [facility] Insulin Human Lispro (Humalog) 0 units SC .MILD SLIDING SCALE PRN PRN Reason: Mild Correctional Scale Last Admin: 03/02/19 12:14 Dose: 5 unit Insulin Human Lispro (Humalog) 0 units SC .BEDTIME SLIDING SC PRN PRN Reason: Bedtime Correctional Scale Lactulose (Lactulose) 30 gm PO TID PRN PRN Reason: Constipation Levothyroxine Sodium (Synthroid) 200 mcg PO 0600 [facility] Last Admin: 03/02/19 04:49 Dose: 200 mcg Lisinopril (Zestril) 20 mg PO DAILY [facility] Last Admin: 03/02/19 08:36 Dose: 20 mg Miscellaneous Medication (Pharmacy To Dose) 1 each IVPB PRN PRN PRN Reason: Pharmacy to dose Polyethylene Glycol (Miralax) 17 gm PO BID [facility] Last Admin: 03/02/19 08:37 Dose: 17 gm
[2019-03-02] MEDS: Atorvastatin Calcium 10 MG TAB PO SCH (20:00)
[2019-03-02] MEDS: Insulin Glargine 5 UNITS in Pre-Filled Syringe SC SCH (20:00)
[2019-03-03] MEDS: Piperacillin/Tazobactam 3.375 GM in Sodium Chloride 0.9% 100 ML IVPB SCH ×4 (02:31→19:40)
[2019-03-03] MEDS: Vancomycin HCl 1 GM in Premix Bag 1 BAG IVPB SCH ×3 (03:18→16:51)
[2019-03-03] MEDS: Levothyroxine Sodium 100 MCG TAB PO SCH (05:11)
[2019-03-03 06:33] LABS: #Basophils 0.1 thou/uL (0.0-0.2); #Eosinphils 0.1 thou/uL (0.0-0.7); #Lymphocytes 1.4 thou/uL (1.20-3.40); #Monocytes 0.5 thou/uL (0.11-0.59); #Neutrophils 4.1 thou/uL (1.40-6.50); %Basophils 0.9 % (0.0-1.0); %Eosinophils 0.9 % (0.0-10.0); %Monocytes 7.5 % (0.0-10.0); %Neutrophils 67.6 % (42.0-75.0); Hemoglobin 9.9 g/dL (12.0-16.0); Mean Corpuscular HGB CONC 31.9 g/dL (32.0-36.0); Mean Corpuscular Hemoglobin 29.1 pg (27.0-31.0); Mean Corpuscular Volume 91.4 fL (78.0-98.0); Mean Platelet Volume 6.9 fL (7.4-10.4); Platelet Count 232 thou/uL (130-400); RBC Distribution Width 13.1 % (11.5-14.5); Red Blood Cell (RBC) Count 3.39 mill/uL (4.20-5.40); White Blood Cell (WBC) Count 6.1 thou/uL (4.8-10.8)
[2019-03-03 06:53] LABS: Anion Gap 11 mmol/L (10-20); BUN (Urea Nitrogen) 22 mg/dL (9.8-20.1); Calc. Creatinine Clearance 49 mL/min (70-130); Calcium 7.7 mg/dL (7.8-10.44); Carbon Dioxide 22 mmol/L (23-31); Chloride 116 mmol/L (98-107); Estimated GFR-MDRD Greater than 90; Glucose 193 mg/dL (83-110); Sodium 146 mmol/L (136-145)
[2019-03-03 07:05] LABS: Potassium 2.9 mmol/L (3.5-5.1)
[2019-03-03] MEDS: Lisinopril 20 MG TAB PO SCH (08:49)
[2019-03-03] MEDS: Carvedilol 6.25 MG TAB PO SCH ×2 (08:49→19:40)
[2019-03-03] MEDS: Famotidine 20 MG TAB PO SCH (08:49)
[2019-03-03] MEDS: Folic Acid 1 MG TAB PO SCH (08:49)
[2019-03-03] MEDS: Insulin Glargine 5 UNITS in Pre-Filled Syringe SC SCH ×2 (08:51→19:41)
[2019-03-03] MEDS: Acetaminophen 325 MG TAB PO PRN (08:55)
[2019-03-03] MEDS: Polyethylene Glycol 3350 17 GM Packet PO SCH ×2 (09:51→19:23)
[2019-03-03] MEDS ORDERED: Magnesium 2 GM/50 ML 2 GM in Premix Bag 1 BAG IVPB SCH (11:00)
[2019-03-03] MEDS ORDERED: Potassium Chloride 20 MEQ TAB PO SCH (11:00)
--- NOTE | 2019-03-03 11:55 | EKG ---
Test Reason : Blood Pressure : / mmHG Vent. Rate : 081 BPM Atrial Rate : 081 BPM P-R Int : 142 ms QRS Dur : 078 ms QT Int : 398 ms P-R-T Axes : 060 -55 005 degrees QTc Int : 462 ms Normal sinus rhythm Left anterior fascicular block T wave abnormality, consider anterolateral ischemia Abnormal ECG T wave inversion V4-V6 No ST elevation/DC Confirmed by KRISTINA Griffin, MALORIE ([id number]), pictures editor ALO PICKENS ([id number]) on 03/03/2019 11:55:12 AM Referred By: Confirmed By:MALORIE ACEVEDO M.D.
--- NOTE | 2019-03-03 13:34 | PDOC.PN ---
- Subjective Encounter Start Date: 03/03/19 Encounter Start Time: 13:32 Subjective: asleep. no new events - Objective Resuscitation Status - Order Detail: 02/27/19 14:36 Resuscitation Status Routine Resuscitation Status: DNAR: NO Resuscitation Discussed with: Discussed with patient's daughter NATALIO Reviewed: Yes Vital Signs & Weight: Vital Signs (12 hours) Temp Pulse Resp BP Pulse Ox 03/03/19 12:41 74 16 96 03/03/19 08:00 97.9 F 73 20 153/82 H 92 L 03/03/19 07:27 89 L 03/03/19 06:56 95 03/03/19 06:54 71 16 96 03/03/19 02:40 94 L Weight Admit Weight 102 lb 9.6 oz Weight 102 lb 9.6 oz Most Recent Monitor Data Heart Rate from ECG 81 NIBP 129/61 NIBP BP-Mean 83 Respiration from ECG 20 SpO2 96 I&O: 03/02/19 03/03/19 03/04/19 06:59 06:59 06:59 Intake Total 850 Output Total 200 Balance 650 Result Diagrams: 03/03/19 05:54 03/03/19 05:54 Additional Labs: Accuchecks 03/03/19 03/03/19 03/02/19 11:37 05:04 19:53 POC Glucose 165 H 212 H 357 H 03/02/19 17:02 POC Glucose 363 H Microbiology 02/27/19 15:35 Stool C. difficile GDH Antigen & Toxins - Final 02/27/19 12:22 Venous blood - Right Arm Blood Culture - Final Coagulase Neg Staphylococcus 02/27/19 11:53 Urine vasquez catheter Urine Culture - Final Pseudomonas aeruginosa Enterococcus faecalis 02/27/19 11:35 Stool - Pending Stool Occult Blood (KEV) - Final 02/27/19 13:51 Venous blood - Right Hand Blood Culture - Preliminary NO GROWTH AT 48 HOURS Laboratory Tests 02/28/19 03/01/19 03/02/19 04:20 04:29 05:24 Sodium 143 147 H 147 H 03/03/19 05:54 Sodium 146 H Phys Exam - Physical Examination Constitutional: NAD asleep dry mucosa Neck: no JVD Respiratory: no wheezing, no rales, no rhonchi, clear to auscultation bilateral Cardiovascular: RRR, no significant murmur Gastrointestinal: soft, non-tender, no distention, positive bowel sounds Musculoskeletal: no edema, pulses present Neurological: non-focal, normal sensation, moves all 4 limbs Skin: no rash Dx/Plan (1) HCAP (healthcare-associated pneumonia) Code(s): J18.9 - PNEUMONIA, UNSPECIFIED ORGANISM Status: Acute Comment: on broad spectrum IV ABx (2) Hypernatremia Code(s): E87.0 - HYPEROSMOLALITY AND HYPERNATREMIA Status: Acute Comment: cont D5W w KCl (3) Hypokalemia Code(s): E87.6 - HYPOKALEMIA Status: Acute Comment: replace and recheck (4) Fecal impaction in rectum Code(s): K56.41 - FECAL IMPACTION Status: Acute Comment: improved w Enema (5) Stercoral colitis Status: Acute (6) Sepsis Code(s): A41.9 - SEPSIS, UNSPECIFIED ORGANISM Status: Acute Comment: improving (7) Dementia Code(s): F03.90 - UNSPECIFIED DEMENTIA WITHOUT BEHAVIORAL DISTURBANCE Status: Chronic (8) Diabetes type 2, controlled Code(s): E11.9 - TYPE 2 DIABETES MELLITUS WITHOUT COMPLICATIONS Status: Chronic (9) Dyslipidemia Code(s): E78.5 - HYPERLIPIDEMIA, UNSPECIFIED Status: Chronic (10) Hypertension Code(s): I10 - ESSENTIAL (PRIMARY) HYPERTENSION Status: Chronic (11) Hypothyroidism Code(s): E03.9 - HYPOTHYROIDISM, UNSPECIFIED Status: Chronic (12) Severe protein-calorie malnutrition Code(s): E43 - UNSPECIFIED SEVERE PROTEIN-CALORIE MALNUTRITION Status: Chronic - Plan continue antibiotics, PT/OT, respiratory therapy, incentive spirometry, out of bed/ambulate, DVT proph w/SCDs cont ABx.follow final Cx. awaiting clinical improvement -: poor PO intake w high risk of Aspiration.Cont IVF as above -: OT/PT -: home meds. am labs.replace Mag * . Review of Systems - Medications/Allergies Allergies/Adverse Reactions: Allergies Allergy/AdvReac Type Severity Reaction Status Date / Time No Known Allergies Allergy Verified 02/27/19 15:57 Medications: Current Medications Acetaminophen (Tylenol) 650 mg PO Q4H PRN PRN Reason: Headache/Fever/Mild Pain (1-3) Last Admin: 03/03/19 08:55 Dose: 650 mg Albuterol/Ipratropium (Duoneb) 3 ml NEB [id number] PRN PRN Reason: SOB &/or Wheezing Albuterol/Ipratropium (Duoneb) 3 ml NEB [id number] [facility] Last Admin: 03/03/19 12:41 Dose: 3 ml Atorvastatin Calcium (Lipitor) 10 mg PO HS [facility] Last Admin: 03/02/19 20:00 Dose: 10 mg Carvedilol (Coreg) 12.5 mg PO BID [facility] Last Admin: 03/03/19 08:49 Dose: 12.5 mg Clonidine (Catapres) 0.1 mg PO Q6HR PRN PRN Reason: Hypertension Dextrose/Water (Dextrose 50%) 25 gm SLOW IVP PRN PRN PRN Reason: Hypoglycemia Famotidine (Pepcid) 20 mg PO DAILY [facility] Last Admin: 03/03/19 08:49 Dose: 20 mg Folic Acid (Folvite) 1 mg PO DAILY [facility] Last Admin: 03/03/19 08:49 Dose: 1 mg Glucagon (Glucagon) 1 mg IM PRN PRN PRN Reason: Hypoglycemia Dextrose/Water (D5w) 1,000 mls @ 0 mls/hr IV .Q0M PRN PRN Reason: Hypoglycemia Piperacillin Sod/Tazobactam (Sod 3.375 gm/ Sodium Chloride) 100 mls @ 200 mls/ hr IVPB 0200,0800,1400,2000 [facility] Last Admin: 03/03/19 08:46 Dose: 100 mls Vancomycin HCl 1 gm/ Device 200 mls @ 200 mls/hr IVPB 0300,1500 [facility] Last Admin: 03/03/19 03:18 Dose: 200 mls Insulin Glargine 5 units/ (Miscellaneous Medication) 0.05 mls @ 0 mls/hr SC HS [facility] Last Admin: 03/02/19 20:00 Dose: 0.05 mls Insulin Glargine 5 units/ (Miscellaneous Medication) 0.05 mls @ 0 mls/hr SC QAM [facility] Last Admin: 03/03/19 08:51 Dose: 0.05 mls Potassium Chloride 30 meq/ (Dextrose/Water) 1,015 mls @ 100 mls/hr IV .Q10H9M [facility] Last Admin: 03/03/19 12:40 Dose: 1,015 mls Insulin Human Lispro (Humalog) 0 units SC .MILD SLIDING SCALE PRN PRN Reason: Mild Correctional Scale Last Admin: 03/02/19 12:14 Dose: 5 unit Insulin Human Lispro (Humalog) 0 units SC .BEDTIME SLIDING SC PRN PRN Reason: Bedtime Correctional Scale Last Admin: 03/02/19 20:00 Dose: 5 units Lactulose (Lactulose) 30 gm PO TID PRN PRN Reason: Constipation Levothyroxine Sodium (Synthroid) 200 mcg PO 0600 [facility] Last Admin: 03/03/19 05:11 Dose: 200 mcg Lisinopril (Zestril) 20 mg PO DAILY [facility] Last Admin: 03/03/19 08:49 Dose: 20 mg Miscellaneous Medication (Pharmacy To Dose) 1 each IVPB PRN PRN PRN Reason: Pharmacy to dose Polyethylene Glycol (Miralax) 17 gm PO BID [facility] Last Admin: 03/03/19 09:51 Dose: Not Given
[2019-03-03 14:06] LABS: Vancomycin, Trough 22.7 ug/mL
[2019-03-03] MEDS: Atorvastatin Calcium 10 MG TAB PO SCH (19:40)
[2019-03-04] MEDS: Piperacillin/Tazobactam 3.375 GM in Sodium Chloride 0.9% 100 ML IVPB SCH ×4 (01:44→20:05)
[2019-03-04] MEDS: Vancomycin HCl 750 MG in Sodium Chloride 0.9% 250 ML 250 ML IVPB SCH ×2 (03:02→16:17)
[2019-03-04] MEDS: Levothyroxine Sodium 100 MCG TAB PO SCH (05:10)
[2019-03-04 06:05] LABS: #Eosinphils 0.1 thou/uL (0.0-0.7); #Lymphocytes 2.2 thou/uL (1.20-3.40); #Monocytes 0.6 thou/uL (0.11-0.59); #Neutrophils 6.2 thou/uL (1.40-6.50); %Basophils 0.1 % (0.0-1.0); %Eosinophils 0.8 % (0.0-10.0); %Lymphocytes 24.5 % (21.0-51.0); %Monocytes 6.1 % (0.0-10.0); %Neutrophils 68.5 % (42.0-75.0); Hemoglobin 9.8 g/dL (12.0-16.0); Mean Corpuscular HGB CONC 31.6 g/dL (32.0-36.0); Mean Corpuscular Hemoglobin 29.1 pg (27.0-31.0); Mean Corpuscular Volume 92.1 fL (78.0-98.0); Mean Platelet Volume 6.9 fL (7.4-10.4); Platelet Count 208 thou/uL (130-400); RBC Distribution Width 13.2 % (11.5-14.5); Red Blood Cell (RBC) Count 3.36 mill/uL (4.20-5.40); White Blood Cell (WBC) Count 9.1 thou/uL (4.8-10.8)
[2019-03-04 06:22] LABS: Anion Gap 9 mmol/L (10-20); BUN (Urea Nitrogen) 14 mg/dL (9.8-20.1); Calc. Creatinine Clearance 51 mL/min (70-130); Calcium 7.4 mg/dL (7.8-10.44); Carbon Dioxide 23 mmol/L (23-31); Chloride 115 mmol/L (98-107); Estimated GFR-MDRD Greater than 90; Glucose 79 mg/dL (83-110); Potassium 3.3 mmol/L (3.5-5.1); Sodium 144 mmol/L (136-145)
[2019-03-04] MEDS: Polyethylene Glycol 3350 17 GM Packet PO SCH ×2 (08:12→20:07)
[2019-03-04] MEDS: Carvedilol 6.25 MG TAB PO SCH ×2 (08:14→20:06)
[2019-03-04] MEDS: Lisinopril 20 MG TAB PO SCH (08:14)
[2019-03-04] MEDS: Folic Acid 1 MG TAB PO SCH (08:14)
[2019-03-04] MEDS: Famotidine 20 MG TAB PO SCH (08:14)
[2019-03-04] MEDS: Insulin Glargine 5 UNITS in Pre-Filled Syringe SC SCH ×2 (08:48→20:06)
[2019-03-04] MEDS ORDERED: hydrALAZINE 20 MG/ML VIAL SLOW IVP PRN (09:06)
[2019-03-04] MEDS ORDERED: Amlodipine 5 MG TAB PO SCH (09:15)
--- NOTE | 2019-03-04 12:40 | PDOC.PN ---
- Subjective Encounter Start Date: 03/04/19 Encounter Start Time: 12:39 Subjective: feels OK.frail & woken up from sleep -: does not answer most Qs but denies any discomfort -: no family at bedside today - Objective Resuscitation Status - Order Detail: 02/27/19 14:36 Resuscitation Status Routine Resuscitation Status: DNAR: NO Resuscitation Discussed with: Discussed with patient's daughter NATALIO Reviewed: Yes Vital Signs & Weight: Vital Signs (12 hours) Temp Pulse Resp BP BP Pulse Ox 03/04/19 12:38 64 20 96 03/04/19 10:26 131/71 03/04/19 08:14 175/87 H 03/04/19 07:00 97.5 F L 67 18 175/87 H 95 03/04/19 06:50 91 L 03/04/19 06:48 66 20 91 L Weight Admit Weight 102 lb 9.6 oz Weight 102 lb 9.6 oz Most Recent Monitor Data Heart Rate from ECG 81 NIBP 129/61 NIBP BP-Mean 83 Respiration from ECG 20 SpO2 96 I&O: 03/03/19 03/04/19 03/05/19 06:59 06:59 06:59 Intake Total 1200 Output Total 575 Balance 625 Result Diagrams: 03/04/19 05:02 03/04/19 05:02 Additional Labs: Accuchecks 03/04/19 03/03/19 03/03/19 04:25 19:20 16:27 POC Glucose 84 131 H 150 H Microbiology 02/27/19 15:35 Stool C. difficile GDH Antigen & Toxins - Final 02/27/19 11:53 Urine vasquez catheter Urine Culture - Final Pseudomonas aeruginosa Enterococcus faecalis 02/27/19 11:35 Stool - Pending Stool Occult Blood (KEV) - Final 02/27/19 13:51 Venous blood - Right Hand Blood Culture - Preliminary NO GROWTH AT 48 HOURS 02/27/19 12:22 Venous blood - Right Arm Blood Culture - Preliminary Coagulase Neg Staphylococcus Gram Positive [facility] Tests 02/27/19 02/28/19 03/01/19 12:23 04:20 04:29 Sodium 141 143 147 H Chloride 106 110 H 114 H 03/02/19 03/03/19 03/04/19 05:24 05:54 05:02 Sodium 147 H 146 H 144 Chloride 116 H 116 H 115 H Phys Exam - Physical Examination Constitutional: NAD opens eyes w verbal stimulation.follows some simple commands HEENT: PERRLA, moist MMs, sclera anicteric, oral pharynx no lesions Neck: no nodes, no JVD, supple, full ROM Respiratory: no wheezing, no rales, no rhonchi, clear to auscultation bilateral Cardiovascular: RRR, no significant murmur Gastrointestinal: soft, non-tender, no distention, positive bowel sounds Musculoskeletal: no edema, pulses present Neurological: moves all 4 limbs Psychiatric: normal affect Skin: no rash Dx/Plan (1) HCAP (healthcare-associated pneumonia) Code(s): J18.9 - PNEUMONIA, UNSPECIFIED ORGANISM Status: Acute Comment: on broad spectrum IV ABx (2) Hypernatremia Code(s): E87.0 - HYPEROSMOLALITY AND HYPERNATREMIA Status: Acute Comment: cont D5W w KCl.improving (3) Hypokalemia Code(s): E87.6 - HYPOKALEMIA Status: Acute Comment: replace and recheck (4) Fecal impaction in rectum Code(s): K56.41 - FECAL IMPACTION Status: Acute Comment: improved w Enema (5) Stercoral colitis Status: Acute (6) Sepsis Code(s): A41.9 - SEPSIS, UNSPECIFIED ORGANISM Status: Acute Comment: improving (7) Dementia Code(s): F03.90 - UNSPECIFIED DEMENTIA WITHOUT BEHAVIORAL DISTURBANCE Status: Chronic (8) Diabetes type 2, controlled Code(s): E11.9 - TYPE 2 DIABETES MELLITUS WITHOUT COMPLICATIONS Status: Chronic (9) Dyslipidemia Code(s): E78.5 - HYPERLIPIDEMIA, UNSPECIFIED Status: Chronic (10) Hypertension Code(s): I10 - ESSENTIAL (PRIMARY) HYPERTENSION Status: Chronic (11) Hypothyroidism Code(s): E03.9 - HYPOTHYROIDISM, UNSPECIFIED Status: Chronic (12) Severe protein-calorie malnutrition Code(s): E43 - UNSPECIFIED SEVERE PROTEIN-CALORIE MALNUTRITION Status: Chronic (13) Sacral decubitus ulcer Code(s): L89.159 - PRESSURE ULCER OF SACRAL REGION, UNSPECIFIED STAGE Status: Chronic Qualifiers: Pressure injury stage: stage 2 Qualified Code(s): L89.152 - Pressure ulcer of sacral region, stage 2 - Plan continue antibiotics, PT/OT, speech therapy, respiratory therapy, incentive spirometry, out of bed/ambulate, DVT proph w/SCDs Cont ABx .final Cx pending.clinically better. 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 monitor Review of Systems - Medications/Allergies Allergies/Adverse Reactions: Allergies Allergy/AdvReac Type Severity Reaction Status Date / Time No Known Allergies Allergy Verified 02/27/19 15:57 Medications: Current Medications Acetaminophen (Tylenol) 650 mg PO Q4H PRN PRN Reason: Headache/Fever/Mild Pain (1-3) Last Admin: 03/03/19 08:55 Dose: 650 mg Albuterol/Ipratropium (Duoneb) 3 ml NEB [id number] PRN PRN Reason: SOB &/or Wheezing Albuterol/Ipratropium (Duoneb) 3 ml NEB [id number] [facility] Last Admin: 03/04/19 12:38 Dose: 3 ml Amlodipine Besylate (Norvasc) 2.5 mg PO DAILY [facility] Atorvastatin Calcium (Lipitor) 10 mg PO HS [facility] Last Admin: 03/03/19 19:40 Dose: 10 mg Carvedilol (Coreg) 12.5 mg PO BID [facility] Last Admin: 03/04/19 08:14 Dose: 12.5 mg Clonidine (Catapres) 0.1 mg PO Q6HR PRN PRN Reason: Hypertension Dextrose/Water (Dextrose 50%) 25 gm SLOW IVP PRN PRN PRN Reason: Hypoglycemia Famotidine (Pepcid) 20 mg PO DAILY [facility] Last Admin: 03/04/19 08:14 Dose: 20 mg Folic Acid (Folvite) 1 mg PO DAILY [facility] Last Admin: 03/04/19 08:14 Dose: 1 mg Glucagon (Glucagon) 1 mg IM PRN PRN PRN Reason: Hypoglycemia Hydralazine HCl (Apresoline) 10 mg SLOW IVP Q4H PRN PRN Reason: SBP>170 Dextrose/Water (D5w) 1,000 mls @ 0 mls/hr IV .Q0M PRN PRN Reason: Hypoglycemia Piperacillin Sod/Tazobactam (Sod 3.375 gm/ Sodium Chloride) 100 mls @ 200 mls/ hr IVPB 0200,0800,1400,2000 [facility] Last Admin: 03/04/19 08:11 Dose: 100 mls Insulin Glargine 5 units/ (Miscellaneous Medication) 0.05 mls @ 0 mls/hr SC HS [facility] Last Admin: 03/03/19 19:41 Dose: 0.05 mls Insulin Glargine 5 units/ (Miscellaneous Medication) 0.05 mls @ 0 mls/hr SC QAM [facility] Last Admin: 03/04/19 08:48 Dose: 0.05 mls Vancomycin HCl 750 mg/ Sodium (Chloride) 250 mls @ 250 mls/hr IVPB 0300,1500 [facility] Last Admin: 03/04/19 03:02 Dose: 250 mls Potassium Chloride 30 meq/ (Dextrose/Water) 1,015 mls @ 75 mls/hr IV .[id number] [facility] Last Admin: 03/04/19 10:28 Dose: Not Given Insulin Human Lispro (Humalog) 0 units SC .MILD SLIDING SCALE PRN PRN Reason: Mild Correctional Scale Last Admin: 03/02/19 12:14 Dose: 5 unit Insulin Human Lispro (Humalog) 0 units SC .BEDTIME SLIDING SC PRN PRN Reason: Bedtime Correctional Scale Last Admin: 03/02/19 20:00 Dose: 5 units Lactulose (Lactulose) 30 gm PO TID PRN PRN Reason: Constipation Levothyroxine Sodium (Synthroid) 200 mcg PO 0600 [facility] Last Admin: 03/04/19 05:10 Dose: 200 mcg Lisinopril (Zestril) 20 mg PO DAILY [facility] Last Admin: 03/04/19 08:14 Dose: 20 mg Miscellaneous Medication (Pharmacy To Dose) 1 each IVPB PRN PRN PRN Reason: Pharmacy to dose Polyethylene Glycol (Miralax) 17 gm PO BID [facility] Last Admin: 03/04/19 08:12 Dose: Not Given
[2019-03-04 14:11] LABS: Vancomycin, Trough 21.9 ug/mL
[2019-03-04] MEDS: Acetaminophen 325 MG TAB PO PRN (15:07)
[2019-03-04] MEDS: HumaLOG 300 UNITS/3 ML VIAL SC PRN ×2 (17:36→20:07)
[2019-03-04] MEDS: Atorvastatin Calcium 10 MG TAB PO SCH (20:06)
[2019-03-05] MEDS: Piperacillin/Tazobactam 3.375 GM in Sodium Chloride 0.9% 100 ML IVPB SCH ×4 (02:06→20:51)
[2019-03-05] MEDS: Vancomycin HCl 500 MG in Sodium Chloride 0.9% 100 ML IVPB SCH ×2 (03:07→14:09)
[2019-03-05] MEDS: Levothyroxine Sodium 100 MCG TAB PO SCH (05:40)
[2019-03-05] MEDS: HumaLOG 300 UNITS/3 ML VIAL SC PRN ×2 (05:40→20:52)
[2019-03-05 06:31] LABS: #Eosinphils 0.1 thou/uL (0.0-0.7); #Lymphocytes 2.1 thou/uL (1.20-3.40); #Monocytes 0.5 thou/uL (0.11-0.59); #Neutrophils 7.6 thou/uL (1.40-6.50); %Basophils 0.1 % (0.0-1.0); %Lymphocytes 20.5 % (21.0-51.0); %Monocytes 4.9 % (0.0-10.0); %Neutrophils 73.6 % (42.0-75.0); Hemoglobin 10.1 g/dL (12.0-16.0); Mean Corpuscular HGB CONC 31.9 g/dL (32.0-36.0); Mean Corpuscular Volume 91.1 fL (78.0-98.0); Mean Platelet Volume 6.9 fL (7.4-10.4); Platelet Count 203 thou/uL (130-400); Red Blood Cell (RBC) Count 3.49 mill/uL (4.20-5.40); White Blood Cell (WBC) Count 10.3 thou/uL (4.8-10.8)
[2019-03-05 06:44] LABS: Anion Gap 8 mmol/L (10-20); BUN (Urea Nitrogen) 14 mg/dL (9.8-20.1); Calc. Creatinine Clearance 48 mL/min (70-130); Calcium 7.4 mg/dL (7.8-10.44); Carbon Dioxide 23 mmol/L (23-31); Chloride 112 mmol/L (98-107); Estimated GFR-MDRD Greater than 90; Glucose 182 mg/dL (83-110); Potassium 3.4 mmol/L (3.5-5.1); Sodium 140 mmol/L (136-145)
[2019-03-05] MEDS: Famotidine 20 MG TAB PO SCH (07:41)
[2019-03-05] MEDS: Folic Acid 1 MG TAB PO SCH (07:41)
[2019-03-05] MEDS: Lisinopril 20 MG TAB PO SCH (07:42)
[2019-03-05] MEDS: Carvedilol 6.25 MG TAB PO SCH ×2 (07:42→20:52)
[2019-03-05] MEDS: Polyethylene Glycol 3350 17 GM Packet PO SCH ×2 (07:47→17:09)
[2019-03-05] MEDS: Insulin Glargine 5 UNITS in Pre-Filled Syringe SC SCH ×2 (08:41→21:02)
[2019-03-05] MEDS ORDERED: Amlodipine 5 MG TAB PO SCH ×2 (09:00→09:04)
[2019-03-05] MEDS: Amlodipine 5 MG TAB PO SCH (09:55)
--- NOTE | 2019-03-05 13:37 | PDOC.PN ---
- Subjective Encounter Start Date: 03/05/19 Encounter Start Time: 13:35 Subjective: feels a little better -: able to eat all of her dinner last night w/o chokong/coughing -: care discussed w daughter & MARIAM at bedside - Objective Resuscitation Status - Order Detail: 02/27/19 14:36 Resuscitation Status Routine Resuscitation Status: DNAR: NO Resuscitation Discussed with: Discussed with patient's daughter MAR Reviewed: Yes Vital Signs & Weight: Vital Signs (12 hours) Temp Pulse Resp BP BP Pulse Ox 03/05/19 12:27 97.5 F L 67 18 166/76 H 90 L 03/05/19 11:39 72 14 93 L 03/05/19 09:55 76 168/80 H 03/05/19 09:28 150/70 H 03/05/19 07:52 97.7 F 68 20 191/84 H 92 L 03/05/19 07:42 67 135/73 03/05/19 06:09 67 13 92 L 03/05/19 02:22 93 L Weight Admit Weight 102 lb 9.6 oz Weight 102 lb 9.6 oz Most Recent Monitor Data Heart Rate from ECG 81 NIBP 129/61 NIBP BP-Mean 83 Respiration from ECG 20 SpO2 96 I&O: 03/04/19 03/05/19 03/06/19 06:59 06:59 06:59 Intake Total 1200 1520 Output Total 575 1650 Balance 625 -130 Result Diagrams: 03/05/19 05:21 03/05/19 05:21 Additional Labs: Accuchecks 03/05/19 03/05/19 03/04/19 12:01 05:30 19:58 POC Glucose 121 H 194 H 276 H 03/04/19 17:33 POC Glucose 220 H Microbiology 02/27/19 15:35 Stool C. difficile GDH Antigen & Toxins - Final 02/27/19 13:51 Venous blood - Right Hand Blood Culture - Final NO GROWTH IN 5 DAYS 02/27/19 12:22 Venous blood - Right Arm Blood Culture - Final Coagulase Neg Staphylococcus Presumptive Corynebacterium sp 02/27/19 11:53 Urine vasquez catheter Urine Culture - Final Pseudomonas aeruginosa Enterococcus faecalis 02/27/19 11:35 Stool - Pending Stool Occult Blood (KEV) - Final Phys Exam - Physical Examination Constitutional: NAD HEENT: PERRLA, moist MMs, sclera anicteric, oral pharynx no lesions Neck: no nodes, no JVD, supple, full ROM Respiratory: no wheezing, no rales, no rhonchi, clear to auscultation bilateral Cardiovascular: RRR, no significant murmur Gastrointestinal: soft, non-tender, no distention, positive bowel sounds Musculoskeletal: no edema, pulses present Neurological: moves all 4 limbs Psychiatric: normal affect Skin: no rash Dx/Plan (1) HCAP (healthcare-associated pneumonia) Code(s): J18.9 - PNEUMONIA, UNSPECIFIED ORGANISM Status: Acute Comment: on broad spectrum IV ABx (2) Hypernatremia Code(s): E87.0 - HYPEROSMOLALITY AND HYPERNATREMIA Status: Acute Comment: cont D5W w KCl.improving (3) Hypokalemia Code(s): E87.6 - HYPOKALEMIA Status: Acute Comment: replace and recheck (4) Fecal impaction in rectum Code(s): K56.41 - FECAL IMPACTION Status: Acute Comment: improved w Enema (5) Stercoral colitis Status: Acute (6) Sepsis Code(s): A41.9 - SEPSIS, UNSPECIFIED ORGANISM Status: Acute Comment: improving (7) Dementia Code(s): F03.90 - UNSPECIFIED DEMENTIA WITHOUT BEHAVIORAL DISTURBANCE Status: Chronic (8) Diabetes type 2, controlled Code(s): E11.9 - TYPE 2 DIABETES MELLITUS WITHOUT COMPLICATIONS Status: Chronic (9) Dyslipidemia Code(s): E78.5 - HYPERLIPIDEMIA, UNSPECIFIED Status: Chronic (10) Hypertension Code(s): I10 - ESSENTIAL (PRIMARY) HYPERTENSION Status: Chronic (11) Hypothyroidism Code(s): E03.9 - HYPOTHYROIDISM, UNSPECIFIED Status: Chronic (12) Severe protein-calorie malnutrition Code(s): E43 - UNSPECIFIED SEVERE PROTEIN-CALORIE MALNUTRITION Status: Chronic (13) Sacral decubitus ulcer Code(s): L89.159 - PRESSURE ULCER OF SACRAL REGION, UNSPECIFIED STAGE Status: Chronic Qualifiers: Pressure injury stage: stage 2 Qualified Code(s): L89.152 - Pressure ulcer of sacral region, stage 2 - Plan plan discussed w/ family, continue antibiotics, PT/OT, respiratory therapy, incentive spirometry, out of bed/ambulate, DVT proph w/SCDs clinically better. encourage OT,PT,PO intake -: reduce IVF as BP high.increase Norvasc.started yesterday -: Blood sugar controlled w addition of lantus -: empiric ABx. Blood Cx is a contamination,urine likley colonization -: may change to PO Abx on DC or stop * .DC when more awake ,likely next 24-48 hours.family made aware * [facility].Plans for intermediate placement * now having diarrhea so will back off from laxatives that were started for fecal impaction Review of Systems - Review of Systems Other: limited due to somnolence and advanced dementia - Medications/Allergies Allergies/Adverse Reactions: Allergies Allergy/AdvReac Type Severity Reaction Status Date / Time No Known Allergies Allergy Verified 02/27/19 15:57 Medications: Current Medications Acetaminophen (Tylenol) 650 mg PO Q4H PRN PRN Reason: Headache/Fever/Mild Pain (1-3) Last Admin: 03/04/19 15:07 Dose: 650 mg Albuterol/Ipratropium (Duoneb) 3 ml NEB [id number] PRN PRN Reason: SOB &/or Wheezing Albuterol/Ipratropium (Duoneb) 3 ml NEB [id number] [facility] Last Admin: 03/05/19 11:39 Dose: 3 ml Amlodipine Besylate (Norvasc) 5 mg PO DAILY [facility] Last Admin: 03/05/19 09:55 Dose: 5 mg Atorvastatin Calcium (Lipitor) 10 mg PO HS [facility] Last Admin: 03/04/19 20:06 Dose: 10 mg Carvedilol (Coreg) 12.5 mg PO BID [facility] Last Admin: 03/05/19 07:42 Dose: 12.5 mg Clonidine (Catapres) 0.1 mg PO Q6HR PRN PRN Reason: Hypertension Dextrose/Water (Dextrose 50%) 25 gm SLOW IVP PRN PRN PRN Reason: Hypoglycemia Famotidine (Pepcid) 20 mg PO DAILY [facility] Last Admin: 03/05/19 07:41 Dose: 20 mg Folic Acid (Folvite) 1 mg PO DAILY [facility] Last Admin: 03/05/19 07:41 Dose: 1 mg Glucagon (Glucagon) 1 mg IM PRN PRN PRN Reason: Hypoglycemia Hydralazine HCl (Apresoline) 10 mg SLOW IVP Q4H PRN PRN Reason: SBP>170 Dextrose/Water (D5w) 1,000 mls @ 0 mls/hr IV .Q0M PRN PRN Reason: Hypoglycemia Piperacillin Sod/Tazobactam (Sod 3.375 gm/ Sodium Chloride) 100 mls @ 200 mls/ hr IVPB 0200,0800,1400,2000 [facility] Last Admin: 03/05/19 12:55 Dose: 100 mls Insulin Glargine 5 units/ (Miscellaneous Medication) 0.05 mls @ 0 mls/hr SC HS [facility] Last Admin: 03/04/19 20:06 Dose: 0.05 mls Insulin Glargine 5 units/ (Miscellaneous Medication) 0.05 mls @ 0 mls/hr SC QAM [facility] Last Admin: 03/05/19 08:41 Dose: 0.05 mls Potassium Chloride 30 meq/ (Dextrose/Water) 1,015 mls @ 75 mls/hr IV .[id number] [facility] Last Admin: 03/05/19 08:41 Dose: 1,015 mls Vancomycin HCl 500 mg/ Sodium (Chloride) 100 mls @ 100 mls/hr IVPB 0300,1500 [facility] Last Admin: 03/05/19 03:07 Dose: 100 mls Insulin Human Lispro (Humalog) 0 units SC .MILD SLIDING SCALE PRN PRN Reason: Mild Correctional Scale Last Admin: 03/05/19 05:40 Dose: 2 unit Insulin Human Lispro (Humalog) 0 units SC .BEDTIME SLIDING SC PRN PRN Reason: Bedtime Correctional Scale Last Admin: 03/04/19 20:07 Dose: 3 units Lactulose (Lactulose) 30 gm PO TID PRN PRN Reason: Constipation Levothyroxine Sodium (Synthroid) 200 mcg PO 0600 [facility] Last Admin: 03/05/19 05:40 Dose: 200 mcg Lisinopril (Zestril) 20 mg PO DAILY [facility] Last Admin: 03/05/19 07:42 Dose: 20 mg Miscellaneous Medication (Pharmacy To Dose) 1 each IVPB PRN PRN PRN Reason: Pharmacy to dose Polyethylene Glycol (Miralax) 17 gm PO BID [facility] Last Admin: 03/05/19 07:47 Dose: 17 gm Sodium Chloride (Flush - Normal Saline) 10 ml IVF Q12HR [facility] Sodium Chloride (Flush - Normal Saline) 10 ml IVF PRN PRN PRN Reason: Saline Flush
[2019-03-05] MEDS ORDERED: Polyethylene Glycol 3350 17 GM Packet PO PRN (13:40)
[2019-03-05] MEDS: Atorvastatin Calcium 10 MG TAB PO SCH (20:52)
[2019-03-06] MEDS: Piperacillin/Tazobactam 3.375 GM in Sodium Chloride 0.9% 100 ML IVPB SCH ×4 (02:20→20:15)
[2019-03-06] MEDS: Vancomycin HCl 500 MG in Sodium Chloride 0.9% 100 ML IVPB SCH ×2 (03:17→15:00)
[2019-03-06] MEDS: Levothyroxine Sodium 100 MCG TAB PO SCH (05:57)
[2019-03-06] MEDS: HumaLOG 300 UNITS/3 ML VIAL SC PRN (05:58)
[2019-03-06 06:17] LABS: #Eosinphils 0.2 thou/uL (0.0-0.7); #Lymphocytes 2.4 thou/uL (1.20-3.40); #Monocytes 0.4 thou/uL (0.11-0.59); #Neutrophils 7.5 thou/uL (1.40-6.50); %Eosinophils 1.5 % (0.0-10.0); %Lymphocytes 22.7 % (21.0-51.0); %Monocytes 3.7 % (0.0-10.0); %Neutrophils 72.1 % (42.0-75.0); Hemoglobin 9.6 g/dL (12.0-16.0); Mean Corpuscular Hemoglobin 29.4 pg (27.0-31.0); Platelet Count 215 thou/uL (130-400); RBC Distribution Width 13.1 % (11.5-14.5); Red Blood Cell (RBC) Count 3.26 mill/uL (4.20-5.40); White Blood Cell (WBC) Count 10.4 thou/uL (4.8-10.8)
[2019-03-06 06:28] LABS: Anion Gap 10 mmol/L (10-20); BUN (Urea Nitrogen) 11 mg/dL (9.8-20.1); Calc. Creatinine Clearance 54 mL/min (70-130); Calcium 7.2 mg/dL (7.8-10.44); Carbon Dioxide 22 mmol/L (23-31); Chloride 111 mmol/L (98-107); Estimated GFR-MDRD Greater than 90; Glucose 169 mg/dL (83-110); Potassium 3.5 mmol/L (3.5-5.1); Sodium 139 mmol/L (136-145)
[2019-03-06] MEDS: Insulin Glargine 5 UNITS in Pre-Filled Syringe SC SCH ×2 (08:00→20:38)
[2019-03-06] MEDS: Folic Acid 1 MG TAB PO SCH (08:01)
[2019-03-06] MEDS: Amlodipine 5 MG TAB PO SCH (08:01)
[2019-03-06] MEDS: Carvedilol 6.25 MG TAB PO SCH ×2 (08:01→20:15)
[2019-03-06] MEDS: Famotidine 20 MG TAB PO SCH (08:01)
[2019-03-06] MEDS: Lisinopril 20 MG TAB PO SCH (08:01)
[2019-03-06 14:30] LABS: Vancomycin, Trough 17.2 ug/mL
[2019-03-06] MEDS: Senokot S 8.6-50 MG TAB PO SCH (20:16)
[2019-03-06] MEDS: Atorvastatin Calcium 10 MG TAB PO SCH (20:16)
--- NOTE | 2019-03-06 22:48 | PDOC.PN ---
- Subjective Encounter Start Date: 03/06/19 Encounter Start Time: 15:15 Patient seen and examined for Sepsis. No new complaints. No issues per RN. No overnight events - Objective Resuscitation Status - Order Detail: 02/27/19 14:36 Resuscitation Status Routine Resuscitation Status: DNAR: NO Resuscitation Discussed with: Discussed with patient's daughter NATALIO Reviewed: Yes Vital Signs & Weight: Vital Signs (12 hours) Temp Pulse Resp BP BP Pulse Ox 03/06/19 20:15 183/82 H 03/06/19 20:00 97.6 F 64 18 183/82 H 94 L 03/06/19 18:25 70 12 94 L 03/06/19 11:50 70 16 95 Weight Admit Weight 102 lb 9.6 oz Weight 102 lb 9.6 oz Most Recent Monitor Data Heart Rate from ECG 81 NIBP 129/61 NIBP BP-Mean 83 Respiration from ECG 20 SpO2 96 I&O: 03/05/19 03/06/19 03/07/19 06:59 06:59 06:59 Intake Total 1520 2100 240 Output Total 1650 1900 350 Balance -130 200 -110 Result Diagrams: 03/07/19 05:39 03/07/19 05:39 Additional Labs: Accuchecks 03/06/19 03/06/19 03/06/19 20:06 16:26 12:00 POC Glucose 246 H 186 H 122 H 03/06/19 03/05/19 05:40 19:24 POC Glucose 183 H 272 H Phys Exam - Physical Examination Constitutional: NAD Respiratory: no wheezing, no rhonchi Dec AE at bases Cardiovascular: RRR, no rub Gastrointestinal: soft, non-tender, positive bowel sounds Musculoskeletal: no edema Dx/Plan - Plan DVT proph w/SCDs IMPRESSION: Sepsis with acute organ dysfunction due to Pneumonia ?Aspiration Electrolyte abn - hypernatremia/hypokalemia/hypomagnesemia Fecal impaction CKD 2 HTN Dementia Moderate PEM DM2 PLAN: Cont Atbx AM labs Cont current IVF with Potassium Cont modified diet Cont PT/OT Cont current meds as below AM labs Replace Potassium Review of Systems - Review of Systems Respiratory: negative: Cough, Dry, Shortness of Breath, Hemoptysis, SOB with Excertion, Pleuritic Pain, Sputum, Wheezing Cardiovascular: negative: chest pain, palpitations, orthopnea, paroxysmal nocturnal dyspnea, edema, light headedness, other - Medications/Allergies Allergies/Adverse Reactions: Allergies Allergy/AdvReac Type Severity Reaction Status Date / Time No Known Allergies Allergy Verified 02/27/19 15:57 Medications: Current Medications Acetaminophen (Tylenol) 650 mg PO Q4H PRN PRN Reason: Headache/Fever/Mild Pain (1-3) Last Admin: 03/04/19 15:07 Dose: 650 mg Albuterol/Ipratropium (Duoneb) 3 ml NEB [id number] PRN PRN Reason: SOB &/or Wheezing Albuterol/Ipratropium (Duoneb) 3 ml NEB [id number] [facility] Last Admin: 03/06/19 18:25 Dose: 3 ml Amlodipine Besylate (Norvasc) 5 mg PO DAILY [facility] Last Admin: 03/06/19 08:01 Dose: 5 mg Atorvastatin Calcium (Lipitor) 10 mg PO HS [facility] Last Admin: 03/06/19 20:16 Dose: 10 mg Carvedilol (Coreg) 12.5 mg PO BID [facility] Last Admin: 03/06/19 20:15 Dose: 12.5 mg Clonidine (Catapres) 0.1 mg PO Q6HR PRN PRN Reason: Hypertension Dextrose/Water (Dextrose 50%) 25 gm SLOW IVP PRN PRN PRN Reason: Hypoglycemia Famotidine (Pepcid) 20 mg PO DAILY [facility] Last Admin: 03/06/19 08:01 Dose: 20 mg Folic Acid (Folvite) 1 mg PO DAILY [facility] Last Admin: 03/06/19 08:01 Dose: 1 mg Glucagon (Glucagon) 1 mg IM PRN PRN PRN Reason: Hypoglycemia Hydralazine HCl (Apresoline) 10 mg SLOW IVP Q4H PRN PRN Reason: SBP>170 Dextrose/Water (D5w) 1,000 mls @ 0 mls/hr IV .Q0M PRN PRN Reason: Hypoglycemia Piperacillin Sod/Tazobactam (Sod 3.375 gm/ Sodium Chloride) 100 mls @ 200 mls/ hr IVPB 0200,0800,1400,2000 [facility] Last Admin: 03/06/19 20:15 Dose: 100 mls Insulin Glargine 5 units/ (Miscellaneous Medication) 0.05 mls @ 0 mls/hr SC [facility] Last Admin: 03/06/19 20:38 Dose: 0.05 mls Insulin Glargine 5 units/ (Miscellaneous Medication) 0.05 mls @ 0 mls/hr SC QAM [facility] Last Admin: 03/06/19 08:00 Dose: 0.05 mls Vancomycin HCl 500 mg/ Sodium (Chloride) 100 mls @ 100 mls/hr IVPB 0300,1500 [facility] Last Admin: 03/06/19 15:00 Dose: 100 mls Potassium Chloride 30 meq/ (Dextrose/Water) 1,015 mls @ 50 mls/hr IV .[id number] [facility] Last Admin: 03/06/19 06:04 Dose: 1,015 mls Insulin Human Lispro (Humalog) 0 units SC .MILD SLIDING SCALE PRN PRN Reason: Mild Correctional Scale Last Admin: 03/06/19 05:58 Dose: 2 unit Insulin Human Lispro (Humalog) 0 units SC .BEDTIME SLIDING SC PRN PRN Reason: Bedtime Correctional Scale Last Admin: 03/05/19 20:52 Dose: 3 units Lactulose (Lactulose) 30 gm PO TID PRN PRN Reason: Constipation Levothyroxine Sodium (Synthroid) 200 mcg PO 0600 [facility] Last Admin: 03/06/19 05:57 Dose: 200 mcg Lisinopril (Zestril) 20 mg PO DAILY [facility] Last Admin: 03/06/19 08:01 Dose: 20 mg Miscellaneous Medication (Pharmacy To Dose) 1 each IVPB PRN PRN PRN Reason: Pharmacy to dose Polyethylene Glycol (Miralax) 17 gm PO DAILYPRN PRN PRN Reason: Constipation Saccharomyces Boulardii (Florastor) 250 mg PO DAILY [facility] Senna/Docusate Sodium (Senokot S) 1 tab PO BID [facility] Last Admin: 03/06/19 20:16 Dose: 1 tab Sodium Chloride (Flush - Normal Saline) 10 ml IVF Q12HR [facility] Last Admin: 03/06/19 20:16 Dose: Not Given Sodium Chloride (Flush - Normal Saline) 10 ml IVF PRN PRN PRN Reason: Saline Flush
[2019-03-07] MEDS: Piperacillin/Tazobactam 3.375 GM in Sodium Chloride 0.9% 100 ML IVPB SCH ×2 (01:44→07:55)
[2019-03-07] MEDS: Vancomycin HCl 500 MG in Sodium Chloride 0.9% 100 ML IVPB SCH (02:44)
[2019-03-07] MEDS: Levothyroxine Sodium 100 MCG TAB PO SCH (05:33)
[2019-03-07 06:04] LABS: #Eosinphils 0.1 thou/uL (0.0-0.7); #Lymphocytes 2.5 thou/uL (1.20-3.40); #Monocytes 0.4 thou/uL (0.11-0.59); #Neutrophils 7.9 thou/uL (1.40-6.50); %Basophils 0.1 % (0.0-1.0); %Eosinophils 1.2 % (0.0-10.0); %Lymphocytes 22.7 % (21.0-51.0); %Monocytes 3.8 % (0.0-10.0); %Neutrophils 72.2 % (42.0-75.0); Anion Gap 8 mmol/L (10-20); BUN (Urea Nitrogen) 9 mg/dL (9.8-20.1); Calc. Creatinine Clearance 54 mL/min (70-130); Calcium 7.2 mg/dL (7.8-10.44); Carbon Dioxide 25 mmol/L (23-31); Chloride 108 mmol/L (98-107); Estimated GFR-MDRD Greater than 90; Glucose 104 mg/dL (83-110); Hemoglobin 9.9 g/dL (12.0-16.0); Magnesium 1.5 mg/dL (1.6-2.6); Mean Corpuscular HGB CONC 33.7 g/dL (32.0-36.0); Mean Corpuscular Hemoglobin 29.4 pg (27.0-31.0); Mean Corpuscular Volume 87.2 fL (78.0-98.0); Mean Platelet Volume 6.8 fL (7.4-10.4); Phosphorus 2.3 mg/dL (2.3-4.7); Platelet Count 231 thou/uL (130-400); Potassium 3.4 mmol/L (3.5-5.1); RBC Distribution Width 12.9 % (11.5-14.5); Red Blood Cell (RBC) Count 3.36 mill/uL (4.20-5.40); Sodium 138 mmol/L (136-145)
[2019-03-07] MEDS ORDERED: Magnesium 2 GM/50 ML 2 GM in Premix Bag 1 BAG IVPB SCH (07:15)
[2019-03-07] MEDS: Insulin Glargine 5 UNITS in Pre-Filled Syringe SC SCH ×2 (07:55→20:09)
[2019-03-07] MEDS: Lisinopril 20 MG TAB PO SCH (07:57)
[2019-03-07] MEDS: Famotidine 20 MG TAB PO SCH (07:57)
[2019-03-07] MEDS: Folic Acid 1 MG TAB PO SCH (07:57)
[2019-03-07] MEDS: Saccharomyces boulardii 250 MG CAP PO SCH (07:57)
[2019-03-07] MEDS: Carvedilol 6.25 MG TAB PO SCH ×2 (07:57→16:40)
[2019-03-07] MEDS: Senokot S 8.6-50 MG TAB PO SCH ×2 (07:58→20:08)
[2019-03-07] MEDS: Amlodipine 5 MG TAB PO SCH ×2 (07:58→20:08)
[2019-03-07] MEDS: Amoxicillin/Potassium Clav 400 mg/5 ml Oral Suspension PO SCH ×2 (14:53→20:08)
[2019-03-07] MEDS: HumaLOG 300 UNITS/3 ML VIAL SC PRN (16:41)
[2019-03-07] MEDS: Atorvastatin Calcium 10 MG TAB PO SCH (20:07)
--- NOTE | 2019-03-07 21:58 | PDOC.PN ---
- Subjective Encounter Start Date: 03/07/19 Encounter Start Time: 13:00 Patient seen and examined for Sepsis. Feels somewhat better. Appetite improving. No new complaints. No overnight events - Objective Resuscitation Status - Order Detail: 02/27/19 14:36 Resuscitation Status Routine Resuscitation Status: DNAR: NO Resuscitation Discussed with: Discussed with patient's daughter NATALIO Reviewed: Yes Vital Signs & Weight: Vital Signs (12 hours) Temp Pulse Resp BP BP Pulse Ox 03/07/19 21:44 74 189/74 H 03/07/19 20:08 74 189/74 H 03/07/19 19:00 98.0 F 74 22 H 189/74 H 94 L 03/07/19 18:16 67 12 96 03/07/19 16:40 183/82 H 03/07/19 13:48 69 16 95 Weight Admit Weight 102 lb 9.6 oz Weight 102 lb 9.6 oz Most Recent Monitor Data Heart Rate from ECG 81 NIBP 129/61 NIBP BP-Mean 83 Respiration from ECG 20 SpO2 96 I&O: 03/06/19 03/07/19 03/08/19 06:59 06:59 06:59 Intake Total 2100 960 240 Output Total 1900 625 Balance 200 335 240 Result Diagrams: 03/07/19 05:39 03/07/19 05:39 Additional Labs: Accuchecks 03/07/19 03/07/19 03/07/19 19:28 16:23 12:25 POC Glucose 243 H 241 H 145 H 03/07/19 05:31 POC Glucose 115 H Phys Exam - Physical Examination Constitutional: NAD Respiratory: no wheezing, no rhonchi Bibasilar rales Cardiovascular: RRR, no rub Gastrointestinal: soft, non-tender, positive bowel sounds Musculoskeletal: edema present Dx/Plan - Plan DVT proph w/SCDs IMPRESSION: Sepsis with acute organ dysfunction due to Pneumonia ?Aspiration Electrolyte abn - hypernatremia/hypokalemia/hypomagnesemia Fecal impaction CKD 2 HTN - uncontrolled Dementia Moderate PEM DM2 PLAN: Change Atbx to PO Replace electrolytes Increase dose of Amlodipine AM labs Reduce IVF rate Cont modified diet Cont other meds as below DC Nelson in AM DC in AM if stable Review of Systems - Review of Systems Cardiovascular: negative: chest pain, palpitations, orthopnea, paroxysmal nocturnal dyspnea, edema, light headedness, other Gastrointestinal: negative: Nausea, Vomiting, Abdominal Pain, Diarrhea, Constipation, Melena, Hematochezia, Other - Medications/Allergies Allergies/Adverse Reactions: Allergies Allergy/AdvReac Type Severity Reaction Status Date / Time No Known Allergies Allergy Verified 02/27/19 15:57 Medications: Current Medications Acetaminophen (Tylenol) 650 mg PO Q4H PRN PRN Reason: Headache/Fever/Mild Pain (1-3) Last Admin: 03/04/19 15:07 Dose: 650 mg Albuterol/Ipratropium (Duoneb) 3 ml NEB [id number] PRN PRN Reason: SOB &/or Wheezing Albuterol/Ipratropium (Duoneb) 3 ml NEB [id number] [facility] Last Admin: 03/07/19 18:16 Dose: 3 ml Amlodipine Besylate (Norvasc) 5 mg PO BID [facility] Last Admin: 03/07/19 20:08 Dose: 5 mg Amoxicillin/Clavulanate Potassium (Augmentin 400mg/5ml Oral Susp) 400 mg PO TID [facility] Last Admin: 03/07/19 20:08 Dose: 400 mg Atorvastatin Calcium (Lipitor) 10 mg PO HS [facility] Last Admin: 03/07/19 20:07 Dose: 10 mg Carvedilol (Coreg) 12.5 mg PO BID-WM [facility] Last Admin: 03/07/19 16:40 Dose: 12.5 mg Clonidine (Catapres) 0.1 mg PO Q6HR PRN PRN Reason: Hypertension Dextrose/Water (Dextrose 50%) 25 gm SLOW IVP PRN PRN PRN Reason: Hypoglycemia Famotidine (Pepcid) 20 mg PO DAILY [facility] Last Admin: 03/07/19 07:57 Dose: 20 mg Folic Acid (Folvite) 1 mg PO DAILY [facility] Last Admin: 03/07/19 07:57 Dose: 1 mg Glucagon (Glucagon) 1 mg IM PRN PRN PRN Reason: Hypoglycemia Hydralazine HCl (Apresoline) 10 mg SLOW IVP Q4H PRN PRN Reason: SBP>170 Last Admin: 03/07/19 21:44 Dose: 10 mg Dextrose/Water (D5w) 1,000 mls @ 0 mls/hr IV .Q0M PRN PRN Reason: Hypoglycemia Insulin Glargine 5 units/ (Miscellaneous Medication) 0.05 mls @ 0 mls/hr SC HS [facility] Last Admin: 03/07/19 20:09 Dose: 0.05 mls Insulin Glargine 5 units/ (Miscellaneous Medication) 0.05 mls @ 0 mls/hr SC QAM [facility] Last Admin: 03/07/19 07:55 Dose: 0.05 mls Potassium Chloride 30 meq/ (Dextrose/Water) 1,015 mls @ 30 mls/hr IV .Q24H [facility] Last Admin: 03/07/19 13:58 Dose: Not Given Insulin Human Lispro (Humalog) 0 units SC .MILD SLIDING SCALE PRN PRN Reason: Mild Correctional Scale Last Admin: 03/07/19 16:41 Dose: 3 unit Insulin Human Lispro (Humalog) 0 units SC .BEDTIME SLIDING SC PRN PRN Reason: Bedtime Correctional Scale Last Admin: 03/05/19 20:52 Dose: 3 units Lactulose (Lactulose) 30 gm PO TID PRN PRN Reason: Constipation Levothyroxine Sodium (Synthroid) 200 mcg PO 0600 [facility] Last Admin: 03/07/19 05:33 Dose: 200 mcg Lisinopril (Zestril) 20 mg PO DAILY [facility] Last Admin: 03/07/19 07:57 Dose: 20 mg Miscellaneous Medication (Pharmacy To Dose) 1 each IVPB PRN PRN PRN Reason: Pharmacy to dose Polyethylene Glycol (Miralax) 17 gm PO DAILYPRN PRN PRN Reason: Constipation Saccharomyces Boulardii (Florastor) 250 mg PO DAILY [facility] Last Admin: 03/07/19 07:57 Dose: 250 mg Senna/Docusate Sodium (Senokot S) 1 tab PO BID [facility] Last Admin: 03/07/19 20:08 Dose: 1 tab Sodium Chloride (Flush - Normal Saline) 10 ml IVF Q12HR [facility] Last Admin: 03/07/19 20:08 Dose: Not Given Sodium Chloride (Flush - Normal Saline) 10 ml IVF PRN PRN PRN Reason: Saline Flush
[2019-03-08] MEDS: Levothyroxine Sodium 100 MCG TAB PO SCH (05:14)
[2019-03-08 05:42] LABS: #Eosinphils 0.1 thou/uL (0.0-0.7); #Lymphocytes 2.6 thou/uL (1.20-3.40); #Monocytes 0.6 thou/uL (0.11-0.59); #Neutrophils 9.2 thou/uL (1.40-6.50); %Basophils 0.4 % (0.0-1.0); %Eosinophils 0.6 % (0.0-10.0); %Lymphocytes 20.8 % (21.0-51.0); %Monocytes 4.8 % (0.0-10.0); %Neutrophils 73.5 % (42.0-75.0); Hemoglobin 10.5 g/dL (12.0-16.0); Mean Corpuscular HGB CONC 32.5 g/dL (32.0-36.0); Mean Corpuscular Hemoglobin 28.9 pg (27.0-31.0); Mean Platelet Volume 6.6 fL (7.4-10.4); Platelet Count 301 thou/uL (130-400); RBC Distribution Width 13.3 % (11.5-14.5); Red Blood Cell (RBC) Count 3.62 mill/uL (4.20-5.40); White Blood Cell (WBC) Count 12.5 thou/uL (4.8-10.8)
[2019-03-08 05:55] LABS: Phosphorus 2.3 mg/dL (2.3-4.7)
[2019-03-08 05:56] LABS: Anion Gap 12 mmol/L (10-20); BUN (Urea Nitrogen) 9 mg/dL (9.8-20.1); Calc. Creatinine Clearance 53 mL/min (70-130); Calcium 7.9 mg/dL (7.8-10.44); Carbon Dioxide 21 mmol/L (23-31); Chloride 107 mmol/L (98-107); Estimated GFR-MDRD Greater than 90; Glucose 115 mg/dL (83-110); Magnesium 1.5 mg/dL (1.6-2.6); Potassium 3.7 mmol/L (3.5-5.1); Sodium 136 mmol/L (136-145)
[2019-03-08] MEDS ORDERED: Magnesium 2 GM/50 ML 2 GM in Premix Bag 1 BAG IVPB SCH (08:15)
[2019-03-08] MEDS: Amoxicillin/Potassium Clav 400 mg/5 ml Oral Suspension PO SCH (09:10)
[2019-03-08] MEDS: Folic Acid 1 MG TAB PO SCH (09:11)
[2019-03-08] MEDS: Insulin Glargine 5 UNITS in Pre-Filled Syringe SC SCH (09:11)
[2019-03-08] MEDS: Senokot S 8.6-50 MG TAB PO SCH (09:11)
[2019-03-08] MEDS: Amlodipine 5 MG TAB PO SCH (09:11)
[2019-03-08] MEDS: Lisinopril 20 MG TAB PO SCH (09:11)
[2019-03-08] MEDS: Saccharomyces boulardii 250 MG CAP PO SCH (09:11)
[2019-03-08] MEDS: Famotidine 20 MG TAB PO SCH (09:11)
[2019-03-08] MEDS: Carvedilol 6.25 MG TAB PO SCH (09:11)
--- NOTE | 2019-03-08 10:24 | DIS ---
DATE OF ADMISSION: 02/27/2019 DATE OF DISCHARGE: 03/08/2019 DISCHARGE DISPOSITION: To [facility] facility. FOLLOWUP: Follow up with Dr. Francis at the facility. ALLERGIES: NO KNOWN DRUG ALLERGIES. CODE STATUS: Do not resuscitate. DISCHARGE MEDICATIONS: 1. Amlodipine has been increased to 5 mg twice a day. 2. Augmentin 400 mg 3 times daily for 1 more week. 3. Florastor 250 mg daily for 2 to 3 weeks. 4. Senokot-S 2 tablets b.i.d. All other home medications were left unchanged. The patient was seen and examined on the day of discharge. Denies any new complaints. No chest pain, shortness of breath, or palpitations. Constipation has improved. DIAGNOSTIC TESTS: WBC at discharge 12.5 without any left shift. TSH 0.19. BNP was 231. Lowest potassium was 2.5, phosphorus 2.3, magnesium 1.5. Repeat magnesium after 1-week is recommended. Primary care physician advised to follow. Urine culture showed Pseudomonas and Enterococcus. Please note that the patient has completed the antibiotic. Blood culture, 1 of 2 showed coagulase-negative Staphylococcus, probably contaminant. CT scan of the abdomen and pelvis done in the emergency room showed severe fecal impaction involving the rectosigmoid region with diameter measuring up to 15 cm. There was also stercoral colitis. LFTs were normal. BRIEF HOSPITAL COURSE: The patient is an 88-year-old female, who presented on 02/27/2019 with generalized weakness and lack of appetite. She also had altered mentation at the nursing facility. Workup was consistent with healthcare-associated pneumonia along with urinary tract infection as well as fecal impaction. She was placed on broad-spectrum antibiotics that has been changed to oral. Please note that she has completed the antibiotics for UTI. However, her urinalysis showed 4 to 6 wbc's with rare few bacteria. It is unclear whether the UTI is real versus colonization. She was evaluated by Gastroenterology Service as well. After lactulose, MiraLAX and suppositories, she had several bowel movements. Her constipation has resolved. She also had several electrolyte abnormalities, which has been replaced. Her magnesium on the day of discharge is 1.5. She will receive 2 g IV magnesium prior to discharge. Repeat electrolytes after 1 week is recommended. Primary care physician advised to follow. PLAN: Plan of care was discussed with the patient and the family in detail, they stated understanding. FINAL DIAGNOSES: 1. Sepsis with acute organ dysfunction. 2. Aspiration pneumonia. 3. Urinary tract infection secondary to Pseudomonas and Enterococcus, completed antibiotic. 4. Severe fecal impaction with stercoral colitis. 5. Hypertension. 6. Chronic kidney disease, stage 2. 7. Dementia. 8. Moderate protein energy malnutrition. 9. Diabetes mellitus type 2. 10. Hypothyroidism. 11. Cholelithiasis. Repeat ultrasound of the gallbladder is recommended as outpatient. Primary care physician advised to follow. The patient had an ultrasound in October of 2018 that showed cholelithiasis. Please note that the LFTs are normal. She also denies any abdominal discomfort. Total time coordinating the discharge of this patient was 39 minutes. Job ID: [id number]
[2019-03-08 11:18] VITALS: TEMP 97.4
[2019-03-08 11:38] VITALS: BP 128/76
== END 2019-03-08 12:12 | DRG 871 ==
LOC: ERS 11:18 → IMCU/EMU 15:32 → T4-A 02-28 19:10
PROVIDERS: ADMIT Internal Medicine; ATTEND Internal Medicine
DX: A41.9 Sepsis, unspecified organism (principal); J18.9 Pneumonia, unspecified organism; E43 Unspecified severe protein-calorie malnutrition; J96.01 Acute respiratory failure with hypoxia; Z68.1 Body mass index [BMI] 19.9 or less, adult; E87.0 Hyperosmolality and hypernatremia; N39.0 Urinary tract infection, site not specified; R65.20 Severe sepsis without septic shock; F03.90 Unspecified dementia, unspecified severity, without behavioral disturbance, psychotic disturbance, mood disturbance, and anxiety; E78.5 Hyperlipidemia, unspecified; E03.9 Hypothyroidism, unspecified; Z66 Do not resuscitate; K56.41 Fecal impaction; E87.6 Hypokalemia; L89.152 Pressure ulcer of sacral region, stage 2; E11.22 Type 2 diabetes mellitus with diabetic chronic kidney disease; I12.9 Hypertensive chronic kidney disease with stage 1 through stage 4 chronic kidney disease, or unspecified chronic kidney disease; N18.2 Chronic kidney disease, stage 2 (mild); E83.42 Hypomagnesemia; Z79.84 Long term (current) use of oral hypoglycemic drugs; Z86.73 Personal history of transient ischemic attack (TIA), and cerebral infarction without residual deficits; Z80.9 Family history of malignant neoplasm, unspecified
CPT/HCPCS: 36415; 36416; 51702; 70450; 71045; 74177; 80048; 80053; 80202; 81003; 81015; 82140; 82274; 83605; 83735; 83880; 84100; 84439; 84443; 84484; 85025; 86900; 86901; 87040; 87077; 87086; 87149; 87186; 87324; 87449; 93005; 94640; 94660; 94760; 96361; 96365; 96367; J0360; J1825; J1956; J2543; J3370; J3475; J3480; J3490; J7042; J7050; J7070; J7620; Q9966

== ENCOUNTER 2019-03-11 19:04 | Inpatient (IN) | payer MEDICARE, OTHER ==
[2019-03-11] MEDS ORDERED: Lorazepam 2 MG/ML VIAL ONE (19:39)
[2019-03-11 19:47] LABS: #Eosinphils 0.1 thou/uL (0.0-0.7); #Lymphocytes 3.2 thou/uL (1.20-3.40); #Monocytes 0.6 thou/uL (0.11-0.59); #Neutrophils 9.6 thou/uL (1.40-6.50); %Basophils 0.3 % (0.0-1.0); %Eosinophils 0.4 % (0.0-10.0); %Lymphocytes 23.4 % (21.0-51.0); %Monocytes 4.3 % (0.0-10.0); %Neutrophils 71.6 % (42.0-75.0); Hemoglobin 10.2 g/dL (12.0-16.0); Mean Corpuscular Hemoglobin 29.4 pg (27.0-31.0); Mean Platelet Volume 6.4 fL (7.4-10.4); Platelet Count 412 thou/uL (130-400); Red Blood Cell (RBC) Count 3.47 mill/uL (4.20-5.40); White Blood Cell (WBC) Count 13.5 thou/uL (4.8-10.8)
[2019-03-11 19:57] LABS: Phosphorus 2.7 mg/dL (2.3-4.7)
[2019-03-11 20:02] LABS: ALT (SGPT) 20 U/L (8-55); AST (SGOT) 12 U/L (5-34); Albumin 2.4 g/dL (3.4-4.8); Alkaline Phosphatase 63 U/L (40-150); Anion Gap 13 mmol/L (10-20); BUN (Urea Nitrogen) 13 mg/dL (9.8-20.1); Bilirubin, Total 0.4 mg/dL (0.2-1.2); Calc. Creatinine Clearance 0 mL/min (70-130); Carbon Dioxide 24 mmol/L (23-31); Chloride 104 mmol/L (98-107); Estimated GFR-MDRD 86; Globulin 3.1 g/dL (2.4-3.5); Glucose 204 mg/dL (83-110); Magnesium 1.6 mg/dL (1.6-2.6); Potassium 4.4 mmol/L (3.5-5.1); Protein, Total 5.5 g/dL (6.0-8.3); Sodium 137 mmol/L (136-145)
--- NOTE | 2019-03-11 20:07 | RAD ---
AP VIEW CHEST: 03/11/19 HISTORY: Respiratory distress. Aspiration pneumonia. AP view chest is obtained on 03/11/19. Comparison made to previous exam from 02/27/19. AP view chest demonstrates interval development of areas of air space opacities in the right lung ba se. Area of air space opacity remains in the left lower lobe. Findings compatible with bibasilar area s of pneumonia. Left lung base is unchanged while the right lung base is developed. No evidence of pn eumothorax seen. POS: [facility]
[2019-03-11] MEDS ORDERED: Acetaminophen 325 MG TAB PO PRN (21:21)
[2019-03-11] MEDS ORDERED: Vancomycin HCl 1 GM in Premix Bag 1 BAG IVPB SCH (21:30)
[2019-03-11] MEDS ORDERED: Dextrose 50% Abboject 50 ML SYRINGE SLOW IVP PRN (21:38)
[2019-03-11] MEDS ORDERED: Dextrose 5% in Water 1,000 ML IV PRN (21:38)
[2019-03-11] MEDS ORDERED: HumaLOG 300 UNITS/3 ML VIAL SC PRN (21:38)
[2019-03-11] MEDS ORDERED: hydrALAZINE 20 MG/ML VIAL SLOW IVP PRN (21:41)
[2019-03-11 21:55] LABS: Bilirubin Negative (Negative); Blood, Urine Negative (Negative); Clarity CLOUDY (Clear); Glucose, Urine (Dipstick) 100 mg/dL (Negative); Leukocyte Moderate (Negative); Nitrite Negative (Negative); Protein, Urine (Dipstick) Negative (Neg-Trace); Specific Gravity, Urine 1.013 (1.002-1.036); pH, Urine 7.5 (5.0-9.0)
[2019-03-11 21:58] LABS: Bacteria/HPF None Seen HPF (None Seen)
[2019-03-11] MEDS ORDERED: Piperacillin/Tazobactam 4.5 GM VIAL ONE (21:58)
[2019-03-11 21:59] LABS: Pathc Cast-AUWi Flag 8.84 (0-2.49); Yeast-AUWi Flag 133.2 (0-25.0)
[2019-03-11 22:08] LABS: RBC/HPF None Seen HPF (0-3); Yeast-All Forms 2+ HPF (None Seen)
[2019-03-11 22:09] LABS: Hyaline Casts/LPF 0-3 HYALINE CAST LPF (0-3 Hyaline); Manual Microscopic Reviewed? No Path Casts Seen; Renal Epithelial None Seen HPF (0-3); Transitional Epithelial NONE SEEN HPF (0-3)
--- NOTE | 2019-03-12 00:09 | HP ---
CHIEF COMPLAINT: Altered mental status. HISTORY OF PRESENT ILLNESS: This patient is an 88-year-old female, who was just discharged from this facility after 9 day admission on 03/08/2019. At that time, the patient had aspiration pneumonia in the left lung. She also had urinary tract infection growing Pseudomonas and enterococcus. She was treated for those with IV antibiotics, subsequently discharged on oral Augmentin and discharged back to a nursing facility. The patient's family visited her today and felt that she was not at her normal baseline and she was subsequently brought back to the emergency department where x-rays revealed that she has a new pneumonia in the right base consistent with a recurrent aspiration. The patient's family communicated very clearly to the emergency room physician that their goal at this point was to go ahead and treat her aspiration pneumonia, but to pursue hospice care and the patient is a do not resuscitate. The patient herself is not able to give significant history, because of chronic dementia and current altered mental status. Also of note, the patient had disimpaction performed by the ER physician who removed 3 large clumps of stool followed by 400-500 mL gush of stool. Following that, the patient presently says she does not know if she is short of breath, but says no when asked if she is having any abdominal pain. Also of note, the patient's family is not present at this moment, but apparently were here just recently. We will attempt to find them again and followup based on the record of the patient's recent discharge. PAST MEDICAL HISTORY: Includes the above mentioned aspiration, chronic dementia, hypertension, diabetes type 2, hyperlipidemia, hypothyroidism, history of a stroke, history of decubitus ulcers. PAST SURGICAL HISTORY: She has a thyroidectomy scar, which appears to be consistent with her history. FAMILY HISTORY: Notable for Parkinson's and cancer. SOCIAL HISTORY: Nonsmoker, nondrinker. She was a DNAR. On previous admission family made it clear that that is the plan again and would like to pursue hospice care and prefer not to send her back to the nursing facility on hospice. ALLERGIES: NONE. MEDICATIONS: At the time of most recent discharge on the ; 1. DuoNebs p.r.n. 2. Amlodipine 5 mg b.i.d. 3. Augmentin 400 mg t.i.d. in suspension form. 4. Florastor. 5. Senokot. 6. Vitamin D3. 7. Metformin 500 mg b.i.d. with meals. 8. Lisinopril 20 mg p.o. daily. 9. Caltrate with vitamin D. 10. Atorvastatin 10 mg at bedtime. 11. Carvedilol 12.5 mg b.i.d. 12. Famotidine 20 mg b.i.d. 13. Calcium. 14. Potassium 20 mEq daily. 15. Multivitamin. 16. Milk of magnesia 30 mL p.o. p.r.n. 17. Guaifenesin. 18. Dulcolax. 19. Acetaminophen. 20. Levothyroxine 200 mcg daily. 21. Polyethylene glycol. 22. Zofran ODT. 23. Senna. 24. Lactulose p.r.n. 25. Diphenhydramine p.r.n. 26. Clonidine 0.1 mg q.6 hours p.r.n. hypertension. 27. B12. 28. Ferrous sulfate 325 daily. 29. Levothyroxine 25 mcg in addition to the 200 for a total of 225. 30. Folic acid. PHYSICAL EXAMINATION: VITAL SIGNS: BP was 183/133, pulse 104, respirations 19, temp 98.1. Most recent set of vitals BP 158/101, pulse 91, respirations 17, temperature is 98.2, O2 saturations 96% on 2 L. GENERAL APPEARANCE: The patient is age appropriate. She appears to be somewhat uncomfortable, but not distressed. She is moaning a bit. She will make eye contact. She will answer short questions, but definitely has the dementia. HEENT: PERRL, no OP lesions. Slightly dry oral mucosa. NECK: Supple and symmetric. Thyroidectomy scar present at the anterior neck base. HEART: Regular rate and rhythm without murmurs, gallops, or rubs. LUNGS: Clear to auscultation bilaterally. I cannot appreciate wheezes or rales in either base, but she is not taking good deep breaths for me. ABDOMEN: Protuberant. It is not tense. It is not tender in any way that I can appreciate. She does have bowel sounds. EXTREMITIES: Have trace pretibial pitting edema at the ankle areas. SKIN: Warm and dry. NEUROLOGIC: As above, the patient is confused and moving a bit in the bed. Does not have any obvious gross deficits. LABORATORY DATA: White count 13.5, hemoglobin 10.2, platelets 412. Sodium 137, potassium 4.4, chloride 104, CO2 is 24, BUN 13, creatinine 0.65, glucose 204, lactic acid 1.6, calcium 8.0, Mag is 1.6, phosphorus 2.7, ALT 12. Ammonia is 18. Albumin 2.4. IMAGING: Chest x-ray again reveals the persistent left lower lobe infiltrate with a new right lower lobe infiltrate consistent with recurrent aspiration. IMPRESSION AND PLAN: Recurrent aspiration pneumonia in a patient with chronic dimension and a history of stroke. The patient was recently admitted with left-sided aspiration, now has evidence of right-sided aspiration. The family does desire treatment of this episode of aspiration pneumonia, so we will go ahead and cover her with Zosyn. We will add some vancomycin being that she was just here in the hospital and had significant antibiotics exposure at that time as well. We will ask speech therapy to see the patient again with the recurrence of the aspiration. The family has made it clear that they are not desirous of pursuing a PEG tube. Hypertension: The patient's blood pressure is fairly high. It looks like it has been the case with her previous admission as well, although it was not quite this high I believe. It is likely getting better after she has been disimpacted. We will continue to follow and give p.r.n. medications. The patient typically takes Coreg and Catapres, but I am keeping her n.p.o. for now, so we will keep those medications on hold and give IVs only. Diabetes mellitus. We will give Accu-Cheks and very mild sliding scale as she is going to stay n.p.o. Chronic dementia, stable. Hyperlipidemia, holding medications. DISPOSITION: Again, patient's family is desirous of pursuing hospice although they would like treatment at this time. We will cover with antibiotics, get a case management consult to consider hospice evaluation along with a palliative care consult. Job ID: [id number]
[2019-03-12] MEDS: Piperacillin/Tazobactam 3.375 GM in Sodium Chloride 0.9% 100 ML IVPB SCH ×3 (02:47→14:25)
[2019-03-12] MEDS ORDERED: Milk Of Magnesia 30 ML UDCUP PO PRN (07:50)
[2019-03-12] MEDS ORDERED: Bisacodyl 10 MG SUPP PR PRN (07:50)
[2019-03-12] MEDS ORDERED: diphenhydrAMINE 25 MG CAP PO PRN (07:50)
[2019-03-12] MEDS ORDERED: Ondansetron ODT 4 MG TAB PO PRN (07:50)
[2019-03-12] MEDS ORDERED: Diabetic Tussin 200 MG/10 ML UDCUP PO PRN (07:50)
[2019-03-12] MEDS ORDERED: Calcium Carbonate 500 MG ChewTAB PO SCH (08:00)
[2019-03-12] MEDS ORDERED: metFORMIN 500 MG TAB PO SCH (08:00)
[2019-03-12] MEDS ORDERED: Ferrous Sulfate 325 MG TAB PO SCH (08:00)
[2019-03-12 08:15] LABS: #Basophils 0.1 thou/uL (0.0-0.2); #Monocytes 0.6 thou/uL (0.11-0.59); #Neutrophils 10.2 thou/uL (1.40-6.50); %Basophils 0.5 % (0.0-1.0); %Eosinophils 0.4 % (0.0-10.0); %Lymphocytes 15.8 % (21.0-51.0); %Monocytes 4.3 % (0.0-10.0); Hemoglobin 8.7 g/dL (12.0-16.0); Mean Corpuscular HGB CONC 33.2 g/dL (32.0-36.0); Mean Corpuscular Hemoglobin 29.5 pg (27.0-31.0); Mean Corpuscular Volume 88.7 fL (78.0-98.0); Mean Platelet Volume 6.4 fL (7.4-10.4); Platelet Count 331 thou/uL (130-400); RBC Distribution Width 14.3 % (11.5-14.5); Red Blood Cell (RBC) Count 2.95 mill/uL (4.20-5.40); White Blood Cell (WBC) Count 12.9 thou/uL (4.8-10.8)
[2019-03-12] MEDS ORDERED: Loratadine 10 MG TAB PO PRN (08:18)
[2019-03-12] MEDS ORDERED: Loperamide HCl 2 MG CAP PO PRN (08:18)
[2019-03-12] MEDS ORDERED: Sodium Chloride 0.65% Nasal 44 ML BOT EA NARE PRN (08:18)
[2019-03-12] MEDS ORDERED: Artificial Tears 18 DROP/0.9 ML EA EYE PRN (08:18)
[2019-03-12] MEDS ORDERED: Ondansetron PF 4 MG/2 ML Vial IVP PRN (08:18)
[2019-03-12] MEDS ORDERED: Eucerin (Mineral Oil/Petrolatum,White) 30 gm Jar TOP PRN (08:18)
[2019-03-12] MEDS ORDERED: Cepastat Lozenges 1 LOZ PO PRN (08:18)
[2019-03-12 08:31] LABS: Anion Gap 11 mmol/L (10-20); BUN (Urea Nitrogen) 11 mg/dL (9.8-20.1); Calc. Creatinine Clearance 53 mL/min (70-130); Calcium 7.7 mg/dL (7.8-10.44); Carbon Dioxide 25 mmol/L (23-31); Chloride 105 mmol/L (98-107); Estimated GFR-MDRD 86; Glucose 158 mg/dL (83-110); Potassium 3.9 mmol/L (3.5-5.1); Sodium 137 mmol/L (136-145)
[2019-03-12] MEDS ORDERED: Lisinopril 20 MG TAB PO SCH (09:00)
[2019-03-12] MEDS ORDERED: Cyanocobalamin (Vitamin B-12) 1,000 MCG TAB PO SCH (09:00)
[2019-03-12] MEDS ORDERED: Multivitamin W/ Minerals 1 TAB PO SCH (09:00)
[2019-03-12] MEDS ORDERED: Senokot S 8.6-50 MG TAB PO SCH (09:00)
[2019-03-12] MEDS ORDERED: Famotidine 20 MG TAB PO SCH (09:00)
[2019-03-12] MEDS ORDERED: Cholecalciferol (Vitamin D3) 400 UNITS TAB PO SCH (09:00)
[2019-03-12] MEDS ORDERED: Carvedilol 6.25 MG TAB PO SCH (09:00)
[2019-03-12] MEDS ORDERED: Vancomycin HCl 1 GM in Premix Bag 1 BAG IVPB SCH (09:00)
[2019-03-12] MEDS ORDERED: Saccharomyces boulardii 250 MG CAP PO SCH (09:00)
[2019-03-12] MEDS ORDERED: Folic Acid 1 MG TAB PO SCH (09:00)
[2019-03-12] MEDS ORDERED: Amlodipine 5 MG TAB PO SCH (09:00)
[2019-03-12] MEDS ORDERED: Enoxaparin Sodium 40 MG/0.4 ML SYRINGE SC SCH (09:00)
--- NOTE | 2019-03-12 10:56 | PDOC.PN ---
- Subjective Encounter Start Date: 03/12/19 Encounter Start Time: 08:50 -: old records requested/rev Patient seen and examined. No overnight events - Objective Resuscitation Status - Order Detail: 03/11/19 21:21 Resuscitation Status Routine Resuscitation Status: DNAR: NO Resuscitation Discussed with: Family MAR Reviewed: Yes Vital Signs & Weight: Vital Signs (12 hours) Temp Pulse Resp BP Pulse Ox 03/12/19 08:45 95 03/12/19 08:30 97.9 F 79 16 145/83 H 95 03/12/19 04:58 137/80 03/12/19 04:14 98.3 F 82 18 197/80 H 94 L 03/12/19 01:07 92 L 03/12/19 00:08 97.7 F 87 18 163/87 H 92 L Weight Weight 124 lb 12.506 oz Result Diagrams: 03/12/19 07:41 03/12/19 07:41 Additional Labs: Accuchecks 03/12/19 04:18 POC Glucose 182 H Radiology Reviewed by me: Yes Phys Exam - Physical Examination Constitutional: NAD HEENT: PERRLA, moist MMs, sclera anicteric Neck: no JVD Respiratory: no wheezing, no rales, no rhonchi basilar rales+ Cardiovascular: RRR, no significant murmur, no rub Gastrointestinal: soft, non-tender, no distention, positive bowel sounds Musculoskeletal: no edema, pulses present Neurological: non-focal, normal sensation Lymphatic: no nodes Psychiatric: normal affect, A&O x 3 Skin: no rash, normal turgor Dx/Plan (1) Aspiration pneumonia Code(s): J69.0 - PNEUMONITIS DUE TO INHALATION OF FOOD AND VOMIT Status: Acute (2) UTI (urinary tract infection) Status: Acute (3) Chronic anticoagulation Code(s): Z79.01 - NURSING HOME (CURRENT) USE OF ANTICOAGULANTS Status: Chronic (4) Dementia Code(s): F03.90 - UNSPECIFIED DEMENTIA WITHOUT BEHAVIORAL DISTURBANCE Status: Chronic (5) Diabetes type 2, controlled Code(s): E11.9 - TYPE 2 DIABETES MELLITUS WITHOUT COMPLICATIONS Status: Chronic (6) Dyslipidemia Code(s): E78.5 - HYPERLIPIDEMIA, UNSPECIFIED Status: Chronic (7) History of pulmonary embolism Code(s): Z86.711 - PERSONAL HISTORY OF PULMONARY EMBOLISM Status: Chronic (8) Hypertension Code(s): I10 - ESSENTIAL (PRIMARY) HYPERTENSION Status: Chronic (9) Hypothyroidism Code(s): E03.9 - HYPOTHYROIDISM, UNSPECIFIED Status: Chronic (10) Protein-calorie malnutrition, moderate Code(s): E44.0 - MODERATE PROTEIN-CALORIE MALNUTRITION Status: Chronic (11) Recurrent falls Code(s): R29.6 - REPEATED FALLS Status: Chronic (12) Sacral decubitus ulcer Code(s): L89.159 - PRESSURE ULCER OF SACRAL REGION, UNSPECIFIED STAGE Status: Chronic Qualifiers: - Plan cont current plan of care, continue antibiotics * pleasure feed with aspiration precaution, family does not want any intervention * medication reviewed as below * symptomatic treatment * continue vancomycin and zosyn * will need hospice. Review of Systems - Review of Systems Other: not reliable due to dementia - Medications/Allergies Allergies/Adverse Reactions: Allergies Allergy/AdvReac Type Severity Reaction Status Date / Time No Known Allergies Allergy Verified 02/27/19 15:57 Medications: Current Medications Acetaminophen (Tylenol) 650 mg PO Q4H PRN PRN Reason: Headache/Fever/Mild Pain (1-3) Albuterol/Ipratropium (Duoneb) 3 ml NEB [id number] [facility] Albuterol/Ipratropium (Duoneb) 3 ml NEB [id number] PRN PRN Reason: SOB &/or Wheezing Amlodipine Besylate (Norvasc) 5 mg PO BID [facility] Last Admin: 03/12/19 09:29 Dose: Not Given Artificial Tears (Tears Naturale) 2 drop EA EYE PRN PRN PRN Reason: Dry Eyes Atorvastatin Calcium (Lipitor) 10 mg PO HS [facility] Bisacodyl (Dulcolax) 10 mg [place] DAILY PRN PRN Reason: Constipation Calcium Carbonate (Tums) 1,000 mg PO BID-[facility] Last Admin: 03/12/19 09:29 Dose: Not Given Carvedilol (Coreg) 12.5 mg PO BID [facility] Last Admin: 03/12/19 09:29 Dose: Not Given Cholecalciferol (Vitamin D) 400 units PO DAILY [facility] Last Admin: 03/12/19 09:29 Dose: Not Given Cyanocobalamin (Vitamin B-12) 1,000 mcg PO DAILY [facility] Last Admin: 03/12/19 09:29 Dose: Not Given Dextrose/Water (Dextrose 50%) 25 gm SLOW IVP PRN PRN PRN Reason: Hypoglycemia Diphenhydramine HCl (Benadryl) 25 mg PO Q6H PRN PRN Reason: Itching Enoxaparin Sodium (Lovenox) 40 mg SC 0900 [facility] Last Admin: 03/12/19 08:21 Dose: 40 mg Famotidine (Pepcid) 20 mg PO BID [facility] Last Admin: 03/12/19 09:29 Dose: Not Given Ferrous Sulfate (Feosol) 325 mg PO QAM-[facility] Last Admin: 03/12/19 09:29 Dose: Not Given Folic Acid (Folvite) 1 mg PO DAILY [facility] Last Admin: 03/12/19 09:30 Dose: Not Given Glucagon (Glucagon) 1 mg IM PRN PRN PRN Reason: Hypoglycemia Guaifenesin (Robitussin Sf) 400 mg PO Q4H PRN PRN Reason: Cough Hydralazine HCl (Apresoline) 10 mg SLOW IVP Q4H PRN PRN Reason: Hypertension Piperacillin Sod/Tazobactam (Sod 3.375 gm/ Sodium Chloride) 100 mls @ 200 mls/ hr IVPB 0300,0900,1500,2100 [facility] Last Admin: 03/12/19 08:21 Dose: 100 mls Vancomycin HCl 1 gm/ Device 200 mls @ 200 mls/hr IVPB Q12HR [facility] Last Admin: 03/12/19 09:34 Dose: 200 mls Dextrose/Water (D5w) 1,000 mls @ 0 mls/hr IV .Q0M PRN PRN Reason: Hypoglycemia Insulin Human Lispro (Humalog) 0 units SC .MILD SLIDING SCALE PRN PRN Reason: Mild Correctional Scale Iron/Minerals/Multivitamins (Theragran M) 1 tab PO DAILY [facility] Last Admin: 03/12/19 09:30 Dose: Not Given Levothyroxine Sodium (Synthroid) 200 mcg PO 0600 [facility] Levothyroxine Sodium (Synthroid) 25 mcg PO 0600 [facility] Lisinopril (Zestril) 20 mg PO DAILY [facility] Last Admin: 03/12/19 09:30 Dose: Not Given Loperamide HCl (Imodium) 2 mg PO PRN PRN PRN Reason: Diarrhea/Loose Stools Loratadine (Claritin) 10 mg PO DAILYPRN PRN PRN Reason: Sinus Symptoms Magnesium Hydroxide (Milk Of Magnesium) 30 ml PO DAILY PRN PRN Reason: Constipation Metformin HCl (Glucophage) 500 mg PO BID-[facility] Last Admin: 03/12/19 09:29 Dose: Not Given Mineral Oil/White Petrolatum (Eucerin Cream) 0 gm TOP BIDPRN PRN PRN Reason: Dry Skin Ondansetron HCl (Zofran Odt) 4 mg PO Q6H PRN PRN Reason: Nausea/Vomiting Ondansetron HCl (Zofran) 4 mg IVP Q6H PRN PRN Reason: Nausea/Vomiting Polyethylene Glycol (Miralax) 17 gm PO [facility] Potassium Chloride (Klor-Con) 20 meq PO [facility] Saccharomyces Boulardii (Florastor) 250 mg PO DAILY [facility] Last Admin: 03/12/19 09:30 Dose: Not Given Senna/Docusate Sodium (Senokot S) 2 tab PO BID [facility] Last Admin: 03/12/19 09:30 Dose: Not Given Sodium Chloride ([place] Nasal [place] 0.65%) 0 ml EA NARE QIDPRN PRN PRN Reason: Nasal Congestion Throat Lozenges (Cepastat Lozenges) 1 allie PO Q2H PRN PRN Reason: Sore Throat
--- NOTE | 2019-03-12 13:38 | DIS ---
DATE OF ADMISSION: 03/11/2019 DATE OF DISCHARGE: 03/12/2019 PRIMARY CARE PHYSICIAN: Praful Francis MD DISCHARGE DISPOSITION: Hospice facility for comfort care. PRIMARY DISCHARGE DIAGNOSES: 1. Aspiration pneumonia, septic encephalopathy. 2. Urinary tract infection. SECONDARY DISCHARGE DIAGNOSES: Sacral decubitus ulcer; recurrent fall; protein-calorie malnutrition, moderate; hypothyroidism; hypertension; pulmonary embolism; dyslipidemia; diabetes type 2; dementia; chronic anticoagulation. PRIMARY PROCEDURE/OPERATION: None. RADIOLOGICAL INVESTIGATION: Chest x-ray. SIGNIFICANT LABORATORY DATA: Hemoglobin 8.7. Creatinine 0.65. Urinalysis suggestive of UTI. Blood culture negative. DISCHARGE MEDICATIONS: The patient is discharged to inpatient hospice for comfort care and she will get medicine through the hospice. CONTRAINDICATION: None. CODE STATUS: DNR. INPATIENT MEDICAL CODING TECHNICIAN: None. ALLERGIES: NO KNOWN DRUG ALLERGIES. DISCHARGE PLAN: The patient is discharged to inpatient hospice facility for comfort care. HOSPITAL COURSE: An 88-year-old female, who was admitted by Dr. Francois. Please see his H and P for further details. The patient was admitted for aspiration pneumonia. Family did not want to go for any kind of intervention. The patient was declining. Family member agreed with inpatient hospice. Family does not want to continue any aggressive intervention on this patient and that is why we started hospice evaluation and hospice agreed to take care of her for end-of-life care. Paperwork for discharge done and discharge medication will be as per Hospice Team. The patient's prognosis is extremely poor. Job ID: [id number]
[2019-03-12 14:13] VITALS: BP 145/72; TEMP 97.9
[2019-03-12 15:38] VITALS: BMI 19.5
[2019-03-12] MEDS ORDERED: Atorvastatin Calcium 10 MG TAB PO SCH (21:00)
[2019-03-12] MEDS ORDERED: Polyethylene Glycol 3350 17 GM Packet PO SCH (21:00)
[2019-03-13] MEDS ORDERED: Levothyroxine Sodium 100 MCG TAB PO SCH (06:00)
[2019-03-13] MEDS ORDERED: Levothyroxine Sodium 25 MCG TAB PO SCH (06:00)
--- NOTE | 2019-03-13 13:04 | PQF ---
FRAN BULLOCK, KIMBERLEE BARRETO MD [id number] CLINICAL DOCUMENTATION IMPROVEMENT CLARIFICATION FORM: ICD-10 Updated PLEASE DO AN ADDENDUM TO THE PROGRESS NOTE WITH ANY DOCUMENTATION UPDATES OR ADDITIONS AND CARRY THROUGH TO DC SUMMARY. THANK YOU. DATE: 03/13/19 ATTN: Dr. Paul Please exercise your independent, professional judgment in responding to the clarification form. Clinical indicators are provided on the bottom of this form for your review Please check appropriate box(es): [ x] Severe sepsis with septic encephalopathy due to: aspiration pneumonia, UTI [ ] Sepsis due to aspiration pneumonia, UTI [ ] Localized infection without sepsis [ ] Other diagnosis [ ] Unable to determine In addition, please specify: Present on Admission (POA): [ x] Yes [ ] No [ ] Unable to determine For continuity of documentation, please document condition throughout progress notes and discharge summary. Thank You. CLINICAL INDICATORS - SIGNS / SYMPTOMS / LABS Altered mental status--> Septic encephalopathy per discharge summary WBC 13.4 per 03/11 lab HR 104 per VS 03/11 ED RISK FACTORS Aspiration pneumonia, UTI 03/12 IM note 88 yof with history of aspiration pneumonia and UTI per H&P TREATMENTS: Daily CBC 03/11-03/12 orders Blood cultures x2 03/11 orders IV antibiotics - broad spectrum--> Zosyn and Vancomycin IV 03/11-03/12 per NATALIO Thank you, Rema (This form is maintained as a part of the permanent medical record) 2014 [employer]. All Rights Reserved Rema Love RN, BSN, CCDS [email or web address]
== END 2019-03-12 16:16 | disposition hospice, inpatient (51) | DRG 177 ==
LOC: ERS 19:04 → T4-B 23:41
PROVIDERS: ADMIT Internal Medicine; ATTEND Internal Medicine
DX: J69.0 Pneumonitis due to inhalation of food and vomit (principal); G93.41 Metabolic encephalopathy; N39.0 Urinary tract infection, site not specified; E44.0 Moderate protein-calorie malnutrition; Z68.1 Body mass index [BMI] 19.9 or less, adult; I10 Essential (primary) hypertension; F03.90 Unspecified dementia, unspecified severity, without behavioral disturbance, psychotic disturbance, mood disturbance, and anxiety; E78.5 Hyperlipidemia, unspecified; Z86.711 Personal history of pulmonary embolism; E03.9 Hypothyroidism, unspecified; R29.6 Repeated falls; E11.622 Type 2 diabetes mellitus with other skin ulcer; L89.159 Pressure ulcer of sacral region, unspecified stage
CPT/HCPCS: 36415; 36416; 71045; 80048; 80053; 81003; 81015; 82140; 83605; 83735; 84100; 85025; 87040; 93005; A4353; J1650; J2060; J2543; J3370; J3490; J7620